=== PATIENT | female | born 1955 | race Caucasian/White ===

== ENCOUNTER → 2018-07-19 07:21 | Outpatient (CLI) | payer OTHER, SELFPAY ==
[2018-07-19 08:06] LABS: Add Manual Diff / Slide Review NO; Basophils Percent Auto 1.1 % (0-2); Eosinophils Percent Auto 3.9 % (2-4); Hematocrit 39.2 % (36-46); Hemoglobin 13.3 g/dL (12.0-16.0); Lymphocytes Percent Auto 35.3 % (25-40); Mean Corpuscular HGB Conc 33.8 % (30-36); Mean Corpuscular Hemoglobin 29.6 PG (26-34); Mean Corpuscular Volume 87.7 fL (80-100); Monocytes Percent Auto 6.6 % (3-14); Neutrophils Absolute Auto 2600 /uL (1500-7000); Neutrophils Percent Auto 53.1 % (50-75); Platelet Count 245 X10^3/uL (150-400); Red Blood Cell Count 4.48 X10^6/uL (4.0-5.2); Red Cell Distribution Width 13.4 % (11.6-14.8); White Blood Cell Count 4.9 X10^3/uL (4.5-11.0)
[2018-07-19 08:09] LABS: Appearance Urine UA CLEAR; Bilirubin Urine UA NEGATIVE (NEGATIVE); Color Urine UA YELLOW; Glucose Urine UA NEGATIVE (Negative); Ketones Urine UA NEGATIVE (NEGATIVE); Leukocyte Esterase Urine UA 1+ (NEGATIVE); Nitrite Urine UA NEGATIVE (Negative); Occult Blood Urine UA NEGATIVE (Negative); Protein Urine UA NEGATIVE (Negative); Specific Gravity Urine UA >=1.030 (1.000-1.035); Urobilinogen Urine UA 0.2 E.U./dL (0.2)
[2018-07-19 08:12] LABS: RBC Urine None Seen (0-5/HPF)
[2018-07-19 08:15] LABS: Alanine Aminotransferase 29 IU/L (9-52); Albumin 4.5 g/dL (3.5-5.0); Albumin Globulin Ratio 1.6 (1.0-2.8); Alkaline Phosphatase 66 U/L (38-126); Aspartate Aminotransferase 20 IU/L (14-36); BUN Creatinine Ratio 20.8 (6-22); Bilirubin Total 0.5 mg/dL (0.2-1.3); Blood Urea Nitrogen 27 mg/dL (7-17); Carbon Dioxide 25 mmol/L (22-32); Chloride 107 mmol/L (98-107); Cholesterol 235 mg/dL (140-199); Estimated Glomerular Filt Rate 41.4 mL/min (>60); Globulin 2.8 g/dL (1.7-4.1); Glucose 90 mg/dL (80-110); HDL Cholesterol 41 mg/dL (40-60); HEMOLYSIS < 15 (0-50); LDL Cholesterol Calculated 165 mg/dL (<100); Potassium 4.3 mmol/L (3.4-5.1); Sodium 142 mmol/L (137-145); Total Protein 7.3 g/dL (6.3-8.2); Triglycerides 146 mg/dL (35-150)
[2018-07-19 08:21] LABS: Squamous Epithelial Cell Urine 1-5 /HPF; WBC Urine 5-10/HPF (0-5/HPF)
[2018-07-19 08:22] LABS: Bacteria Urine Few (2-10); Culture Indicated Urine Specimen Cultured
[2018-07-19 08:35] LABS: Free T3, Triiodothyronine Free 2.57 pg/mL (2.77-5.27); Free T4, Direct Thyroxine 0.98 ng/dL (0.78-2.19)
[2018-07-19 08:48] LABS: Thyroid Stimulating Hormone 3.01 uIU/mL (0.47-4.68)
== END ==
PROVIDERS: Family Provider Family Medicine; PCP Family Medicine; Visit Provider Family Medicine
DX: E03.9 Hypothyroidism, unspecified (principal); I10 Essential (primary) hypertension; N18.9 Chronic kidney disease, unspecified; R73.03 Prediabetes
CPT/HCPCS: 36415; 80053; 80061; 81003; 81015; 84439; 84443; 84481; 85025; 87086

== ENCOUNTER → 2018-08-09 11:31 | Outpatient (CLI) | payer OTHER, SELFPAY ==
--- NOTE | 2018-08-09 11:37 | DI.MG.S_ITS ---
BILATERAL DIGITAL SCREENING MAMMOGRAM 3D/2D WITH CAD: 08/09/2018 CLINICAL: Routine screening. Comparison is made to exams dated: 09/13/2016 mammogram, 03/17/2014 mammogram, and 03/03/2014 mammogram - [facility]. There are scattered fibroglandular elements in both breasts. Current study was also evaluated with a Computer Aided Detection (CAD) system. No significant masses, calcifications, or other findings are seen in either breast. There has been no significant interval change. IMPRESSION: NEGATIVE There is no mammographic evidence of malignancy. A 1 year screening mammogram is recommended. This exam was interpreted at Station ID: [id number]. NOTE: For mammograms, a report in lay terms will be sent to the patient. Approximately 15% of breast malignancies will not be visualized mammographically. In the management of a palpable breast mass, a negative mammogram must not discourage biopsy of a clinically suspicious lesion. Electronically Signed By: Arun cantor/anirudh:08/09/2018 16:57:06 letter sent: Normal Exam ACR BI-RADS Category 1: Negative [id number]
== END ==
PROVIDERS: Family Provider Family Medicine; PCP Family Medicine; Visit Provider Family Medicine
DX: Z12.31 Encounter for screening mammogram for malignant neoplasm of breast (principal)
CPT/HCPCS: 77063; 77067

== ENCOUNTER → 2018-11-18 07:47 | Outpatient (CLI) | payer OTHER, SELFPAY ==
[2018-11-18 09:46] LABS: Hemoglobin A1C% w Est Avg Glu 5.4 % (4.0-6.0)
[2018-11-18 10:12] LABS: Alanine Aminotransferase 35 IU/L (9-52); Albumin 4.6 g/dL (3.5-5.0); Albumin Globulin Ratio 2.1 (1.0-2.8); Alkaline Phosphatase 80 U/L (38-126); Aspartate Aminotransferase 26 IU/L (14-36); BUN Creatinine Ratio 19.1 (6-22); Bilirubin Total 0.6 mg/dL (0.2-1.3); Blood Urea Nitrogen 21 mg/dL (7-17); Calcium 10.2 mg/dL (8.4-10.2); Carbon Dioxide 27 mmol/L (22-32); Chloride 102 mmol/L (98-107); Cholesterol 150 mg/dL (140-199); Estimated Glomerular Filt Rate 50.2 mL/min (>60); Globulin 2.2 g/dL (1.7-4.1); Glucose 77 mg/dL (80-110); HDL Cholesterol 42 mg/dL (40-60); HEMOLYSIS < 15 (0-50); LDL Cholesterol Calculated 89 mg/dL (<100); Potassium 4.6 mmol/L (3.4-5.1); Sodium 140 mmol/L (137-145); Total Protein 6.8 g/dL (6.3-8.2); Triglycerides 97 mg/dL (35-150)
== END ==
PROVIDERS: PCP Family Medicine; Visit Provider Family Medicine
DX: E78.2 Mixed hyperlipidemia (principal); I12.9 Hypertensive chronic kidney disease with stage 1 through stage 4 chronic kidney disease, or unspecified chronic kidney disease; N18.9 Chronic kidney disease, unspecified
CPT/HCPCS: 36415; 80053; 80061; 83036

== ENCOUNTER → 2018-12-16 13:34 | Outpatient (CLI) | payer OTHER, SELFPAY ==
--- NOTE | 2018-12-16 13:36 | DI.RAD.S_ITS ---
PROCEDURE: XR CERVICAL SPINE 2V OR 3V INDICATIONS: neck and lumbar pain TECHNIQUE: 3 view(s) of the cervical spine were acquired. COMPARISON: None. FINDINGS: Bones: No fractures or dislocations to the T1 level. The lateral masses of C1 appear intact on the odontoid view. No suspicious bony lesions. Note is made of a mild degree of degenerative disc disease at C4-5 and C67. There is a moderate degree of such degeneration at C5-6. No subluxation is associated. Soft tissues: No prevertebral soft tissue swelling. IMPRESSION: Mild to moderate degenerative disc disease over the mid cervical spine best seen at C5-6 where a definite presence of of spinal stenosis is not seen. Dictated by: Kyle Packer M.D. on 12/16/2018 at 14:11 Approved by: Kyle Packer M.D. on 12/16/2018 at 14:13
--- NOTE | 2018-12-16 13:36 | DI.RAD.S_ITS ---
PROCEDURE: XR LUMBAR SPINE 2-3V INDICATIONS: neck and lumbar pain TECHNIQUE: 3 views of the lumbar spine were acquired. COMPARISON: None. FINDINGS: Bones: 5 [id number] vertebrae are present. There is normal bony alignment. No vertebral body compression fractures. No suspicious bony lesions. Soft tissues: Overlying bowel gas pattern is normal. No suspicious soft tissue calcifications. IMPRESSION: The lumbosacral spine shows minimal L5-S1 degenerative disc height reduction and facet osteoarthritis without spinal or foraminal stenosis likely present. Dictated by: Kyle Packer M.D. on 12/16/2018 at 14:13 Approved by: Kyle Packer M.D. on 12/16/2018 at 14:13
== END ==
PROVIDERS: PCP Family Medicine; Visit Provider Family Medicine
DX: M50.322 Other cervical disc degeneration at C5-C6 level (principal); M54.5 Low back pain
CPT/HCPCS: 72040; 72100

== ENCOUNTER → 2019-04-29 14:19 | Outpatient (CLI) | payer OTHER, SELFPAY ==
[2019-04-29 14:33] LABS: Bacteria Urine None Seen
[2019-04-29 15:15] LABS: Hemoglobin A1C% w Est Avg Glu 5.5 % (4.0-6.0)
[2019-04-29 15:18] LABS: Appearance Urine UA CLEAR; Bilirubin Urine UA NEGATIVE (NEGATIVE); Color Urine UA YELLOW; Glucose Urine UA NEGATIVE (Negative); Ketones Urine UA NEGATIVE (NEGATIVE); Leukocyte Esterase Urine UA NEGATIVE (NEGATIVE); Nitrite Urine UA NEGATIVE (Negative); Occult Blood Urine UA NEGATIVE (Negative); Protein Urine UA NEGATIVE (Negative); Urobilinogen Urine UA 0.2 E.U./dL (0.2)
[2019-04-29 15:27] LABS: Culture Indicated Urine Cult Not Indicated; RBC Urine 0-1/HPF (0-5/HPF); WBC Urine 0-1/HPF (0-5/HPF); pH Urine UA 5.5 (4.5-8.0)
[2019-04-29 15:51] LABS: Creatinine Urine Random 82.5 mg/dL
[2019-04-29 15:53] LABS: Alanine Aminotransferase 32 IU/L (9-52); Albumin 4.5 g/dL (3.5-5.0); Albumin Globulin Ratio 1.8 (1.0-2.8); Alkaline Phosphatase 68 U/L (38-126); Aspartate Aminotransferase 27 IU/L (14-36); BUN Creatinine Ratio 19.2 (6-22); Bilirubin Total 0.6 mg/dL (0.2-1.3); Blood Urea Nitrogen 23 mg/dL (7-17); Calcium 9.8 mg/dL (8.4-10.2); Carbon Dioxide 28 mmol/L (22-32); Chloride 104 mmol/L (98-107); Cholesterol 177 mg/dL (140-199); Estimated Glomerular Filt Rate 45.2 mL/min (>60); Globulin 2.5 g/dL (1.7-4.1); Glucose 134 mg/dL (80-110); HDL Cholesterol 58 mg/dL (40-60); HEMOLYSIS < 15 (0-50); LDL Cholesterol Calculated 101 mg/dL (<100); Potassium 4.1 mmol/L (3.4-5.1); Sodium 139 mmol/L (137-145); Triglycerides 91 mg/dL (35-150)
[2019-04-29 16:00] LABS: Microalbumi Creatinin Ratio Ur 7.2 ug/mg CR (<30); Microalbumin Urine Random < 0.6 mg/dL (0-1.6)
[2019-04-29 16:06] LABS: Free T3, Triiodothyronine Free 2.84 pg/mL (2.77-5.27); Free T4, Direct Thyroxine 0.97 ng/dL (0.78-2.19)
[2019-04-29 16:20] LABS: Thyroid Stimulating Hormone 1.89 uIU/mL (0.47-4.68)
== END ==
PROVIDERS: PCP Family Medicine; Visit Provider Specialist
DX: N18.2 Chronic kidney disease, stage 2 (mild) (principal); R80.9 Proteinuria, unspecified; E03.9 Hypothyroidism, unspecified; E11.9 Type 2 diabetes mellitus without complications; E78.5 Hyperlipidemia, unspecified; I10 Essential (primary) hypertension
CPT/HCPCS: 80053; 80061; 81001; 82043; 82570; 83036; 84439; 84443; 84481; 85999

== ENCOUNTER → 2019-06-04 10:43 | Outpatient (CLI) | payer OTHER, SELFPAY ==
[2019-06-04 10:59] LABS: Add Manual Diff / Slide Review NO; Basophils Absolute Auto 0 /uL (0-100); Basophils Percent Auto 0.8 % (0-2); Eosinophils Absolute Auto 200 /uL (0-450); Eosinophils Percent Auto 4.1 % (2-4); Hematocrit 38.4 % (36-46); Hemoglobin 13.2 g/dL (12.0-16.0); Lymphocytes Absolute Auto 1800 /uL (1100-4500); Lymphocytes Percent Auto 30.1 % (25-40); Mean Corpuscular HGB Conc 34.3 % (30-36); Mean Corpuscular Hemoglobin 30.3 PG (26-34); Mean Corpuscular Volume 88.3 fL (80-100); Monocytes Absolute Auto 500 /uL (0-900); Monocytes Percent Auto 8.2 % (3-14); Neutrophils Absolute Auto 3300 /uL (1500-7000); Neutrophils Percent Auto 56.8 % (50-75); Platelet Count 231 X10^3/uL (150-400); Red Blood Cell Count 4.35 X10^6/uL (4.0-5.2); Red Cell Distribution Width 13.4 % (11.6-14.8); White Blood Cell Count 5.8 X10^3/uL (4.5-11.0)
[2019-06-04 11:12] LABS: Alanine Aminotransferase 48 IU/L (<35); Albumin 4.3 g/dL (3.5-5.0); Albumin Globulin Ratio 1.7 (1.0-2.8); Alkaline Phosphatase 63 U/L (38-126); Aspartate Aminotransferase 41 IU/L (14-36); BUN Creatinine Ratio 19.2 (6-22); Bilirubin Total 0.5 mg/dL (0.2-1.3); Blood Urea Nitrogen 25 mg/dL (7-17); Calcium 10.1 mg/dL (8.4-10.2); Carbon Dioxide 30 mmol/L (22-32); Chloride 105 mmol/L (98-107); Estimated Glomerular Filt Rate 41.2 mL/min (>60); Globulin 2.6 g/dL (1.7-4.1); Glucose 72 mg/dL (80-110); HEMOLYSIS < 15 (0-50); Potassium 4.2 mmol/L (3.4-5.1); Sodium 142 mmol/L (137-145); Total Protein 6.9 g/dL (6.3-8.2)
== END ==
PROVIDERS: PCP Family Medicine; Visit Provider Family Medicine
DX: R10.32 Left lower quadrant pain (principal)
CPT/HCPCS: 36415; 80053; 85025

== ENCOUNTER → 2019-06-04 11:01 | Outpatient (CLI) | payer OTHER, SELFPAY ==
--- NOTE | 2019-06-04 11:15 | DI.CT.S_ITS ---
PROCEDURE: CT ABDOMEN PELVIS W CON INDICATIONS: Left lower quad abd pain TECHNIQUE: After the administration of intravenous contrast, 5 mm thick sections acquired from the diaphragm to the symphysis. 5 mm coronal and sagittal reformats were acquired. For radiation dose reduction, the following was used: automated exposure control, adjustment of mA and/or kV according to patient size. COMPARISON: None. FINDINGS: Image quality: Excellent. ABDOMEN: Lung bases: Lung bases are clear. Heart size is normal. Solid organs: Liver is normal in size and enhancement. Gallbladder is unremarkable the. Biliary system is non dilated. Pancreas enhances normally. Spleen is normal in size and enhancement. No adrenal nodules. Kidneys demonstrate normal size and enhancement, without hydronephrosis. Peritoneum and bowel: Bowel loops demonstrate normal wall thickness and caliber. No free fluid or air. Mild sigmoid diverticulosis without evidence of diverticulitis. Normal appendix. No abscess. Nodes and vessels: No retroperitoneal or mesenteric adenopathy by size criteria. Aorta and inferior vena cava are normal in size. Miscellaneous: No ventral hernias. PELVIS: Genitourinary: Bladder wall thickness is normal. Miscellaneous: No inguinal hernias or adenopathy. Bones: No suspicious bony lesions. No vertebral body compression fractures. IMPRESSION: Mild sigmoid diverticulosis without evidence of diverticulitis. Otherwise negative study. Dictated by: Augustine Varela M.D. on 06/04/2019 at 13:24 Approved by: Augustine Varela M.D. on 06/04/2019 at 13:26
== END ==
PROVIDERS: PCP Family Medicine; Visit Provider Family Medicine
DX: R10.32 Left lower quadrant pain (principal); K57.30 Diverticulosis of large intestine without perforation or abscess without bleeding
CPT/HCPCS: 36415; 74177; 80053; 85025; Q9967

== ENCOUNTER 2019-06-12 10:30 | Outpatient (RCR) | payer OTHER, SELFPAY ==
--- NOTE | 2018-12-24 18:21 | PT.OIE ---
Current Diagnoses Pain in right knee (12/24/18) Pain in left knee (12/24/18) Cervicalgia (12/24/18) Low back pain (12/24/18) Abnormal posture (12/24/18) Weakness (12/24/18) Past Medical History (Last Reviewed 08/07/18 @ 12:40 by Camila Waer DO) Anemia (Chronic) Breast cancer (Chronic ~05/2014) Colon polyps (Chronic ~2015) Diverticular disease (Chronic ~2015) Eczema (Chronic) Endometriosis (Chronic) Foot pain (Chronic ~2017) Heart murmur (Chronic) Heavy menstrual period (Chronic) Hemorrhoid (Chronic) Hypertension (Chronic) Hyperthyroidism (Chronic) Hypothyroidism (Chronic) Kidney failure (Chronic) Osteoarthritis (Chronic) Psoriasis (Chronic) Rheumatoid arthritis (Chronic) Seasonal allergies (Chronic) Sleep apnea (Chronic) Tinnitus (Chronic) Vision disorder (Chronic) Chicken pox (Resolved) Past Surgical History (Last Reviewed 08/07/18 @ 12:40 by Camila Ware DO) Anesthesia (Resolved) History of skin graft (Resolved ~2012) History of surgery on arm (Resolved ~2012) History of tonsillectomy (Resolved ~1983) Provider Visit Care Team Role Provider Type Camila Ware DO Attending Provider Physician Primary Care Provider Specialty: [facility] Practice Address: [address] [place] [address] Email: [email or web address] Physical Therapy Initial Evaluation PT-OP-A Visit Information Start: 12/23/18 11:09 Freq: Status: Active Protocol: Document 12/24/18 14:37 [facility] (Rec: 12/24/18 15:20 [facility] [id number]) Out-Patient Physical Therapy Visit Information Visit Information Visit Type Initial Evaluation Visit Start Time 14:35 Visit Stop Time 15:20 Total Visit Minutes 45 Visit Number 1 Number of PROGRAM STRATEGIST Visits 0 PT-OP-B Current Condition Start: 12/23/18 11:09 Freq: Status: Active Protocol: Document 12/24/18 14:37 [facility] (Rec: 12/24/18 15:20 [facility] [id number]) Current Condition History of Current Condition Current Complaints LBP, neck pain, B knees History of Current Condition Pt reports about 2 months ago she was moving and was moving a box and her back started hurting. REports she has learned to compensate for it but she has difficulty with ADLs like bending over to put on socks. Pt reports d/t neck pain she has difficulty with turning her neck when driving. Pt reprots getting out of bed has been difficult on her back. Pt has been working on losing weight and has lost 35 lbs so far. She goes for a 45 min walk every morning and wants to start yoga class but is scared d/t back, neck and knee pain. She cannot kneel d/ t knee pain. Pt has history of knee pain B for 10 years. Pt reports neck doesn't hurt as much but is really stiff. Pt reports she has reduced kidney function (50 GFR), which limits her ability to take pain killers. Prior Treatments and Tests Xrays showing mild degeneragtion Treatment Goals Patient/Caregiver Goals Learn how to hold her body, strengthen back and knees to be able to go to yoga class PT-OP-C Subjective Start: 12/23/18 11:09 Freq: Status: Active Protocol: Document 12/24/18 14:37 [facility] (Rec: 12/24/18 15:20 [facility] [id number]) Patient Questionnaires Neck Disability Index NDI Score 5 Neck Disability Index Impairment 1 to 19% Impaired (Score 1-9) Oswestry Low Back Index Oswestry Score 26 Oswestry Impairment 20 to 39% Impaired (Score 20- 39) OP-PT Pain Assessment Location neck Description- Other stiffness Other Pain Aggravating Factors driving LBP Pain Location Details R SI Intensity 4 Scale Used Numeric (1 - 10) Description Aching Frequency Intermittent Pain Duration goes away fairly fast once stopping activity Pain Aggravating Factors ADL's Sitting Bending Other Pain Aggravating Factors figure 4 position, getting out of bed Pain Alleviating Factors Heat Other Pain Alleviating Factors stop doing motion PT-OP-F Manual Assessment Start: 12/23/18 11:09 Freq: Status: Active Protocol: Document 12/24/18 14:37 [facility] (Rec: 12/24/18 15:20 [facility] [id number]) Manual Assessments Joint Mobility Assessment Joint Mobility Assessment R ant elevated innominate PT-OP-G Mobility & Gait Start: 12/23/18 11:09 Freq: Status: Active Protocol: Document 12/24/18 14:37 [facility] (Rec: 12/24/18 18:20 [facility] [id number]) OP Gait Assessment Comments Gait Comments Pt is primarily a leg walker with some transverse plane rotation but no appropriate pelvic patterns. PT-OP-J Posture/Palpation/Skin Start: 12/23/18 11:09 Freq: Status: Active Protocol: Document 12/24/18 14:37 [facility] (Rec: 12/24/18 15:20 [facility] [id number]) Posture Evaluation [facility] Postural Classification System [facility] Postural Classifications Anterior/Posterior Vertebral Compression Test 0 Elbow Flexion Test 1 Lumbar Protective Mechanism Left AP 1 Lumbar Protective Mechanism Right AP 0 Lumbar Protective Mechanism Left PA 0 Lumbar Protective Mechanism Right PA 1 Leg Swing Left Hard End Feel PT-OP-K Range of Motion Start: 12/23/18 11:09 Freq: Status: Active Protocol: Document 12/24/18 14:37 [facility] (Rec: 12/24/18 15:20 [facility] [id number]) Cervical Spine Range of Motion Cervical Spine Active Degrees Testing Position Sitting Flexion 34 Extension 35 Rotation Left 28 Rotation Right 22 Lateral Flexion Left 5 Lateral Flexion Right 21 Lumbar Spine Range of Motion Lumbar Spine Active Degrees Flexion 50 Extension 25 Rotation Left 36 Rotation Right 34 Lateral Flexion Left 19 Lateral Flexion Right 21 Comments hinge at L3 w/ext PT-OP-L Special Tests Start: 12/23/18 11:09 Freq: Status: Active Protocol: Document 12/24/18 14:37 [facility] (Rec: 12/24/18 15:20 [facility] [id number]) Special Tests Cervical Spine Special Tests Vertebrobasilar Test Results neg Alar Ligament Test Results neg Spurling's Test Test Results neg Lumbar Spine Special Tests Slump Test Results neg Mark Test Results tight iliopsoas & RF B Straight Leg Raise Test Results neg PT-OP-M Strength Start: 12/23/18 11:09 Freq: Status: Active Protocol: Document 12/24/18 14:37 [facility] (Rec: 12/24/18 15:20 [facility] [id number]) Shoulder Strength Shoulder Manual Muscle Testing Left Flexion 4+ Good+ Extension 4 Good Abduction (C5) 4+ Good+ External Rotation 4- Good- Internal Rotation 4 Good Right External Rotation 4- Good- Internal Rotation 4 Good Hip Strength Hip Manual Muscle Testing Left Flexion (L2) 4+ Good+ Extension (S1) 3+ Fair+ Abduction 3 Fair Adduction 5 Normal External Rotation 4 Good Internal Rotation 4 Good Right Flexion (L2) 4 Good Extension (S1) 3+ Fair+ Abduction 3 Fair Adduction 4- Good- External Rotation 4- Good- Internal Rotation 4 Good Knee Strength Knee Manual Muscle Testing Left Flexion (S2) 5 Normal Extension (L3) 5 Normal Right Flexion (S2) 5 Normal Extension (L3) 5 Normal Ankle/Foot Strength Ankle and Foot Manual Muscle Testing Right Dorsiflexion (L4) 5 Normal Plantarflexion (S1) 4 Good Left Dorsiflexion (L4) 5 Normal Plantarflexion (S1) 4+ Good+ Comments pain in buttocks w/heel raises PT-OP-Q Treatments Start: 12/23/18 11:09 Freq: Status: Active Protocol: Document 12/24/18 14:37 [facility] (Rec: 12/24/18 18:19 [facility] [id number]) Therapeutic Exercises Supine Exercises pelvic tilt Supine Exercise Name post Reps/Minutes 10 Comments cueing for breathing mark test Comments stopped d/t pain SKTC Side right Comments stopped d/t pain LTR Supine Exercise Name focus on core activiaton Side bilateral Reps/Minutes 15 Sitting Exercises neck ROM Sitting Exercise Name flex/ext, rot & SB Side bilateral Reps/Minutes 3 ea PT-OP-T Assessment and Plan Start: 12/23/18 11:09 Freq: Status: Active Protocol: Document 12/24/18 14:37 [facility] (Rec: 12/24/18 18:19 [facility] [id number]) Physical Therapy Assessment Rehab Potential Rehabilitation Potential Good Evaluation Complexity Number of Personal Factors/Comorbidities 3 or More Number of Body Systems Impaired 4 or More Clinical Presentation at Evaluation Evolving Impairments Impairments Activity Tolerance Balance Functional Activities Functional Mobility Gait Pain Posture ROM Soft Tissue Mobility Strength Goals activity Short Term Goal (STG) Pt will be able to attend a yoga class without inc pain. STG Duration 01/23/19 Penitentiary Goal (LTG) Pt will be able to get up/down from the ground without reported difficulty. LTG Duration 02/23/19 ROM Oxyacetylene Cutter Goal (LTG) Pt will have full neck ROM allowing her to drive without difficutly. LTG Duration 02/23/19 strength Short Term Goal (STG) Pt will be indep with HEP. STG Duration 01/23/19 Penitentiary Goal (LTG) Pt will have 5/5 LE, UE strength, LPM, EFT & VCT to show improved core stability, postural alignment and allow her to do her recreational and daily activities without pain . LTG Duration 02/23/19 Assessment Summary Assessment Pt presents with neck pain, LBP & B knee pain with gradual inc pain after onset of LBP and neck stifnness after moving 2 months ago. She has dec core & LE strength and impaired posture and gait mechanics and would benefit from skilled PT to address these deficits. Physical Therapy Plan Frequency and Duration Frequency of Treatment 2x/Week Duration of Treatment 2 months Plan of Care Start Date 12/24/18 Plan of Care End Date 02/23/19 Therapeutic Interventions Therapeutic Interventions Aquatic Therapy Balance Training Gait Training Home Exercise Program Joint Mobilizations Manual Therapy Neuromuscular Re-education Patient/Caregiver Education Self-Care/Home Management Sensory Integration Soft Tissue Mobilization Taping Therapeutic Activities Therapeutic Exercises Modalities Cold Pack/Ice Massage Electric Stimulation Hot Packs Infrared Therapy Iontophoresis Traction- Mechanical Next Visit Focus/Plan Next Note Type Treatment Note Next Visit Plan postural edu; STM to paraspinals, hip mobilizations & thoracic mobs, foam roll
--- NOTE | 2018-12-24 18:21 | PT.OPPOC ---
Current Diagnoses Pain in right knee (12/24/18) Pain in left knee (12/24/18) Cervicalgia (12/24/18) Low back pain (12/24/18) Abnormal posture (12/24/18) Weakness (12/24/18) Provider Visit Care Team Role Provider Type Camila Ware DO Attending Provider Physician Primary Care Provider Specialty: Family Practice Address: [address] [place] [address], [facility] Email: [email or web address] Plan Of Care PT-OP-T Assessment and Plan Start: 12/23/18 11:09 Freq: Status: Active Protocol: Document 12/24/18 14:37 [facility] (Rec: 12/24/18 18:19 [facility] [id number]) Physical Therapy Assessment Rehab Potential Rehabilitation Potential Good Evaluation Complexity Number of Personal Factors/Comorbidities 3 or More Number of Body Systems Impaired 4 or More Clinical Presentation at Evaluation Evolving Impairments Impairments Activity Tolerance Balance Functional Activities Functional Mobility Gait Pain Posture ROM Soft Tissue Mobility Strength Goals activity Short Term Goal (STG) Pt will be able to attend a yoga class without inc pain. STG Duration 01/23/19 Retirement Goal (LTG) Pt will be able to get up/down from the ground without reported difficulty. LTG Duration 02/23/19 ROM Material Handler 2Nd Shift Goal (LTG) Pt will have full neck ROM allowing her to drive without difficutly. LTG Duration 02/23/19 strength Short Term Goal (STG) Pt will be indep with HEP. STG Duration 01/23/19 Retirement Goal (LTG) Pt will have 5/5 LE, UE strength, LPM, EFT & VCT to show improved core stability, postural alignment and allow her to do her recreational and daily activities without pain . LTG Duration 02/23/19 Assessment Summary Assessment Pt presents with neck pain, LBP & B knee pain with gradual inc pain after onset of LBP and neck stifnness after moving 2 months ago. She has dec core & LE strength and impaired posture and gait mechanics and would benefit from skilled PT to address these deficits. Physical Therapy Plan Frequency and Duration Frequency of Treatment 2x/Week Duration of Treatment 2 months Plan of Care Start Date 12/24/18 Plan of Care End Date 02/23/19 Therapeutic Interventions Therapeutic Interventions Aquatic Therapy Balance Training Gait Training Home Exercise Program Joint Mobilizations Manual Therapy Neuromuscular Re-education Patient/Caregiver Education Self-Care/Home Management Sensory Integration Soft Tissue Mobilization Taping Therapeutic Activities Therapeutic Exercises Modalities Cold Pack/Ice Massage Electric Stimulation Hot Packs Infrared Therapy Iontophoresis Traction- Mechanical Next Visit Focus/Plan Next Note Type Treatment Note Next Visit Plan postural edu; STM to paraspinals, hip mobilizations & thoracic mobs, foam roll Plan of Care Dates Plan of Care Start Date 12/24/18 Plan of Care End Date 02/23/19 Please Sign and Return: I have reviewed this Plan of Care and certify that the skilled therapy services above are required to meet the patient?s needs. Physician Signature Date Printed Name and Credentials Clinical Instructor Signature Printed Name and Credentials
--- NOTE | 2018-12-26 12:02 | PT.OTN ---
Current Diagnoses Pain in right knee (12/26/18) Pain in left knee (12/26/18) Cervicalgia (12/26/18) Low back pain (12/26/18) Abnormal posture (12/26/18) Weakness (12/26/18) Physical Therapy Treatment Note PT-OP-A Visit Information Start: 12/23/18 11:09 Freq: Status: Active Protocol: Document 12/26/18 10:20 [facility] (Rec: 12/26/18 11:13 [facility] [id number]) Out-Patient Physical Therapy Visit Information Visit Information Visit Type Treatment Note Visit Start Time 10:25 Visit Stop Time 11:05 Total Visit Minutes 40 Visit Number 2 Number of MYSQL DEVELOPER Visits 0 PT-OP-B Current Condition Start: 12/23/18 11:09 Freq: Status: Active Protocol: Document 12/24/18 14:37 [facility] (Rec: 12/24/18 15:20 [facility] [id number]) Current Condition History of Current Condition Current Complaints LBP, neck pain, B knees History of Current Condition Pt reports about 2 months ago she was moving and was moving a box and her back started hurting. REports she has learned to compensate for it but she has difficulty with ADLs like bending over to put on socks. Pt reports d/t neck pain she has difficulty with turning her neck when driving. Pt reprots getting out of bed has been difficult on her back. Pt has been working on losing weight and has lost 35 lbs so far. She goes for a 45 min walk every morning and wants to start yoga class but is scared d/t back, neck and knee pain. She cannot kneel d/ t knee pain. Pt has history of knee pain B for 10 years. Pt reports neck doesn't hurt as much but is really stiff. Pt reports she has reduced kidney function (50 GFR), which limits her ability to take pain killers. Prior Treatments and Tests Xrays showing mild degeneragtion Treatment Goals Patient/Caregiver Goals Learn how to hold her body, strengthen back and knees to be able to go to yoga class PT-OP-C Subjective Start: 12/23/18 11:09 Freq: Status: Active Protocol: Document 12/26/18 10:20 [facility] (Rec: 12/26/18 11:13 [facility] [id number]) OP-PT Subjective Patient Comments Patient Comments Pt reports compliance w/ HEP PT-OP-F Manual Assessment Start: 12/23/18 11:09 Freq: Status: Active Protocol: Document 12/24/18 14:37 [facility] (Rec: 12/24/18 15:20 [facility] [id number]) Manual Assessments Joint Mobility Assessment Joint Mobility Assessment R ant elevated innominate PT-OP-G Mobility & Gait Start: 12/23/18 11:09 Freq: Status: Active Protocol: Document 12/24/18 14:37 [facility] (Rec: 12/24/18 18:20 [facility] [id number]) OP Gait Assessment Comments Gait Comments Pt is primarily a leg walker with some transverse plane rotation but no appropriate pelvic patterns. PT-OP-J Posture/Palpation/Skin Start: 12/23/18 11:09 Freq: Status: Active Protocol: Document 12/24/18 14:37 [facility] (Rec: 12/24/18 15:20 [facility] [id number]) Posture Evaluation [facility] Postural Classification System [facility] Postural Classifications Anterior/Posterior Vertebral Compression Test 0 Elbow Flexion Test 1 Lumbar Protective Mechanism Left AP 1 Lumbar Protective Mechanism Right AP 0 Lumbar Protective Mechanism Left PA 0 Lumbar Protective Mechanism Right PA 1 Leg Swing Left Hard End Feel PT-OP-K Range of Motion Start: 12/23/18 11:09 Freq: Status: Active Protocol: Document 12/24/18 14:37 [facility] (Rec: 12/24/18 15:20 [facility] [id number]) Cervical Spine Range of Motion Cervical Spine Active Degrees Testing Position Sitting Flexion 34 Extension 35 Rotation Left 28 Rotation Right 22 Lateral Flexion Left 5 Lateral Flexion Right 21 Lumbar Spine Range of Motion Lumbar Spine Active Degrees Flexion 50 Extension 25 Rotation Left 36 Rotation Right 34 Lateral Flexion Left 19 Lateral Flexion Right 21 Comments hinge at L3 w/ext PT-OP-L Special Tests Start: 12/23/18 11:09 Freq: Status: Active Protocol: Document 12/24/18 14:37 [facility] (Rec: 12/24/18 15:20 [facility] [id number]) Special Tests Cervical Spine Special Tests Vertebrobasilar Test Results neg Alar Ligament Test Results neg Spurling's Test Test Results neg Lumbar Spine Special Tests Slump Test Results neg Mark Test Results tight iliopsoas & RF B Straight Leg Raise Test Results neg PT-OP-M Strength Start: 12/23/18 11:09 Freq: Status: Active Protocol: Document 12/24/18 14:37 [facility] (Rec: 12/24/18 15:20 [facility] [id number]) Shoulder Strength Shoulder Manual Muscle Testing Left Flexion 4+ Good+ Extension 4 Good Abduction (C5) 4+ Good+ External Rotation 4- Good- Internal Rotation 4 Good Right External Rotation 4- Good- Internal Rotation 4 Good Hip Strength Hip Manual Muscle Testing Left Flexion (L2) 4+ Good+ Extension (S1) 3+ Fair+ Abduction 3 Fair Adduction 5 Normal External Rotation 4 Good Internal Rotation 4 Good Right Flexion (L2) 4 Good Extension (S1) 3+ Fair+ Abduction 3 Fair Adduction 4- Good- External Rotation 4- Good- Internal Rotation 4 Good Knee Strength Knee Manual Muscle Testing Left Flexion (S2) 5 Normal Extension (L3) 5 Normal Right Flexion (S2) 5 Normal Extension (L3) 5 Normal Ankle/Foot Strength Ankle and Foot Manual Muscle Testing Right Dorsiflexion (L4) 5 Normal Plantarflexion (S1) 4 Good Left Dorsiflexion (L4) 5 Normal Plantarflexion (S1) 4+ Good+ Comments pain in buttocks w/heel raises PT-OP-Q Treatments Start: 12/23/18 11:09 Freq: Status: Active Protocol: Document 12/26/18 10:20 [facility] (Rec: 12/26/18 11:13 [facility] [id number]) Therapeutic Exercises Supine Exercises bridge Supine Exercise Name w/arms overhead Reps/Minutes 15 chin tuck Supine Exercise Name chin tuck Reps/Minutes 10 pelvic tilt Supine Exercise Name post Reps/Minutes 10 Comments cueing to hold LTR Supine Exercise Name focus on core activiaton Side bilateral Reps/Minutes 8 Sidelying Exercises roll & reach Sidelying Exercise Name roll & reach Side bilateral Reps/Minutes 10 Sitting Exercises neck ROM Sitting Exercise Name chin tuck Reps/Minutes 5 Standing Exercises wall posture Standing Exercise Name w/90/90 ER Side bilateral Reps/Minutes 15 Therapeutic Activity Therapeutic Activity floor transfer Name up/down w/chair posture Name standing posture & edu of importance Comments in mirror Manual Therapy Treatment Soft Tissue Mobilization ES/QL Body Location R Mobilization Type Rolling PT-OP-R Modalities Start: 12/23/18 11:09 Freq: Status: Active Protocol: Document 12/26/18 10:20 [facility] (Rec: 12/26/18 12:02 [facility] [id number]) Hot Pack/Cold Pack Treatment Hot Pack Location lumbar & cervical Patient Position Hooklying Treatment Duration (minutes) 15 PT-OP-T Assessment and Plan Start: 12/23/18 11:09 Freq: Status: Active Protocol: Document 12/26/18 10:20 [facility] (Rec: 12/26/18 11:13 [facility] [id number]) Physical Therapy Assessment Goals activity Short Term Goal (STG) Pt will be able to attend a yoga class without inc pain. STG Duration 01/23/19 Residential Goal (LTG) Pt will be able to get up/down from the ground without reported difficulty. LTG Duration 02/23/19 ROM Banding Machine Operator Goal (LTG) Pt will have full neck ROM allowing her to drive without difficutly. LTG Duration 02/23/19 strength Short Term Goal (STG) Pt will be indep with HEP. STG Duration 01/23/19 Banding Machine Operator Goal (LTG) Pt will have 5/5 LE, UE strength, LPM, EFT & VCT to show improved core stability, postural alignment and allow her to do her recreational and daily activities without pain . LTG Duration 02/23/19 Assessment Summary Assessment pt tolerated all new exercises with cueing for breathing & core engagement and no inc in pain. She has R>L sided tightenss that improves with STM Physical Therapy Plan Frequency and Duration Frequency of Treatment 2x/Week Duration of Treatment 2 months Plan of Care Start Date 12/24/18 Plan of Care End Date 02/23/19 Next Visit Focus/Plan Next Note Type Treatment Note Next Visit Plan hip mobs & advance core
--- NOTE | 2019-01-01 16:03 | PT.OTN ---
Current Diagnoses Pain in right knee (01/01/19) Pain in left knee (01/01/19) Cervicalgia (01/01/19) Low back pain (01/01/19) Abnormal posture (01/01/19) Weakness (01/01/19) Physical Therapy Treatment Note PT-OP-A Visit Information Start: 12/23/18 11:09 Freq: Status: Active Protocol: Document 01/01/19 12:59 [facility] (Rec: 01/01/19 16:03 [facility] [id number]) Out-Patient Physical Therapy Visit Information Visit Information Visit Type Treatment Note Visit Start Time 13:45 Visit Stop Time 14:25 Total Visit Minutes 40 Visit Number 3 Number of IMPROVEMENT ENGINEER Visits 0 PT-OP-B Current Condition Start: 12/23/18 11:09 Freq: Status: Active Protocol: Document 12/24/18 14:37 [facility] (Rec: 12/24/18 15:20 [facility] [id number]) Current Condition History of Current Condition Current Complaints LBP, neck pain, B knees History of Current Condition Pt reports about 2 months ago she was moving and was moving a box and her back started hurting. REports she has learned to compensate for it but she has difficulty with ADLs like bending over to put on socks. Pt reports d/t neck pain she has difficulty with turning her neck when driving. Pt reprots getting out of bed has been difficult on her back. Pt has been working on losing weight and has lost 35 lbs so far. She goes for a 45 min walk every morning and wants to start yoga class but is scared d/t back, neck and knee pain. She cannot kneel d/ t knee pain. Pt has history of knee pain B for 10 years. Pt reports neck doesn't hurt as much but is really stiff. Pt reports she has reduced kidney function (50 GFR), which limits her ability to take pain killers. Prior Treatments and Tests Xrays showing mild degeneragtion Treatment Goals Patient/Caregiver Goals Learn how to hold her body, strengthen back and knees to be able to go to yoga class PT-OP-C Subjective Start: 12/23/18 11:09 Freq: Status: Active Protocol: Document 01/01/19 12:59 [facility] (Rec: 01/01/19 16:03 [facility] [id number]) OP-PT Subjective Patient Comments Patient Comments Pt reports compliance w/ HEP. question about posture PT-OP-F Manual Assessment Start: 12/23/18 11:09 Freq: Status: Active Protocol: Document 12/24/18 14:37 [facility] (Rec: 12/24/18 15:20 [facility] [id number]) Manual Assessments Joint Mobility Assessment Joint Mobility Assessment R ant elevated innominate PT-OP-G Mobility & Gait Start: 12/23/18 11:09 Freq: Status: Active Protocol: Document 12/24/18 14:37 [facility] (Rec: 12/24/18 18:20 [facility] [id number]) OP Gait Assessment Comments Gait Comments Pt is primarily a leg walker with some transverse plane rotation but no appropriate pelvic patterns. PT-OP-J Posture/Palpation/Skin Start: 12/23/18 11:09 Freq: Status: Active Protocol: Document 12/24/18 14:37 [facility] (Rec: 12/24/18 15:20 [facility] [id number]) Posture Evaluation [facility] Postural Classification System [facility] Postural Classifications Anterior/Posterior Vertebral Compression Test 0 Elbow Flexion Test 1 Lumbar Protective Mechanism Left AP 1 Lumbar Protective Mechanism Right AP 0 Lumbar Protective Mechanism Left PA 0 Lumbar Protective Mechanism Right PA 1 Leg Swing Left Hard End Feel PT-OP-K Range of Motion Start: 12/23/18 11:09 Freq: Status: Active Protocol: Document 12/24/18 14:37 [facility] (Rec: 12/24/18 15:20 [facility] [id number]) Cervical Spine Range of Motion Cervical Spine Active Degrees Testing Position Sitting Flexion 34 Extension 35 Rotation Left 28 Rotation Right 22 Lateral Flexion Left 5 Lateral Flexion Right 21 Lumbar Spine Range of Motion Lumbar Spine Active Degrees Flexion 50 Extension 25 Rotation Left 36 Rotation Right 34 Lateral Flexion Left 19 Lateral Flexion Right 21 Comments hinge at L3 w/ext PT-OP-L Special Tests Start: 12/23/18 11:09 Freq: Status: Active Protocol: Document 12/24/18 14:37 [facility] (Rec: 12/24/18 15:20 [facility] [id number]) Special Tests Cervical Spine Special Tests Vertebrobasilar Test Results neg Alar Ligament Test Results neg Spurling's Test Test Results neg Lumbar Spine Special Tests Slump Test Results neg Makr Test Results tight iliopsoas & RF B Straight Leg Raise Test Results neg PT-OP-M Strength Start: 12/23/18 11:09 Freq: Status: Active Protocol: Document 12/24/18 14:37 [facility] (Rec: 12/24/18 15:20 [facility] [id number]) Shoulder Strength Shoulder Manual Muscle Testing Left Flexion 4+ Good+ Extension 4 Good Abduction (C5) 4+ Good+ External Rotation 4- Good- Internal Rotation 4 Good Right External Rotation 4- Good- Internal Rotation 4 Good Hip Strength Hip Manual Muscle Testing Left Flexion (L2) 4+ Good+ Extension (S1) 3+ Fair+ Abduction 3 Fair Adduction 5 Normal External Rotation 4 Good Internal Rotation 4 Good Right Flexion (L2) 4 Good Extension (S1) 3+ Fair+ Abduction 3 Fair Adduction 4- Good- External Rotation 4- Good- Internal Rotation 4 Good Knee Strength Knee Manual Muscle Testing Left Flexion (S2) 5 Normal Extension (L3) 5 Normal Right Flexion (S2) 5 Normal Extension (L3) 5 Normal Ankle/Foot Strength Ankle and Foot Manual Muscle Testing Right Dorsiflexion (L4) 5 Normal Plantarflexion (S1) 4 Good Left Dorsiflexion (L4) 5 Normal Plantarflexion (S1) 4+ Good+ Comments pain in buttocks w/heel raises PT-OP-Q Treatments Start: 12/23/18 11:09 Freq: Status: Active Protocol: Document 01/01/19 12:59 [facility] (Rec: 01/01/19 16:03 [facility] [id number]) Therapeutic Exercises Supine Exercises bridge Supine Exercise Name w/marching Side bilateral Reps/Minutes 10 chin tuck Supine Exercise Name chin tuck Reps/Minutes 10 pelvic tilt Supine Exercise Name w/bent knee scissors Side bilateral Reps/Minutes 10 LTR Supine Exercise Name focus on core activiaton Side bilateral Reps/Minutes 5 Comments w/1 knee bent up Sitting Exercises stretches Sitting Exercise Name UT, LS, Scalenes, HS, thoracic rotation, lumbar flx, piriformis & figure 4 Side bilateral Reps/Minutes 30 sec neck ROM Sitting Exercise Name chin tuck Reps/Minutes 5 Standing Exercises hip flexor Standing Exercise Name stretch Side bilateral Reps/Minutes 30 sec wall posture Standing Exercise Name w/90/90 ER Side bilateral Reps/Minutes 15 Therapeutic Activity Therapeutic Activity posture Name standing posture & edu of importance Comments in mirror Manual Therapy Treatment Soft Tissue Mobilization ES/QL Body Location B Mobilization Type Rolling Joint Mobilizations hip Joint B Direction ER FM PT-OP-R Modalities Start: 12/23/18 11:09 Freq: Status: Active Protocol: Document 12/26/18 10:20 [facility] (Rec: 12/26/18 12:02 [facility] [id number]) Hot Pack/Cold Pack Treatment Hot Pack Location lumbar & cervical Patient Position Hooklying Treatment Duration (minutes) 15 PT-OP-T Assessment and Plan Start: 12/23/18 11:09 Freq: Status: Active Protocol: Document 01/01/19 12:59 [facility] (Rec: 01/01/19 16:03 [facility] [id number]) Physical Therapy Assessment Goals activity Short Term Goal (STG) Pt will be able to attend a yoga class without inc pain. STG Duration 01/23/19 Work Ticket Distributor Goal (LTG) Pt will be able to get up/down from the ground without reported difficulty. LTG Duration 02/23/19 ROM Work Ticket Distributor Goal (LTG) Pt will have full neck ROM allowing her to drive without difficutly. LTG Duration 02/23/19 strength Short Term Goal (STG) Pt will be indep with HEP. STG Duration 01/23/19 Mcc Goal (LTG) Pt will have 5/5 LE, UE strength, LPM, EFT & VCT to show improved core stability, postural alignment and allow her to do her recreational and daily activities without pain . LTG Duration 02/23/19 Assessment Summary Assessment Pt given stretching exercises d/t leaving for a trip next week where seh will be riding in car extended. Pt able to improve hip ROM with mobs. She was able to progress in core exercises today without inc pain Physical Therapy Plan Frequency and Duration Frequency of Treatment 2x/Week Duration of Treatment 2 months Plan of Care Start Date 12/24/18 Plan of Care End Date 02/23/19 Next Visit Focus/Plan Next Note Type Treatment Note Next Visit Plan STM to neck & mobs as needed; adavnace core
--- NOTE | 2019-01-03 16:24 | PT.OTN ---
Current Diagnoses Pain in right knee (01/03/19) Pain in left knee (01/03/19) Cervicalgia (01/03/19) Low back pain (01/03/19) Abnormal posture (01/03/19) Weakness (01/03/19) Physical Therapy Treatment Note PT-OP-A Visit Information Start: 12/23/18 11:09 Freq: Status: Active Protocol: Document 01/03/19 09:45 [facility]B (Rec: 01/03/19 16:24 AMB [id number]) Out-Patient Physical Therapy Visit Information Visit Information Visit Type Treatment Note Visit Start Time 09:45 Visit Stop Time 10:30 Total Visit Minutes 45 Visit Number 4 Number of PASTRY WRAPPER Visits 0 PT-OP-B Current Condition Start: 12/23/18 11:09 Freq: Status: Active Protocol: Document 12/24/18 14:37 [facility] (Rec: 12/24/18 15:20 [facility] [id number]) Current Condition History of Current Condition Current Complaints LBP, neck pain, B knees History of Current Condition Pt reports about 2 months ago she was moving and was moving a box and her back started hurting. REports she has learned to compensate for it but she has difficulty with ADLs like bending over to put on socks. Pt reports d/t neck pain she has difficulty with turning her neck when driving. Pt reprots getting out of bed has been difficult on her back. Pt has been working on losing weight and has lost 35 lbs so far. She goes for a 45 min walk every morning and wants to start yoga class but is scared d/t back, neck and knee pain. She cannot kneel d/ t knee pain. Pt has history of knee pain B for 10 years. Pt reports neck doesn't hurt as much but is really stiff. Pt reports she has reduced kidney function (50 GFR), which limits her ability to take pain killers. Prior Treatments and Tests Xrays showing mild degeneragtion Treatment Goals Patient/Caregiver Goals Learn how to hold her body, strengthen back and knees to be able to go to yoga class PT-OP-C Subjective Start: 12/23/18 11:09 Freq: Status: Active Protocol: Document 01/03/19 09:45 AMB (Rec: 01/03/19 16:24 AMB [id number]) OP-PT Subjective Patient Comments Patient Comments Pt reports had some back pain last night with doing single leg bridges, but doing exercises. PT-OP-F Manual Assessment Start: 12/23/18 11:09 Freq: Status: Active Protocol: Document 12/24/18 14:37 [facility] (Rec: 12/24/18 15:20 [facility] [id number]) Manual Assessments Joint Mobility Assessment Joint Mobility Assessment R ant elevated innominate PT-OP-G Mobility & Gait Start: 12/23/18 11:09 Freq: Status: Active Protocol: Document 12/24/18 14:37 [facility] (Rec: 12/24/18 18:20 [facility] [id number]) OP Gait Assessment Comments Gait Comments Pt is primarily a leg walker with some transverse plane rotation but no appropriate pelvic patterns. PT-OP-J Posture/Palpation/Skin Start: 12/23/18 11:09 Freq: Status: Active Protocol: Document 12/24/18 14:37 [facility] (Rec: 12/24/18 15:20 [facility] [id number]) Posture Evaluation [facility] Postural Classification System [facility] Postural Classifications Anterior/Posterior Vertebral Compression Test 0 Elbow Flexion Test 1 Lumbar Protective Mechanism Left AP 1 Lumbar Protective Mechanism Right AP 0 Lumbar Protective Mechanism Left PA 0 Lumbar Protective Mechanism Right PA 1 Leg Swing Left Hard End Feel PT-OP-K Range of Motion Start: 12/23/18 11:09 Freq: Status: Active Protocol: Document 12/24/18 14:37 [facility] (Rec: 12/24/18 15:20 [facility] [id number]) Cervical Spine Range of Motion Cervical Spine Active Degrees Testing Position Sitting Flexion 34 Extension 35 Rotation Left 28 Rotation Right 22 Lateral Flexion Left 5 Lateral Flexion Right 21 Lumbar Spine Range of Motion Lumbar Spine Active Degrees Flexion 50 Extension 25 Rotation Left 36 Rotation Right 34 Lateral Flexion Left 19 Lateral Flexion Right 21 Comments hinge at L3 w/ext PT-OP-L Special Tests Start: 12/23/18 11:09 Freq: Status: Active Protocol: Document 12/24/18 14:37 [facility] (Rec: 12/24/18 15:20 [facility] [id number]) Special Tests Cervical Spine Special Tests Vertebrobasilar Test Results neg Alar Ligament Test Results neg Spurling's Test Test Results neg Lumbar Spine Special Tests Slump Test Results neg Mark Test Results tight iliopsoas & RF B Straight Leg Raise Test Results neg PT-OP-M Strength Start: 12/23/18 11:09 Freq: Status: Active Protocol: Document 12/24/18 14:37 [facility] (Rec: 12/24/18 15:20 [facility] [id number]) Shoulder Strength Shoulder Manual Muscle Testing Left Flexion 4+ Good+ Extension 4 Good Abduction (C5) 4+ Good+ External Rotation 4- Good- Internal Rotation 4 Good Right External Rotation 4- Good- Internal Rotation 4 Good Hip Strength Hip Manual Muscle Testing Left Flexion (L2) 4+ Good+ Extension (S1) 3+ Fair+ Abduction 3 Fair Adduction 5 Normal External Rotation 4 Good Internal Rotation 4 Good Right Flexion (L2) 4 Good Extension (S1) 3+ Fair+ Abduction 3 Fair Adduction 4- Good- External Rotation 4- Good- Internal Rotation 4 Good Knee Strength Knee Manual Muscle Testing Left Flexion (S2) 5 Normal Extension (L3) 5 Normal Right Flexion (S2) 5 Normal Extension (L3) 5 Normal Ankle/Foot Strength Ankle and Foot Manual Muscle Testing Right Dorsiflexion (L4) 5 Normal Plantarflexion (S1) 4 Good Left Dorsiflexion (L4) 5 Normal Plantarflexion (S1) 4+ Good+ Comments pain in buttocks w/heel raises PT-OP-Q Treatments Start: 12/23/18 11:09 Freq: Status: Active Protocol: Document 01/03/19 09:45 AMB (Rec: 01/03/19 16:24 AMB [id number]) Therapeutic Exercises Supine Exercises bridge Supine Exercise Name single leg Side bilateral Reps/Minutes 10 Comments vc slower chin tuck Supine Exercise Name chin tuck Reps/Minutes 10 Other Exercises 3 Other Exercise Name quadruped UE flx Reps/Minutes 2x10 Comments with TrA stabilization 2 Other Exercise Name thread the needle Reps/Minutes 5 ea Comments vc slow 1 Other Exercise Name luli pose Comments with and without SB Manual Therapy Treatment Soft Tissue Mobilization 1 Body Location UT, cervical paraspinals, suboccipitals Mobilization Type Myofascial Release Intensity/Depth Moderate Body Position Hooklying Other Other Manual Treatments contract relax into cervical rotation PT-OP-R Modalities Start: 12/23/18 11:09 Freq: Status: Active Protocol: Document 12/26/18 10:20 [facility] (Rec: 12/26/18 12:02 [facility] [id number]) Hot Pack/Cold Pack Treatment Hot Pack Location lumbar & cervical Patient Position Hooklying Treatment Duration (minutes) 15 PT-OP-T Assessment and Plan Start: 12/23/18 11:09 Freq: Status: Active Protocol: Document 01/03/19 09:45 AMB (Rec: 01/03/19 16:24 AMB [id number]) Physical Therapy Assessment Assessment Summary Assessment Pt displayed better ROM s/p manual, tolerated quadruped exercises well on cushioned mat table. Physical Therapy Plan Next Visit Focus/Plan Next Note Type Treatment Note Next Visit Plan STM to neck & mobs as needed; advance core
--- NOTE | 2019-01-07 10:49 | PT.OTN ---
Current Diagnoses Pain in right knee (01/07/19) Pain in left knee (01/07/19) Cervicalgia (01/07/19) Low back pain (01/07/19) Abnormal posture (01/07/19) Weakness (01/07/19) Physical Therapy Treatment Note PT-OP-A Visit Information Start: 12/23/18 11:09 Freq: Status: Active Protocol: Document 01/07/19 09:55 [facility] (Rec: 01/07/19 10:48 [facility] [id number]) Out-Patient Physical Therapy Visit Information Visit Information Visit Type Treatment Note Visit Start Time 09:50 Visit Stop Time 10:30 Total Visit Minutes 40 Visit Number 5 Number of UNDERWRITING SERVICE REPRESENTATIVE Visits 0 PT-OP-B Current Condition Start: 12/23/18 11:09 Freq: Status: Active Protocol: Document 12/24/18 14:37 [facility] (Rec: 12/24/18 15:20 [facility] [id number]) Current Condition History of Current Condition Current Complaints LBP, neck pain, B knees History of Current Condition Pt reports about 2 months ago she was moving and was moving a box and her back started hurting. REports she has learned to compensate for it but she has difficulty with ADLs like bending over to put on socks. Pt reports d/t neck pain she has difficulty with turning her neck when driving. Pt reprots getting out of bed has been difficult on her back. Pt has been working on losing weight and has lost 35 lbs so far. She goes for a 45 min walk every morning and wants to start yoga class but is scared d/t back, neck and knee pain. She cannot kneel d/ t knee pain. Pt has history of knee pain B for 10 years. Pt reports neck doesn't hurt as much but is really stiff. Pt reports she has reduced kidney function (50 GFR), which limits her ability to take pain killers. Prior Treatments and Tests Xrays showing mild degeneragtion Treatment Goals Patient/Caregiver Goals Learn how to hold her body, strengthen back and knees to be able to go to yoga class PT-OP-C Subjective Start: 12/23/18 11:09 Freq: Status: Active Protocol: Document 01/03/19 09:45 [facility] (Rec: 01/03/19 16:24 AMB [id number]) OP-PT Subjective Patient Comments Patient Comments Pt reports had some back pain last night with doing single leg bridges, but doing exercises. PT-OP-F Manual Assessment Start: 12/23/18 11:09 Freq: Status: Active Protocol: Document 12/24/18 14:37 [facility] (Rec: 12/24/18 15:20 [facility] [id number]) Manual Assessments Joint Mobility Assessment Joint Mobility Assessment R ant elevated innominate PT-OP-G Mobility & Gait Start: 12/23/18 11:09 Freq: Status: Active Protocol: Document 12/24/18 14:37 [facility] (Rec: 12/24/18 18:20 [facility] [id number]) OP Gait Assessment Comments Gait Comments Pt is primarily a leg walker with some transverse plane rotation but no appropriate pelvic patterns. PT-OP-J Posture/Palpation/Skin Start: 12/23/18 11:09 Freq: Status: Active Protocol: Document 12/24/18 14:37 [facility] (Rec: 12/24/18 15:20 [facility] [id number]) Posture Evaluation [facility] Postural Classification System [facility] Postural Classifications Anterior/Posterior Vertebral Compression Test 0 Elbow Flexion Test 1 Lumbar Protective Mechanism Left AP 1 Lumbar Protective Mechanism Right AP 0 Lumbar Protective Mechanism Left PA 0 Lumbar Protective Mechanism Right PA 1 Leg Swing Left Hard End Feel PT-OP-K Range of Motion Start: 12/23/18 11:09 Freq: Status: Active Protocol: Document 12/24/18 14:37 [facility] (Rec: 12/24/18 15:20 [facility] [id number]) Cervical Spine Range of Motion Cervical Spine Active Degrees Testing Position Sitting Flexion 34 Extension 35 Rotation Left 28 Rotation Right 22 Lateral Flexion Left 5 Lateral Flexion Right 21 Lumbar Spine Range of Motion Lumbar Spine Active Degrees Flexion 50 Extension 25 Rotation Left 36 Rotation Right 34 Lateral Flexion Left 19 Lateral Flexion Right 21 Comments hinge at L3 w/ext PT-OP-L Special Tests Start: 12/23/18 11:09 Freq: Status: Active Protocol: Document 12/24/18 14:37 [facility] (Rec: 12/24/18 15:20 [facility] [id number]) Special Tests Cervical Spine Special Tests Vertebrobasilar Test Results neg Alar Ligament Test Results neg Spurling's Test Test Results neg Lumbar Spine Special Tests Slump Test Results neg Mark Test Results tight iliopsoas & RF B Straight Leg Raise Test Results neg PT-OP-M Strength Start: 12/23/18 11:09 Freq: Status: Active Protocol: Document 12/24/18 14:37 [facility] (Rec: 12/24/18 15:20 [facility] [id number]) Shoulder Strength Shoulder Manual Muscle Testing Left Flexion 4+ Good+ Extension 4 Good Abduction (C5) 4+ Good+ External Rotation 4- Good- Internal Rotation 4 Good Right External Rotation 4- Good- Internal Rotation 4 Good Hip Strength Hip Manual Muscle Testing Left Flexion (L2) 4+ Good+ Extension (S1) 3+ Fair+ Abduction 3 Fair Adduction 5 Normal External Rotation 4 Good Internal Rotation 4 Good Right Flexion (L2) 4 Good Extension (S1) 3+ Fair+ Abduction 3 Fair Adduction 4- Good- External Rotation 4- Good- Internal Rotation 4 Good Knee Strength Knee Manual Muscle Testing Left Flexion (S2) 5 Normal Extension (L3) 5 Normal Right Flexion (S2) 5 Normal Extension (L3) 5 Normal Ankle/Foot Strength Ankle and Foot Manual Muscle Testing Right Dorsiflexion (L4) 5 Normal Plantarflexion (S1) 4 Good Left Dorsiflexion (L4) 5 Normal Plantarflexion (S1) 4+ Good+ Comments pain in buttocks w/heel raises PT-OP-Q Treatments Start: 12/23/18 11:09 Freq: Status: Active Protocol: Document 01/07/19 09:55 [facility] (Rec: 01/07/19 10:48 [facility] [id number]) Therapeutic Exercises Supine Exercises chin tuck Supine Exercise Name axial elongation Reps/Minutes 5 sec 5 pelvic tilt Supine Exercise Name w/bent knee scissors Side bilateral Reps/Minutes 10 LTR Supine Exercise Name focus on core activiaton Side bilateral Reps/Minutes 10 Comments knees in air Other Exercises 3 Other Exercise Name quadruped UE flx & LE ext Reps/Minutes 2x10 Comments with TrA stabilization Manual Therapy Treatment Soft Tissue Mobilization 1 Body Location UT, cervical paraspinals, suboccipitals Mobilization Type Myofascial Release Intensity/Depth Moderate Body Position Hooklying Joint Mobilizations thoracic Joint T1-3 Direction L transverse FM PT-OP-R Modalities Start: 12/23/18 11:09 Freq: Status: Active Protocol: Document 12/26/18 10:20 [facility] (Rec: 12/26/18 12:02 [facility] [id number]) Hot Pack/Cold Pack Treatment Hot Pack Location lumbar & cervical Patient Position Hooklying Treatment Duration (minutes) 15 PT-OP-T Assessment and Plan Start: 12/23/18 11:09 Freq: Status: Active Protocol: Document 01/07/19 09:55 [facility] (Rec: 01/07/19 10:48 [facility] [id number]) Physical Therapy Assessment Goals activity Short Term Goal (STG) Pt will be able to attend a yoga class without inc pain. STG Duration 01/23/19 Alf Goal (LTG) Pt will be able to get up/down from the ground without reported difficulty. LTG Duration 02/23/19 ROM Alf Goal (LTG) Pt will have full neck ROM allowing her to drive without difficutly. LTG Duration 02/23/19 strength Short Term Goal (STG) Pt will be indep with HEP. STG Duration 01/23/19 Alf Goal (LTG) Pt will have 5/5 LE, UE strength, LPM, EFT & VCT to show improved core stability, postural alignment and allow her to do her recreational and daily activities without pain . LTG Duration 02/23/19 Assessment Summary Assessment Pt able to tolerate progression of exercises without inc pain. IMproved ROM with mobs & STM Physical Therapy Plan Frequency and Duration Frequency of Treatment 2x/Week Duration of Treatment 2 months Plan of Care Start Date 12/24/18 Plan of Care End Date 02/23/19 Next Visit Focus/Plan Next Note Type Treatment Note Next Visit Plan STM to neck & mobs as needed; advance core
--- NOTE | 2019-01-28 09:42 | PT.OTN ---
Current Diagnoses Pain in right knee (01/28/19) Pain in left knee (01/28/19) Cervicalgia (01/28/19) Low back pain (01/28/19) Abnormal posture (01/28/19) Weakness (01/28/19) Physical Therapy Treatment Note PT-OP-A Visit Information Start: 12/23/18 11:09 Freq: Status: Active Protocol: Document 01/28/19 08:16 [facility] (Rec: 01/28/19 09:41 [facility] [id number]) Out-Patient Physical Therapy Visit Information Visit Information Visit Type Treatment Note Visit Start Time 08:15 Visit Stop Time 09:03 Total Visit Minutes 48 Visit Number 6 Number of TRIM MACHINE ADJUSTER Visits 0 PT-OP-B Current Condition Start: 12/23/18 11:09 Freq: Status: Active Protocol: Document 12/24/18 14:37 [facility] (Rec: 12/24/18 15:20 [facility] [id number]) Current Condition History of Current Condition Current Complaints LBP, neck pain, B knees History of Current Condition Pt reports about 2 months ago she was moving and was moving a box and her back started hurting. REports she has learned to compensate for it but she has difficulty with ADLs like bending over to put on socks. Pt reports d/t neck pain she has difficulty with turning her neck when driving. Pt reprots getting out of bed has been difficult on her back. Pt has been working on losing weight and has lost 35 lbs so far. She goes for a 45 min walk every morning and wants to start yoga class but is scared d/t back, neck and knee pain. She cannot kneel d/ t knee pain. Pt has history of knee pain B for 10 years. Pt reports neck doesn't hurt as much but is really stiff. Pt reports she has reduced kidney function (50 GFR), which limits her ability to take pain killers. Prior Treatments and Tests Xrays showing mild degeneragtion Treatment Goals Patient/Caregiver Goals Learn how to hold her body, strengthen back and knees to be able to go to yoga class PT-OP-C Subjective Start: 12/23/18 11:09 Freq: Status: Active Protocol: Document 01/28/19 08:16 [facility] (Rec: 01/28/19 09:41 [facility] [id number]) OP-PT Subjective Patient Comments Patient Comments Pt reports she lost her sheets about 1.5 weeks ago. Notes neck range is doing a little better and she did work on that. Pt reports her back gives her a hard time went bending over and sometimes twisting. PT-OP-F Manual Assessment Start: 12/23/18 11:09 Freq: Status: Active Protocol: Document 12/24/18 14:37 [facility] (Rec: 12/24/18 15:20 [facility] [id number]) Manual Assessments Joint Mobility Assessment Joint Mobility Assessment R ant elevated innominate PT-OP-G Mobility & Gait Start: 12/23/18 11:09 Freq: Status: Active Protocol: Document 12/24/18 14:37 [facility] (Rec: 12/24/18 18:20 [facility] [id number]) OP Gait Assessment Comments Gait Comments Pt is primarily a leg walker with some transverse plane rotation but no appropriate pelvic patterns. PT-OP-J Posture/Palpation/Skin Start: 12/23/18 11:09 Freq: Status: Active Protocol: Document 12/24/18 14:37 [facility] (Rec: 12/24/18 15:20 [facility] [id number]) Posture Evaluation [place] Postural Classification System [place] Postural Classifications Anterior/Posterior Vertebral Compression Test 0 Elbow Flexion Test 1 Lumbar Protective Mechanism Left AP 1 Lumbar Protective Mechanism Right AP 0 Lumbar Protective Mechanism Left PA 0 Lumbar Protective Mechanism Right PA 1 Leg Swing Left Hard End Feel PT-OP-K Range of Motion Start: 12/23/18 11:09 Freq: Status: Active Protocol: Document 12/24/18 14:37 [facility] (Rec: 12/24/18 15:20 [facility] [id number]) Cervical Spine Range of Motion Cervical Spine Active Degrees Testing Position Sitting Flexion 34 Extension 35 Rotation Left 28 Rotation Right 22 Lateral Flexion Left 5 Lateral Flexion Right 21 Lumbar Spine Range of Motion Lumbar Spine Active Degrees Flexion 50 Extension 25 Rotation Left 36 Rotation Right 34 Lateral Flexion Left 19 Lateral Flexion Right 21 Comments hinge at L3 w/ext PT-OP-L Special Tests Start: 12/23/18 11:09 Freq: Status: Active Protocol: Document 12/24/18 14:37 [facility] (Rec: 12/24/18 15:20 [facility] [id number]) Special Tests Cervical Spine Special Tests Vertebrobasilar Test Results neg Alar Ligament Test Results neg Spurling's Test Test Results neg Lumbar Spine Special Tests Slump Test Results neg Mark Test Results tight iliopsoas & RF B Straight Leg Raise Test Results neg PT-OP-M Strength Start: 12/23/18 11:09 Freq: Status: Active Protocol: Document 12/24/18 14:37 [facility] (Rec: 12/24/18 15:20 [facility] [id number]) Shoulder Strength Shoulder Manual Muscle Testing Left Flexion 4+ Good+ Extension 4 Good Abduction (C5) 4+ Good+ External Rotation 4- Good- Internal Rotation 4 Good Right External Rotation 4- Good- Internal Rotation 4 Good Hip Strength Hip Manual Muscle Testing Left Flexion (L2) 4+ Good+ Extension (S1) 3+ Fair+ Abduction 3 Fair Adduction 5 Normal External Rotation 4 Good Internal Rotation 4 Good Right Flexion (L2) 4 Good Extension (S1) 3+ Fair+ Abduction 3 Fair Adduction 4- Good- External Rotation 4- Good- Internal Rotation 4 Good Knee Strength Knee Manual Muscle Testing Left Flexion (S2) 5 Normal Extension (L3) 5 Normal Right Flexion (S2) 5 Normal Extension (L3) 5 Normal Ankle/Foot Strength Ankle and Foot Manual Muscle Testing Right Dorsiflexion (L4) 5 Normal Plantarflexion (S1) 4 Good Left Dorsiflexion (L4) 5 Normal Plantarflexion (S1) 4+ Good+ Comments pain in buttocks w/heel raises PT-OP-Q Treatments Start: 12/23/18 11:09 Freq: Status: Active Protocol: Document 01/28/19 08:16 [facility] (Rec: 01/28/19 09:41 [facility] [id number]) Therapeutic Exercises Standing Exercises wall posture Standing Exercise Name w/90/90 ER Side bilateral Reps/Minutes 5x15 sec holds Therapeutic Activity Therapeutic Activity posture Name sitting posture Comments manual positioning & starting working on hip hinging Manual Therapy Treatment Soft Tissue Mobilization 1 Body Location UT, cervical paraspinals, suboccipitals Mobilization Type Myofascial Release Intensity/Depth Moderate Body Position Hooklying Comments w/flex & dicem Joint Mobilizations thoracic Joint T1-3 Direction PA FM PT-OP-R Modalities Start: 12/23/18 11:09 Freq: Status: Active Protocol: Document 12/26/18 10:20 [facility] (Rec: 12/26/18 12:02 [facility] [id number]) Hot Pack/Cold Pack Treatment Hot Pack Location lumbar & cervical Patient Position Hooklying Treatment Duration (minutes) 15 PT-OP-T Assessment and Plan Start: 12/23/18 11:09 Freq: Status: Active Protocol: Document 01/28/19 08:16 [facility] (Rec: 01/28/19 09:41 [facility] [id number]) Physical Therapy Assessment Goals activity Short Term Goal (STG) Pt will be able to attend a yoga class without inc pain. STG Duration 01/23/19 Correction Goal (LTG) Pt will be able to get up/down from the ground without reported difficulty. LTG Duration 02/23/19 ROM Ballpoint Pen Cartridge Tester Goal (LTG) Pt will have full neck ROM allowing her to drive without difficutly. LTG Duration 02/23/19 strength Short Term Goal (STG) Pt will be indep with HEP. STG Duration 01/23/19 Correction Goal (LTG) Pt will have 5/5 LE, UE strength, LPM, EFT & VCT to show improved core stability, postural alignment and allow her to do her recreational and daily activities without pain . LTG Duration 02/23/19 Assessment Summary Assessment Pt had improved 90./90 ER after 15 sec holds. She was able to achieve improved posture with min cueing at end of session and able to do hip hinging to initiate flex. Physical Therapy Plan Frequency and Duration Frequency of Treatment 2x/Week Duration of Treatment 2 months Plan of Care Start Date 12/24/18 Plan of Care End Date 02/23/19 Next Visit Focus/Plan Next Note Type Treatment Note Next Visit Plan active sitting
--- NOTE | 2019-01-30 11:02 | PT.OTN ---
Current Diagnoses Pain in right knee (01/30/19) Pain in left knee (01/30/19) Cervicalgia (01/30/19) Low back pain (01/30/19) Abnormal posture (01/30/19) Weakness (01/30/19) Physical Therapy Treatment Note PT-OP-A Visit Information Start: 12/23/18 11:09 Freq: Status: Active Protocol: Document 01/30/19 09:32 [facility] (Rec: 01/30/19 11:01 [facility] [id number]) Out-Patient Physical Therapy Visit Information Visit Information Visit Type Treatment Note Visit Start Time 09:45 Visit Stop Time 10:30 Total Visit Minutes 45 Visit Number 7 Number of BILL PEDDLER Visits 0 PT-OP-B Current Condition Start: 12/23/18 11:09 Freq: Status: Active Protocol: Document 12/24/18 14:37 [facility] (Rec: 12/24/18 15:20 [facility] [id number]) Current Condition History of Current Condition Current Complaints LBP, neck pain, B knees History of Current Condition Pt reports about 2 months ago she was moving and was moving a box and her back started hurting. REports she has learned to compensate for it but she has difficulty with ADLs like bending over to put on socks. Pt reports d/t neck pain she has difficulty with turning her neck when driving. Pt reprots getting out of bed has been difficult on her back. Pt has been working on losing weight and has lost 35 lbs so far. She goes for a 45 min walk every morning and wants to start yoga class but is scared d/t back, neck and knee pain. She cannot kneel d/ t knee pain. Pt has history of knee pain B for 10 years. Pt reports neck doesn't hurt as much but is really stiff. Pt reports she has reduced kidney function (50 GFR), which limits her ability to take pain killers. Prior Treatments and Tests Xrays showing mild degeneragtion Treatment Goals Patient/Caregiver Goals Learn how to hold her body, strengthen back and knees to be able to go to yoga class PT-OP-C Subjective Start: 12/23/18 11:09 Freq: Status: Active Protocol: Document 01/30/19 09:32 [facility] (Rec: 01/30/19 11:01 [facility] [id number]) OP-PT Subjective Patient Comments Patient Comments Pt reports working on her posture. PT-OP-F Manual Assessment Start: 12/23/18 11:09 Freq: Status: Active Protocol: Document 12/24/18 14:37 [facility] (Rec: 12/24/18 15:20 [facility] [id number]) Manual Assessments Joint Mobility Assessment Joint Mobility Assessment R ant elevated innominate PT-OP-G Mobility & Gait Start: 12/23/18 11:09 Freq: Status: Active Protocol: Document 12/24/18 14:37 [facility] (Rec: 12/24/18 18:20 [facility] [id number]) OP Gait Assessment Comments Gait Comments Pt is primarily a leg walker with some transverse plane rotation but no appropriate pelvic patterns. PT-OP-J Posture/Palpation/Skin Start: 12/23/18 11:09 Freq: Status: Active Protocol: Document 12/24/18 14:37 [facility] (Rec: 12/24/18 15:20 [facility] [id number]) Posture Evaluation [facility] Postural Classification System [facility] Postural Classifications Anterior/Posterior Vertebral Compression Test 0 Elbow Flexion Test 1 Lumbar Protective Mechanism Left AP 1 Lumbar Protective Mechanism Right AP 0 Lumbar Protective Mechanism Left PA 0 Lumbar Protective Mechanism Right PA 1 Leg Swing Left Hard End Feel PT-OP-K Range of Motion Start: 12/23/18 11:09 Freq: Status: Active Protocol: Document 12/24/18 14:37 [facility] (Rec: 12/24/18 15:20 [facility] [id number]) Cervical Spine Range of Motion Cervical Spine Active Degrees Testing Position Sitting Flexion 34 Extension 35 Rotation Left 28 Rotation Right 22 Lateral Flexion Left 5 Lateral Flexion Right 21 Lumbar Spine Range of Motion Lumbar Spine Active Degrees Flexion 50 Extension 25 Rotation Left 36 Rotation Right 34 Lateral Flexion Left 19 Lateral Flexion Right 21 Comments hinge at L3 w/ext PT-OP-L Special Tests Start: 12/23/18 11:09 Freq: Status: Active Protocol: Document 12/24/18 14:37 [facility] (Rec: 12/24/18 15:20 [facility] [id number]) Special Tests Cervical Spine Special Tests Vertebrobasilar Test Results neg Alar Ligament Test Results neg Spurling's Test Test Results neg Lumbar Spine Special Tests Slump Test Results neg Mark Test Results tight iliopsoas & RF B Straight Leg Raise Test Results neg PT-OP-M Strength Start: 12/23/18 11:09 Freq: Status: Active Protocol: Document 12/24/18 14:37 [facility] (Rec: 12/24/18 15:20 [facility] [id number]) Shoulder Strength Shoulder Manual Muscle Testing Left Flexion 4+ Good+ Extension 4 Good Abduction (C5) 4+ Good+ External Rotation 4- Good- Internal Rotation 4 Good Right External Rotation 4- Good- Internal Rotation 4 Good Hip Strength Hip Manual Muscle Testing Left Flexion (L2) 4+ Good+ Extension (S1) 3+ Fair+ Abduction 3 Fair Adduction 5 Normal External Rotation 4 Good Internal Rotation 4 Good Right Flexion (L2) 4 Good Extension (S1) 3+ Fair+ Abduction 3 Fair Adduction 4- Good- External Rotation 4- Good- Internal Rotation 4 Good Knee Strength Knee Manual Muscle Testing Left Flexion (S2) 5 Normal Extension (L3) 5 Normal Right Flexion (S2) 5 Normal Extension (L3) 5 Normal Ankle/Foot Strength Ankle and Foot Manual Muscle Testing Right Dorsiflexion (L4) 5 Normal Plantarflexion (S1) 4 Good Left Dorsiflexion (L4) 5 Normal Plantarflexion (S1) 4+ Good+ Comments pain in buttocks w/heel raises PT-OP-Q Treatments Start: 12/23/18 11:09 Freq: Status: Active Protocol: Document 01/30/19 09:32 [facility] (Rec: 01/30/19 11:01 [facility] [id number]) Therapeutic Exercises Standing Exercises hip hinge Standing Exercise Name w/ruler on back Side bilateral Reps/Minutes 10 squat Standing Exercise Name mini squat and sit to stand Side bilateral Reps/Minutes 15 ea Comments max cueing Therapeutic Activity Therapeutic Activity wt acceptance Name for sit to stand Comments faciliated through traction & resistance into RLE posture Name sitting posture Comments manual positioning & starting working on hip hinging; progressed into static standing posture with hip hinging Manual Therapy Treatment Soft Tissue Mobilization 1 Body Location UT, scalenes, SCM Mobilization Type Rolling Strumming Sustained Pressure Body Position Hooklying PT-OP-R Modalities Start: 12/23/18 11:09 Freq: Status: Active Protocol: Document 12/26/18 10:20 [facility] (Rec: 12/26/18 12:02 [facility] [id number]) Hot Pack/Cold Pack Treatment Hot Pack Location lumbar & cervical Patient Position Hooklying Treatment Duration (minutes) 15 PT-OP-T Assessment and Plan Start: 12/23/18 11:09 Freq: Status: Active Protocol: Document 01/30/19 09:32 [facility] (Rec: 01/30/19 11:01 [facility] [id number]) Physical Therapy Assessment Goals activity Short Term Goal (STG) Pt will be able to attend a yoga class without inc pain. STG Duration 01/23/19 Glass Rolling Machine Operator Goal (LTG) Pt will be able to get up/down from the ground without reported difficulty. LTG Duration 02/23/19 ROM Glass Rolling Machine Operator Goal (LTG) Pt will have full neck ROM allowing her to drive without difficutly. LTG Duration 02/23/19 strength Short Term Goal (STG) Pt will be indep with HEP. STG Duration 01/23/19 Prison Goal (LTG) Pt will have 5/5 LE, UE strength, LPM, EFT & VCT to show improved core stability, postural alignment and allow her to do her recreational and daily activities without pain . LTG Duration 02/23/19 Assessment Summary Assessment Pt is improving with posture with cueing but does have difficulty maintaining vertical positioned ribcage. She was able to do appropriate wt acceptance into LE for sit to stand after training with neutral back position. Physical Therapy Plan Frequency and Duration Frequency of Treatment 2x/Week Duration of Treatment 2 months Plan of Care Start Date 12/24/18 Plan of Care End Date 02/23/19 Next Visit Focus/Plan Next Note Type Treatment Note Next Visit Plan Work on squating and resisted walking in standing with wt shift
--- NOTE | 2019-02-06 13:30 | PT.OTN ---
Current Diagnoses Pain in right knee (02/06/19) Pain in left knee (02/06/19) Cervicalgia (02/06/19) Low back pain (02/06/19) Abnormal posture (02/06/19) Weakness (02/06/19) Physical Therapy Treatment Note PT-OP-A Visit Information Start: 12/23/18 11:09 Freq: Status: Active Protocol: Document 02/06/19 11:45 [facility] (Rec: 02/06/19 12:03 [facility] [id number]) Out-Patient Physical Therapy Visit Information Visit Information Visit Type Treatment Note Visit Start Time 09:45 Visit Stop Time 10:30 Total Visit Minutes 45 Visit Number 8 Number of OBJECTIVE C DEVELOPER Visits 0 PT-OP-B Current Condition Start: 12/23/18 11:09 Freq: Status: Active Protocol: Document 12/24/18 14:37 [facility] (Rec: 12/24/18 15:20 [facility] [id number]) Current Condition History of Current Condition Current Complaints LBP, neck pain, B knees History of Current Condition Pt reports about 2 months ago she was moving and was moving a box and her back started hurting. REports she has learned to compensate for it but she has difficulty with ADLs like bending over to put on socks. Pt reports d/t neck pain she has difficulty with turning her neck when driving. Pt reprots getting out of bed has been difficult on her back. Pt has been working on losing weight and has lost 35 lbs so far. She goes for a 45 min walk every morning and wants to start yoga class but is scared d/t back, neck and knee pain. She cannot kneel d/ t knee pain. Pt has history of knee pain B for 10 years. Pt reports neck doesn't hurt as much but is really stiff. Pt reports she has reduced kidney function (50 GFR), which limits her ability to take pain killers. Prior Treatments and Tests Xrays showing mild degeneragtion Treatment Goals Patient/Caregiver Goals Learn how to hold her body, strengthen back and knees to be able to go to yoga class PT-OP-C Subjective Start: 12/23/18 11:09 Freq: Status: Active Protocol: Document 02/06/19 11:45 [facility] (Rec: 02/06/19 12:03 [facility] [id number]) OP-PT Subjective Patient Comments Patient Comments Pt reports she is still very confused about the posture stuff. She wonders when her neck stiffness will loosen up and if stretching and posture exercises will help. Pt excited to go through yoga postures today. PT-OP-F Manual Assessment Start: 12/23/18 11:09 Freq: Status: Active Protocol: Document 12/24/18 14:37 [facility] (Rec: 12/24/18 15:20 [facility] [id number]) Manual Assessments Joint Mobility Assessment Joint Mobility Assessment R ant elevated innominate PT-OP-G Mobility & Gait Start: 12/23/18 11:09 Freq: Status: Active Protocol: Document 12/24/18 14:37 [facility] (Rec: 12/24/18 18:20 [facility] [id number]) OP Gait Assessment Comments Gait Comments Pt is primarily a leg walker with some transverse plane rotation but no appropriate pelvic patterns. PT-OP-J Posture/Palpation/Skin Start: 12/23/18 11:09 Freq: Status: Active Protocol: Document 12/24/18 14:37 [facility] (Rec: 12/24/18 15:20 [facility] [id number]) Posture Evaluation [facility] Postural Classification System [facility] Postural Classifications Anterior/Posterior Vertebral Compression Test 0 Elbow Flexion Test 1 Lumbar Protective Mechanism Left AP 1 Lumbar Protective Mechanism Right AP 0 Lumbar Protective Mechanism Left PA 0 Lumbar Protective Mechanism Right PA 1 Leg Swing Left Hard End Feel PT-OP-K Range of Motion Start: 12/23/18 11:09 Freq: Status: Active Protocol: Document 12/24/18 14:37 [facility] (Rec: 12/24/18 15:20 [facility] [id number]) Cervical Spine Range of Motion Cervical Spine Active Degrees Testing Position Sitting Flexion 34 Extension 35 Rotation Left 28 Rotation Right 22 Lateral Flexion Left 5 Lateral Flexion Right 21 Lumbar Spine Range of Motion Lumbar Spine Active Degrees Flexion 50 Extension 25 Rotation Left 36 Rotation Right 34 Lateral Flexion Left 19 Lateral Flexion Right 21 Comments hinge at L3 w/ext PT-OP-L Special Tests Start: 12/23/18 11:09 Freq: Status: Active Protocol: Document 12/24/18 14:37 [facility] (Rec: 12/24/18 15:20 [facility] [id number]) Special Tests Cervical Spine Special Tests Vertebrobasilar Test Results neg Alar Ligament Test Results neg Spurling's Test Test Results neg Lumbar Spine Special Tests Slump Test Results neg Mark Test Results tight iliopsoas & RF B Straight Leg Raise Test Results neg PT-OP-M Strength Start: 12/23/18 11:09 Freq: Status: Active Protocol: Document 12/24/18 14:37 [facility] (Rec: 12/24/18 15:20 [facility] [id number]) Shoulder Strength Shoulder Manual Muscle Testing Left Flexion 4+ Good+ Extension 4 Good Abduction (C5) 4+ Good+ External Rotation 4- Good- Internal Rotation 4 Good Right External Rotation 4- Good- Internal Rotation 4 Good Hip Strength Hip Manual Muscle Testing Left Flexion (L2) 4+ Good+ Extension (S1) 3+ Fair+ Abduction 3 Fair Adduction 5 Normal External Rotation 4 Good Internal Rotation 4 Good Right Flexion (L2) 4 Good Extension (S1) 3+ Fair+ Abduction 3 Fair Adduction 4- Good- External Rotation 4- Good- Internal Rotation 4 Good Knee Strength Knee Manual Muscle Testing Left Flexion (S2) 5 Normal Extension (L3) 5 Normal Right Flexion (S2) 5 Normal Extension (L3) 5 Normal Ankle/Foot Strength Ankle and Foot Manual Muscle Testing Right Dorsiflexion (L4) 5 Normal Plantarflexion (S1) 4 Good Left Dorsiflexion (L4) 5 Normal Plantarflexion (S1) 4+ Good+ Comments pain in buttocks w/heel raises PT-OP-Q Treatments Start: 12/23/18 11:09 Freq: Status: Active Protocol: Document 02/06/19 11:45 [facility] (Rec: 02/06/19 12:03 [facility] [email or web address]) Therapeutic Exercises Prone Exercises wagging tail Prone Exercise Name L/S sidebending in quadruped Side bilateral Reps/Minutes 10x5 sec holds Comments ceuing for pelvic motion Cat/Camel Prone Exercise Name cat/camel Reps/Minutes 5x10 sec hold Comments cueing for pelvic motion and T /S ext Sitting Exercises lateral sidebending Sitting Exercise Name seated lateral sidebending, upper arm into abd Side bilateral Equipment Used block/mat under pelvis Reps/Minutes 2 reps, 30 sec holds Comments pt cued for upright postur stretches Sitting Exercise Name Spinal twist Side bilateral Equipment Used block/mat under pelvis Reps/Minutes 2 reps, 30 sec holds Comments pt cued for upright posture and neck rotation at end range Standing Exercises lunges Standing Exercise Name lunges Side bilateral Equipment Used counter top for support Reps/Minutes 10 reps each side Comments used for education/ strengthening for floor transfers squat Standing Exercise Name mini squat w chair Side bilateral Reps/Minutes 15 ea Comments mod cueing for hip hinge Manual Therapy Treatment Soft Tissue Mobilization 1 Body Location UT Body Position seated Comments margarita used. with chin tucks, lev scap stretch Joint Mobilizations thoracic Joint C7-T3 Direction rotation Grade IV Body Position seated Reps/Duration 15 reps each joint, bilateral Comments 90 deg shoulder abd and contractions into adduction PT-OP-R Modalities Start: 12/23/18 11:09 Freq: Status: Active Protocol: Document 12/26/18 10:20 [facility] (Rec: 12/26/18 12:02 [facility] [id number]) Hot Pack/Cold Pack Treatment Hot Pack Location lumbar & cervical Patient Position Hooklying Treatment Duration (minutes) 15 PT-OP-T Assessment and Plan Start: 12/23/18 11:09 Freq: Status: Active Protocol: Document 02/06/19 11:45 [facility] (Rec: 02/06/19 12:03 [facility] [id number]) Physical Therapy Assessment Goals activity Short Term Goal (STG) Pt will be able to attend a yoga class without inc pain. STG Duration 01/23/19 Fpc Goal (LTG) Pt will be able to get up/down from the ground without reported difficulty. LTG Duration 02/23/19 ROM In Flight Refueling Operator Goal (LTG) Pt will have full neck ROM allowing her to drive without difficutly. LTG Duration 02/23/19 strength Short Term Goal (STG) Pt will be indep with HEP. STG Duration 01/23/19 In Flight Refueling Operator Goal (LTG) Pt will have 5/5 LE, UE strength, LPM, EFT & VCT to show improved core stability, postural alignment and allow her to do her recreational and daily activities without pain . LTG Duration 02/23/19 Assessment Summary Assessment Pt was instructed through basic yoga postures with cueing and suggestions for props and modifications she can make during classes. Pt educated on safety descending to floor and was given strengthing exercises to improve descent. Pt responded well to manual therapy and was able to achieve more cervical rotation after joint mobs. Physical Therapy Plan Frequency and Duration Frequency of Treatment 2x/Week Duration of Treatment 2 months Plan of Care Start Date 12/24/18 Plan of Care End Date 02/23/19 Next Visit Focus/Plan Next Note Type Treatment Note Next Visit Plan review yoga poses, progress squatting and lunges as appropriate
--- NOTE | 2019-02-10 18:37 | PT.OTN ---
Current Diagnoses Pain in right knee (02/10/19) Pain in left knee (02/10/19) Cervicalgia (02/10/19) Low back pain (02/10/19) Abnormal posture (02/10/19) Weakness (02/10/19) Physical Therapy Treatment Note PT-OP-A Visit Information Start: 12/23/18 11:09 Freq: Status: Active Protocol: Document 02/10/19 15:07 AR (Rec: 02/10/19 15:14 AR [id number]) Out-Patient Physical Therapy Visit Information Visit Information Visit Type Treatment Note Visit Start Time 10:33 Visit Stop Time 11:15 Total Visit Minutes 42 Visit Number 9 Number of PUTTY GLAZER Visits 0 PT-OP-B Current Condition Start: 12/23/18 11:09 Freq: Status: Active Protocol: Document 12/24/18 14:37 LR (Rec: 12/24/18 15:20 [facility] [id number]) Current Condition History of Current Condition Current Complaints LBP, neck pain, B knees History of Current Condition Pt reports about 2 months ago she was moving and was moving a box and her back started hurting. REports she has learned to compensate for it but she has difficulty with ADLs like bending over to put on socks. Pt reports d/t neck pain she has difficulty with turning her neck when driving. Pt reprots getting out of bed has been difficult on her back. Pt has been working on losing weight and has lost 35 lbs so far. She goes for a 45 min walk every morning and wants to start yoga class but is scared d/t back, neck and knee pain. She cannot kneel d/ t knee pain. Pt has history of knee pain B for 10 years. Pt reports neck doesn't hurt as much but is really stiff. Pt reports she has reduced kidney function (50 GFR), which limits her ability to take pain killers. Prior Treatments and Tests Xrays showing mild degeneragtion Treatment Goals Patient/Caregiver Goals Learn how to hold her body, strengthen back and knees to be able to go to yoga class PT-OP-C Subjective Start: 12/23/18 11:09 Freq: Status: Active Protocol: Document 02/10/19 15:07 AR (Rec: 02/10/19 15:14 AR [id number]) OP-PT Subjective Patient Comments Patient Comments Pt wanted to review HEP, as she was confused about multiple exercises and had knee pain with lunges. Pt reported a pinching sensation in R anterior hip in sitting cross legged. Pt reported she felt great after manual therapy for her neck last week . PT-OP-F Manual Assessment Start: 12/23/18 11:09 Freq: Status: Active Protocol: Document 12/24/18 14:37 [facility] (Rec: 12/24/18 15:20 [facility] [id number]) Manual Assessments Joint Mobility Assessment Joint Mobility Assessment R ant elevated innominate PT-OP-G Mobility & Gait Start: 12/23/18 11:09 Freq: Status: Active Protocol: Document 12/24/18 14:37 [facility] (Rec: 12/24/18 18:20 [facility] [id number]) OP Gait Assessment Comments Gait Comments Pt is primarily a leg walker with some transverse plane rotation but no appropriate pelvic patterns. PT-OP-J Posture/Palpation/Skin Start: 12/23/18 11:09 Freq: Status: Active Protocol: Document 12/24/18 14:37 [facility] (Rec: 12/24/18 15:20 [facility] [id number]) Posture Evaluation Aquiles Postural Classification System Aquiles Postural Classifications Anterior/Posterior Vertebral Compression Test 0 Elbow Flexion Test 1 Lumbar Protective Mechanism Left AP 1 Lumbar Protective Mechanism Right AP 0 Lumbar Protective Mechanism Left PA 0 Lumbar Protective Mechanism Right PA 1 Leg Swing Left Hard End Feel PT-OP-K Range of Motion Start: 12/23/18 11:09 Freq: Status: Active Protocol: Document 12/24/18 14:37 [facility] (Rec: 12/24/18 15:20 [facility] [id number]) Cervical Spine Range of Motion Cervical Spine Active Degrees Testing Position Sitting Flexion 34 Extension 35 Rotation Left 28 Rotation Right 22 Lateral Flexion Left 5 Lateral Flexion Right 21 Lumbar Spine Range of Motion Lumbar Spine Active Degrees Flexion 50 Extension 25 Rotation Left 36 Rotation Right 34 Lateral Flexion Left 19 Lateral Flexion Right 21 Comments hinge at L3 w/ext PT-OP-L Special Tests Start: 12/23/18 11:09 Freq: Status: Active Protocol: Document 12/24/18 14:37 [facility] (Rec: 12/24/18 15:20 [facility] [id number]) Special Tests Cervical Spine Special Tests Vertebrobasilar Test Results neg Alar Ligament Test Results neg Spurling's Test Test Results neg Lumbar Spine Special Tests Slump Test Results neg Mark Test Results tight iliopsoas & RF B Straight Leg Raise Test Results neg PT-OP-M Strength Start: 12/23/18 11:09 Freq: Status: Active Protocol: Document 12/24/18 14:37 LR (Rec: 12/24/18 15:20 [facility] [id number]) Shoulder Strength Shoulder Manual Muscle Testing Left Flexion 4+ Good+ Extension 4 Good Abduction (C5) 4+ Good+ External Rotation 4- Good- Internal Rotation 4 Good Right External Rotation 4- Good- Internal Rotation 4 Good Hip Strength Hip Manual Muscle Testing Left Flexion (L2) 4+ Good+ Extension (S1) 3+ Fair+ Abduction 3 Fair Adduction 5 Normal External Rotation 4 Good Internal Rotation 4 Good Right Flexion (L2) 4 Good Extension (S1) 3+ Fair+ Abduction 3 Fair Adduction 4- Good- External Rotation 4- Good- Internal Rotation 4 Good Knee Strength Knee Manual Muscle Testing Left Flexion (S2) 5 Normal Extension (L3) 5 Normal Right Flexion (S2) 5 Normal Extension (L3) 5 Normal Ankle/Foot Strength Ankle and Foot Manual Muscle Testing Right Dorsiflexion (L4) 5 Normal Plantarflexion (S1) 4 Good Left Dorsiflexion (L4) 5 Normal Plantarflexion (S1) 4+ Good+ Comments pain in buttocks w/heel raises PT-OP-Q Treatments Start: 12/23/18 11:09 Freq: Status: Active Protocol: Document 02/10/19 15:07 AR (Rec: 02/10/19 15:14 AR [id number]) Therapeutic Exercises Supine Exercises figure 4 Supine Exercise Name figure 4 stretch Side right Reps/Minutes 3x30 sec holds Comments began in JOSÉ ANTONIO position, as pinching felt with figure 4 Prone Exercises wagging tail Prone Exercise Name L/S sidebending in quadruped Side bilateral Reps/Minutes 10x5 sec holds Comments pt was cued to not stretch into pain Sitting Exercises lateral sidebending Sitting Exercise Name seated lateral sidebending, upper arm into abd Side bilateral Reps/Minutes 2 reps, 30 sec holds Comments pinching in R anterior hip stretches Sitting Exercise Name Spinal twist Side bilateral Reps/Minutes 2 reps, 30 sec holds Comments pinching in R anterior hip Standing Exercises lunges Standing Exercise Name lunges Side bilateral Equipment Used counter top for support Reps/Minutes 10 reps each side Comments used for education/ strengthening for floor transfers squat Standing Exercise Name mini squat w chair Side bilateral Reps/Minutes 20 reps Comments clarification on hip hinge and knee flexion form Manual Therapy Treatment Joint Mobilizations SI Joint sacroiliac Direction AP of inominate Grade IV Body Position Supine Comments with hip flex. sacral block used hip Joint hip Direction inferior, ant Grade IV Body Position Supine Comments PROM into ER limited, improved with mobilization. pinching sensation slightly decreased Self-Care/Home Management Treatment Education Patient Education Posture Other Education reading supine in bed. pillow under elbows to dec C/S and shoulder muscular activation PT-OP-R Modalities Start: 12/23/18 11:09 Freq: Status: Active Protocol: Document 12/26/18 10:20 [facility] (Rec: 12/26/18 12:02 [facility] [id number]) Hot Pack/Cold Pack Treatment Hot Pack Location lumbar & cervical Patient Position Hooklying Treatment Duration (minutes) 15 PT-OP-T Assessment and Plan Start: 12/23/18 11:09 Freq: Status: Active Protocol: Document 02/10/19 15:07 AR (Rec: 02/10/19 15:14 AR [email or web address]) Physical Therapy Assessment Goals activity Short Term Goal (STG) Pt will be able to attend a yoga class without inc pain. STG Duration 01/23/19 Customer Servicer Goal (LTG) Pt will be able to get up/down from the ground without reported difficulty. LTG Duration 02/23/19 ROM Customer Servicer Goal (LTG) Pt will have full neck ROM allowing her to drive without difficutly. LTG Duration 02/23/19 strength Short Term Goal (STG) Pt will be indep with HEP. STG Duration 01/23/19 Assisted Goal (LTG) Pt will have 5/5 LE, UE strength, LPM, EFT & VCT to show improved core stability, postural alignment and allow her to do her recreational and daily activities without pain . LTG Duration 02/23/19 Assessment Summary Assessment Pt's s/s with sitting crossed legged are consistent with impingement and improved slightly with manual therapy. Pain with lunges resolved when pt dec ROM of exercise. Pt's concerns of walking with bad posture will be addressed next visit with cueing for proper weight acceptance into LE. Pt was educated on reading posture in bed, as she was concerned about possible injurious positions or activities. Physical Therapy Plan Frequency and Duration Frequency of Treatment 2x/Week Duration of Treatment 2 months Plan of Care Start Date 12/24/18 Plan of Care End Date 02/23/19 Next Visit Focus/Plan Next Note Type Treatment Note Next Visit Plan gait training, weight acceptance, resisted walking
--- NOTE | 2019-03-12 16:07 | PT.OPPOC ---
Current Diagnoses Pain in right knee (03/12/19) Pain in left knee (03/12/19) Cervicalgia (03/12/19) Low back pain (03/12/19) Abnormal posture (03/12/19) Weakness (03/12/19) Visit Care Team Role Provider Type Camila Ware DO Attending Provider Physician Primary Care Provider Specialty: [facility] Address: [address] [place] [address], [address], [facility] Email: [email or web address] Plan Of Care PT-OP-T Assessment and Plan Start: 12/23/18 11:09 Freq: Status: Active Protocol: Document 03/12/19 14:30 AR (Rec: 03/12/19 18:38 AR [id number]) Physical Therapy Assessment Goals activity Short Term Goal (STG) Pt will be able to attend a yoga class without inc pain. 03/12/19: pt has been unable to attend d/t recent of father and being out of town STG Duration 03/12/19 Custodial Goal (LTG) Pt will be able to get up/down from the ground without reported difficulty. 03/12/19: progressing. able to get up easily with use of external support. slight dec stability w/o external support LTG Duration 04/23/19 ROM Custodial Goal (LTG) Pt will have full neck ROM allowing her to drive without difficutly. 03/12/19: ROM has nearly doubled in all planes, but pt is still limited in rotation bilaterally LTG Duration 04/23/19 strength Short Term Goal (STG) Pt will be indep with HEP. STG Duration goal met Growth Media Mixer Mushroom Goal (LTG) Pt will have 5/5 LE, UE strength, LPM, EFT & VCT to show improved core stability, postural alignment and allow her to do her recreational and daily activities without pain . 03/12/19: strength and postural improvements with all tests, but pt still has dec postural activations in some positions LTG Duration 04/23/19 Assessment Summary Assessment Pt's strength and postural activation have improved in nearly all testing. Pt still has dec strength in hip, which may be contributing to pelvic instability during gait. Pt has also shown an inc in cervical ROM, but pt is still lacking ~20 deg of rotation to be able to drive functionally . She has also had improvements in functional activities and is able to get up and down from the ground with minimal difficulty. Pt was encouraged to get a referral for her knee pain so PT can address them specifically, as they are still limiting some of her function. PT to continue to focus on increasing strength of LE and addressing restrictions in cervical spine to improve ROM to help pt be able to participate in all functional and recreational activities. Physical Therapy Plan Frequency and Duration Frequency of Treatment 1-2x/wk Duration of Treatment 6 weeks Plan of Care Start Date 03/12/19 Plan of Care End Date 04/23/19 Therapeutic Interventions Therapeutic Interventions Aquatic Therapy,Balance Training,Gait Training,Home Exercise Program,Joint Mobilizations,Manual Therapy, Neuromuscular Re-education, Patient/Caregiver Education, Self-Care/Home Management,Soft Tissue Mobilization,Taping, Therapeutic Activities, Therapeutic Exercises Modalities Cold Pack/Ice Massage,Electric Stimulation,Hot Packs Next Visit Focus/Plan Next Note Type Treatment Note Next Visit Plan hip strengthening (sidelying SLR, lateral stepping in squat , clams). manual therapy for cervical limitations Plan of Care Dates Plan of Care Start Date 03/12/19 Plan of Care End Date 04/23/19 Please Sign and Return: I have reviewed this Plan of Care and certify that the skilled therapy services above are required to meet the patient?s needs. Physician Signature Date Printed Name and Credentials Clinical Instructor Signature Printed Name and Credentials
--- NOTE | 2019-03-12 19:18 | PT.OTN ---
Current Diagnoses Pain in right knee (03/12/19) Pain in left knee (03/12/19) Cervicalgia (03/12/19) Low back pain (03/12/19) Abnormal posture (03/12/19) Weakness (03/12/19) Physical Therapy Treatment Note PT-OP-A Visit Information Start: 12/23/18 11:09 Freq: Status: Active Protocol: Document 03/12/19 14:30 AR (Rec: 03/12/19 18:38 AR [id number]) Out-Patient Physical Therapy Visit Information Visit Information Visit Type Treatment Note Visit Start Time 14:30 Visit Stop Time 15:15 Total Visit Minutes 45 Visit Number 10 Number of PLANNING ANALYST Visits 0 PT-OP-B Current Condition Start: 12/23/18 11:09 Freq: Status: Active Protocol: Document 12/24/18 14:37 LR (Rec: 12/24/18 15:20 [facility] [id number]) Current Condition History of Current Condition Current Complaints LBP, neck pain, B knees History of Current Condition Pt reports about 2 months ago she was moving and was moving a box and her back started hurting. REports she has learned to compensate for it but she has difficulty with ADLs like bending over to put on socks. Pt reports d/t neck pain she has difficulty with turning her neck when driving. Pt reprots getting out of bed has been difficult on her back. Pt has been working on losing weight and has lost 35 lbs so far. She goes for a 45 min walk every morning and wants to start yoga class but is scared d/t back, neck and knee pain. She cannot kneel d/ t knee pain. Pt has history of knee pain B for 10 years. Pt reports neck doesn't hurt as much but is really stiff. Pt reports she has reduced kidney function (50 GFR), which limits her ability to take pain killers. Prior Treatments and Tests Xrays showing mild degeneragtion Treatment Goals Patient/Caregiver Goals Learn how to hold her body, strengthen back and knees to be able to go to yoga class PT-OP-C Subjective Start: 12/23/18 11:09 Freq: Status: Active Protocol: Document 03/12/19 14:30 AR (Rec: 03/12/19 18:38 AR [id number]) OP-PT Subjective Patient Comments Patient Comments Pt has not been able to make it to therapy for a few weeks d/t her father passing. She reports that she has had almost no back or neck pain recently but still has stiffness/tightness in her neck. Her knees have still been bothering her. PT-OP-F Manual Assessment Start: 12/23/18 11:09 Freq: Status: Active Protocol: Document 12/24/18 14:37 LR (Rec: 12/24/18 15:20 [facility] [id number]) Manual Assessments Joint Mobility Assessment Joint Mobility Assessment R ant elevated innominate PT-OP-G Mobility & Gait Start: 12/23/18 11:09 Freq: Status: Active Protocol: Document 12/24/18 14:37 [facility] (Rec: 12/24/18 18:20 [facility] [id number]) OP Gait Assessment Comments Gait Comments Pt is primarily a leg walker with some transverse plane rotation but no appropriate pelvic patterns. PT-OP-J Posture/Palpation/Skin Start: 12/23/18 11:09 Freq: Status: Active Protocol: Document 03/12/19 14:30 [facility] (Rec: 03/12/19 14:47 [facility] [id number]) Posture Evaluation Aquiles Postural Classification System Elbow Flexion Test 3 Lumbar Protective Mechanism Left AP 2 Lumbar Protective Mechanism Right AP 2 Lumbar Protective Mechanism Left PA 1 Lumbar Protective Mechanism Right PA 1 PT-OP-K Range of Motion Start: 12/23/18 11:09 Freq: Status: Active Protocol: Document 03/12/19 14:30 [facility] (Rec: 03/12/19 14:53 [facility] [id number]) Cervical Spine Range of Motion Cervical Spine Active Degrees Testing Position Sitting Flexion 45 Extension 45 Rotation Left 48 Rotation Right 42 Lateral Flexion Left 20 Lateral Flexion Right 22 PT-OP-L Special Tests Start: 12/23/18 11:09 Freq: Status: Active Protocol: Document 12/24/18 14:37 LR (Rec: 12/24/18 15:20 [facility] [id number]) Special Tests Cervical Spine Special Tests Vertebrobasilar Test Results neg Alar Ligament Test Results neg Spurling's Test Test Results neg Lumbar Spine Special Tests Slump Test Results neg Mark Test Results tight iliopsoas & RF B Straight Leg Raise Test Results neg PT-OP-M Strength Start: 12/23/18 11:09 Freq: Status: Active Protocol: Document 03/12/19 14:30 [facility] (Rec: 03/12/19 14:47 [facility] [id number]) Hip Strength Hip Manual Muscle Testing Left Flexion (L2) 4 Good Extension (S1) 4- Good- Abduction 4- Good- Adduction 5 Normal External Rotation 4+ Good+ Internal Rotation 4+ Good+ Right Flexion (L2) 4+ Good+ Extension (S1) 4 Good Abduction 4 Good Adduction 5 Normal External Rotation 4+ Good+ Internal Rotation 4+ Good+ Knee Strength Knee Manual Muscle Testing Left Extension (L3) 5 Normal Right Extension (L3) 5 Normal Ankle/Foot Strength Ankle and Foot Manual Muscle Testing Right Plantarflexion (S1) 5 Normal Left Plantarflexion (S1) 5 Normal PT-OP-Q Treatments Start: 12/23/18 11:09 Freq: Status: Active Protocol: Document 03/12/19 14:30 AR (Rec: 03/12/19 18:38 AR [id number]) Therapeutic Activity Therapeutic Activity wt acceptance Name standing weight acceptance Reps/Minutes 10 min Comments at mirror, with and without resistance (red sport cord). dec lateral trunk lean, pelvic rotation Gait Training Gait Activity gait Description in mirror, cueing for pelvic stability.w & w/o resistance ( red sport cord) Device Used none Level of Assistance I Surface level Distance/Duration 10 min Treatment Focus dec lateral trunk lean, pelvic rotation Comments pt stated she became aware of her lateral trunk lean and will work on incoporating gait w/o deviations into trail walking near home. pt was more challenged by resisted gait Manual Therapy Treatment Soft Tissue Mobilization SOR Body Location suboccipitals Mobilization Type Sustained Pressure Intensity/Depth Moderate Body Position Supine Comments with chin tucks and small cervical rotation motion Manual Techniques UT stretch Type stretch with STM at proximal UT Body Location UT Body Position Supine Reps/Duration 2 min hold ea side Comments pt reported her neck felt less stiff after PT-OP-R Modalities Start: 12/23/18 11:09 Freq: Status: Active Protocol: Document 12/26/18 10:20 [facility] (Rec: 12/26/18 12:02 [facility] [id number]) Hot Pack/Cold Pack Treatment Hot Pack Location lumbar & cervical Patient Position Hooklying Treatment Duration (minutes) 15 PT-OP-T Assessment and Plan Start: 12/23/18 11:09 Freq: Status: Active Protocol: Document 03/12/19 14:30 AR (Rec: 03/12/19 18:38 AR [id number]) Physical Therapy Assessment Goals activity Short Term Goal (STG) Pt will be able to attend a yoga class without inc pain. 03/12/19: pt has been unable to attend d/t recent of father and being out of town STG Duration 03/12/19 Intermediate Goal (LTG) Pt will be able to get up/down from the ground without reported difficulty. 03/12/19: progressing. able to get up easily with use of external support. slight dec stability w/o external support LTG Duration 04/23/19 ROM Water Pollution Control Technician Goal (LTG) Pt will have full neck ROM allowing her to drive without difficutly. 03/12/19: ROM has nearly doubled in all planes, but pt is still limited in rotation bilaterally LTG Duration 04/23/19 strength Short Term Goal (STG) Pt will be indep with HEP. STG Duration goal met Water Pollution Control Technician Goal (LTG) Pt will have 5/5 LE, UE strength, LPM, EFT & VCT to show improved core stability, postural alignment and allow her to do her recreational and daily activities without pain . 03/12/19: strength and postural improvements with all tests, but pt still has dec postural activations in some positions LTG Duration 04/23/19 Assessment Summary Assessment Pt's strength and postural activation have improved in nearly all testing. Pt still has dec strength in hip, which may be contributing to pelvic instability during gait. Pt has also shown an inc in cervical ROM, but pt is still lacking ~20 deg of rotation to be able to drive functionally . She has also had improvements in functional activities and is able to get up and down from the ground with minimal difficulty. Pt was encouraged to get a referral for her knee pain so PT can address them specifically, as they are still limiting some of her function. PT to continue to focus on increasing strength of LE and addressing restrictions in cervical spine to improve ROM to help pt be able to participate in all functional and recreational activities. Physical Therapy Plan Frequency and Duration Frequency of Treatment 1-2x/wk Duration of Treatment 6 weeks Plan of Care Start Date 03/12/19 Plan of Care End Date 04/23/19 Therapeutic Interventions Therapeutic Interventions Aquatic Therapy,Balance Training,Gait Training,Home Exercise Program,Joint Mobilizations,Manual Therapy, Neuromuscular Re-education, Patient/Caregiver Education, Self-Care/Home Management,Soft Tissue Mobilization,Taping, Therapeutic Activities, Therapeutic Exercises Modalities Cold Pack/Ice Massage,Electric Stimulation,Hot Packs Next Visit Focus/Plan Next Note Type Treatment Note Next Visit Plan hip strengthening (sidelying SLR, lateral stepping in squat , clams). manual therapy for cervical limitations
--- NOTE | 2019-03-17 18:08 | PT.OTN ---
Current Diagnoses Pain in right knee (03/17/19) Pain in left knee (03/17/19) Cervicalgia (03/17/19) Low back pain (03/17/19) Abnormal posture (03/17/19) Weakness (03/17/19) Physical Therapy Treatment Note PT-OP-A Visit Information Start: 12/23/18 11:09 Freq: Status: Active Protocol: Document 03/17/19 13:45 AR (Rec: 03/17/19 16:05 AR [email or web address]) Out-Patient Physical Therapy Visit Information Visit Information Visit Type Treatment Note Visit Start Time 13:50 Visit Stop Time 14:30 Total Visit Minutes 40 Visit Number 11 Number of MIXING MACHINE TENDER CORK ROD Visits 0 PT-OP-B Current Condition Start: 12/23/18 11:09 Freq: Status: Active Protocol: Document 12/24/18 14:37 [facility] (Rec: 12/24/18 15:20 [facility] [id number]) Current Condition History of Current Condition Current Complaints LBP, neck pain, B knees History of Current Condition Pt reports about 2 months ago she was moving and was moving a box and her back started hurting. REports she has learned to compensate for it but she has difficulty with ADLs like bending over to put on socks. Pt reports d/t neck pain she has difficulty with turning her neck when driving. Pt reprots getting out of bed has been difficult on her back. Pt has been working on losing weight and has lost 35 lbs so far. She goes for a 45 min walk every morning and wants to start yoga class but is scared d/t back, neck and knee pain. She cannot kneel d/ t knee pain. Pt has history of knee pain B for 10 years. Pt reports neck doesn't hurt as much but is really stiff. Pt reports she has reduced kidney function (50 GFR), which limits her ability to take pain killers. Prior Treatments and Tests Xrays showing mild degeneragtion Treatment Goals Patient/Caregiver Goals Learn how to hold her body, strengthen back and knees to be able to go to yoga class PT-OP-C Subjective Start: 12/23/18 11:09 Freq: Status: Active Protocol: Document 03/17/19 13:45 AR (Rec: 03/17/19 16:05 AR [email or web address]) OP-PT Subjective Patient Comments Patient Comments Pt reports she has been feeling well, but her neck is still stiff at end ranges of motion. She has been performing her exercises, but seemed concerned about regaining all her neck motion. PT-OP-F Manual Assessment Start: 12/23/18 11:09 Freq: Status: Active Protocol: Document 12/24/18 14:37 [facility] (Rec: 12/24/18 15:20 [facility] [id number]) Manual Assessments Joint Mobility Assessment Joint Mobility Assessment R ant elevated innominate PT-OP-G Mobility & Gait Start: 12/23/18 11:09 Freq: Status: Active Protocol: Document 12/24/18 14:37 [facility] (Rec: 12/24/18 18:20 [facility] [email or web address]) OP Gait Assessment Comments Gait Comments Pt is primarily a leg walker with some transverse plane rotation but no appropriate pelvic patterns. PT-OP-J Posture/Palpation/Skin Start: 12/23/18 11:09 Freq: Status: Active Protocol: Document 03/12/19 14:30 [facility] (Rec: 03/12/19 14:47 [facility] [id number]) Posture Evaluation [facility] Postural Classification System Elbow Flexion Test 3 Lumbar Protective Mechanism Left AP 2 Lumbar Protective Mechanism Right AP 2 Lumbar Protective Mechanism Left PA 1 Lumbar Protective Mechanism Right PA 1 PT-OP-K Range of Motion Start: 12/23/18 11:09 Freq: Status: Active Protocol: Document 03/12/19 14:30 [facility] (Rec: 03/12/19 14:53 [facility] [id number]) Cervical Spine Range of Motion Cervical Spine Active Degrees Testing Position Sitting Flexion 45 Extension 45 Rotation Left 48 Rotation Right 42 Lateral Flexion Left 20 Lateral Flexion Right 22 PT-OP-L Special Tests Start: 12/23/18 11:09 Freq: Status: Active Protocol: Document 12/24/18 14:37 [facility] (Rec: 12/24/18 15:20 [facility] [id number]) Special Tests Cervical Spine Special Tests Vertebrobasilar Test Results neg Alar Ligament Test Results neg Spurling's Test Test Results neg Lumbar Spine Special Tests Slump Test Results neg Mark Test Results tight iliopsoas & RF B Straight Leg Raise Test Results neg PT-OP-M Strength Start: 12/23/18 11:09 Freq: Status: Active Protocol: Document 03/12/19 14:30 [facility] (Rec: 03/12/19 14:47 [facility] [id number]) Hip Strength Hip Manual Muscle Testing Left Flexion (L2) 4 Good Extension (S1) 4- Good- Abduction 4- Good- Adduction 5 Normal External Rotation 4+ Good+ Internal Rotation 4+ Good+ Right Flexion (L2) 4+ Good+ Extension (S1) 4 Good Abduction 4 Good Adduction 5 Normal External Rotation 4+ Good+ Internal Rotation 4+ Good+ Knee Strength Knee Manual Muscle Testing Left Extension (L3) 5 Normal Right Extension (L3) 5 Normal Ankle/Foot Strength Ankle and Foot Manual Muscle Testing Right Plantarflexion (S1) 5 Normal Left Plantarflexion (S1) 5 Normal PT-OP-Q Treatments Start: 12/23/18 11:09 Freq: Status: Active Protocol: Document 03/17/19 13:45 AR (Rec: 03/17/19 16:05 AR [email or web address]) Therapeutic Exercises Supine Exercises figure 4 Supine Exercise Name figure 4 stretch Side right Reps/Minutes 3x30 sec holds Comments in seated. added to HEP bridge Supine Exercise Name bridge with one LE extended Side bilateral Reps/Minutes 10 reps Comments reviewed from HEP. pt was performing bridge with figure 4 stretch combined Sidelying Exercises clamshells Sidelying Exercise Name clamshells Side bilateral Reps/Minutes 10 ea Comments added to HEP hip abd Sidelying Exercise Name sidelying SLR Side bilateral Reps/Minutes 10 ea Comments added to HEP Standing Exercises squat with lateral stepping Standing Exercise Name mini squat with lateral stepping Side bilateral Resistance yellow Equipment Used theraband loop Reps/Minutes 4x10 feet Comments pt cued for hip hinge Manual Therapy Treatment Soft Tissue Mobilization SOR Body Location suboccipitals Mobilization Type Sustained Pressure Intensity/Depth Moderate Body Position Supine Joint Mobilizations CT junction Joint CT junction Direction rotation Grade III Body Position Sitting cervical Joint C1-C3 Direction rotation Grade III Body Position Supine PT-OP-R Modalities Start: 12/23/18 11:09 Freq: Status: Active Protocol: Document 12/26/18 10:20 [facility] (Rec: 12/26/18 12:02 [facility] [id number]) Hot Pack/Cold Pack Treatment Hot Pack Location lumbar & cervical Patient Position Hooklying Treatment Duration (minutes) 15 PT-OP-T Assessment and Plan Start: 12/23/18 11:09 Freq: Status: Active Protocol: Document 03/17/19 13:45 AR (Rec: 03/17/19 16:05 AR [email or web address]) Physical Therapy Assessment Goals activity Short Term Goal (STG) Pt will be able to attend a yoga class without inc pain. 03/12/19: pt has been unable to attend d/t recent of father and being out of town STG Duration 03/12/19 [facility] Goal (LTG) Pt will be able to get up/down from the ground without reported difficulty. 03/12/19: progressing. able to get up easily with use of external support. slight dec stability w/o external support LTG Duration 04/23/19 ROM Code Clerk Goal (LTG) Pt will have full neck ROM allowing her to drive without difficutly. 03/12/19: ROM has nearly doubled in all planes, but pt is still limited in rotation bilaterally LTG Duration 04/23/19 strength Short Term Goal (STG) Pt will be indep with HEP. STG Duration goal met [facility] Goal (LTG) Pt will have 5/5 LE, UE strength, LPM, EFT & VCT to show improved core stability, postural alignment and allow her to do her recreational and daily activities without pain . 03/12/19: strength and postural improvements with all tests, but pt still has dec postural activations in some positions LTG Duration 04/23/19 Assessment Summary Assessment Pt was educated on importance of hip stability during amb and strengthening exercises performed today to target those muscles. Pt was able to demonstrate proper form during all hip strengthening exercises, but was confused about bridge and figure 4 stretch at home. Exercises were reviewed and form was clarified. Pt was assured that neck range of motion should improve with compliance to her HEP as well as manual therapy during sessions. Physical Therapy Plan Frequency and Duration Frequency of Treatment 1-2x/wk Duration of Treatment 6 weeks Plan of Care Start Date 03/12/19 Plan of Care End Date 04/23/19 Next Visit Focus/Plan Next Note Type Treatment Note Next Visit Plan progress standing hip strength (ext, abd w resistance, lunges). T/S mobility exercises to improve neck ROM
--- NOTE | 2019-03-20 17:41 | PT.OTRE ---
Current Diagnoses Pain in right knee (03/20/19) Pain in left knee (03/20/19) Cervicalgia (03/20/19) Low back pain (03/20/19) Abnormal posture (03/20/19) Weakness (03/20/19) Past Medical History (Last Reviewed 08/07/18 @ 12:40 by Camila Ware DO) Anemia (Chronic) Breast cancer (Chronic ~05/2014) Chicken pox (Resolved) Colon polyps (Chronic ~2015) Diverticular disease (Chronic ~2015) Eczema (Chronic) Endometriosis (Chronic) Foot pain (Chronic ~2017) Heart murmur (Chronic) Heavy menstrual period (Chronic) Hemorrhoid (Chronic) Hypertension (Chronic) Hyperthyroidism (Chronic) Hypothyroidism (Chronic) Kidney failure (Chronic) Osteoarthritis (Chronic) Psoriasis (Chronic) Rheumatoid arthritis (Chronic) Seasonal allergies (Chronic) Sleep apnea (Chronic) Tinnitus (Chronic) Vision disorder (Chronic) Surgical History (Last Reviewed 08/07/18 @ 12:40 by Camila Ware DO) Anesthesia (Resolved) History of skin graft (Resolved ~2012) History of surgery on arm (Resolved ~2012) History of tonsillectomy (Resolved ~1983) Visit Care Team Role Provider Type Camila Ware DO Attending Provider Physician Primary Care Provider Specialty: [facility] Address: [address] [place] [address], [address], [facility] Email: [email or web address] Physical Therapy Re-Evaluation PT-OP-A Visit Information Start: 12/23/18 11:09 Freq: Status: Active Protocol: Document 03/20/19 15:15 AR (Rec: 03/20/19 16:32 AR [email or web address]) Out-Patient Physical Therapy Visit Information Visit Information Visit Type Treatment Note Visit Start Time 15:15 Visit Stop Time 16:00 Total Visit Minutes 45 Visit Number 12 Number of SEGMENTAL WALL INSTALLER Visits 0 PT-OP-B Current Condition Start: 12/23/18 11:09 Freq: Status: Active Protocol: Document 12/24/18 14:37 [facility] (Rec: 12/24/18 15:20 [facility] [id number]) Current Condition History of Current Condition Current Complaints LBP, neck pain, B knees History of Current Condition Pt reports about 2 months ago she was moving and was moving a box and her back started hurting. REports she has learned to compensate for it but she has difficulty with ADLs like bending over to put on socks. Pt reports d/t neck pain she has difficulty with turning her neck when driving. Pt reprots getting out of bed has been difficult on her back. Pt has been working on losing weight and has lost 35 lbs so far. She goes for a 45 min walk every morning and wants to start yoga class but is scared d/t back, neck and knee pain. She cannot kneel d/ t knee pain. Pt has history of knee pain B for 10 years. Pt reports neck doesn't hurt as much but is really stiff. Pt reports she has reduced kidney function (50 GFR), which limits her ability to take pain killers. Prior Treatments and Tests Xrays showing mild degeneragtion Treatment Goals Patient/Caregiver Goals Learn how to hold her body, strengthen back and knees to be able to go to yoga class PT-OP-C Subjective Start: 12/23/18 11:09 Freq: Status: Active Protocol: Document 03/20/19 15:15 AR (Rec: 03/20/19 16:37 AR [email or web address]) OP-PT Subjective Patient Comments Patient Comments Pt reports that knee pain began about 10-15 years ago after she was using an ellipticle too much. Knee pain on the R is worse than the L, but she believed the L is catching up. She has the most pain in the morning with the first few steps out of bed and with stairs. She has knee pain daily and it is about a 3-4/10. Pain is always on the inferior/lateral portion of her knee. She has not had any imaging of her knees that she can remember. She used to take advil or aleve for pain but she cannot take either any more d/t dec kidney function. Pain currently bothers her most from being able to get up and down from the ground (she has to go very slowly to avoid landing on knee cap) and ascending and descending stair. PT-OP-F Manual Assessment Start: 12/23/18 11:09 Freq: Status: Active Protocol: Document 12/24/18 14:37 [facility] (Rec: 12/24/18 15:20 [facility] [id number]) Manual Assessments Joint Mobility Assessment Joint Mobility Assessment R ant elevated innominate PT-OP-G Mobility & Gait Start: 12/23/18 11:09 Freq: Status: Active Protocol: Document 12/24/18 14:37 [facility] (Rec: 12/24/18 18:20 [facility] [id number]) OP Gait Assessment Comments Gait Comments Pt is primarily a leg walker with some transverse plane rotation but no appropriate pelvic patterns. PT-OP-J Posture/Palpation/Skin Start: 12/23/18 11:09 Freq: Status: Active Protocol: Document 03/12/19 14:30 [facility] (Rec: 03/12/19 14:47 [facility] [id number]) Posture Evaluation [facility] Postural Classification System Elbow Flexion Test 3 Lumbar Protective Mechanism Left AP 2 Lumbar Protective Mechanism Right AP 2 Lumbar Protective Mechanism Left PA 1 Lumbar Protective Mechanism Right PA 1 PT-OP-K Range of Motion Start: 12/23/18 11:09 Freq: Status: Active Protocol: Document 03/20/19 15:15 [facility] (Rec: 03/20/19 15:29 [facility] [id number]) Knee Goniometric Range of Motion Knee Measured in Degrees Right Patient Position Supine Flexion Active (degrees) 135 Extension Active (degrees) 0 Left Patient Position Supine Flexion Active (degrees) 135 Extension Active (degrees) 0 PT-OP-L Special Tests Start: 12/23/18 11:09 Freq: Status: Active Protocol: Document 03/20/19 15:15 [facility] (Rec: 03/20/19 15:39 [facility] [id number]) Special Tests Knee Special Tests Eges Test Results possiblly positive for medial meniscus tear d/t pain in ER position w/squat Thessaly Test 5 Degrees Test Results neg B Varus- 25 Degrees Test Results neg B Valgus- 25 Degrees Test Results neg B Posterior Draw Test Results neg B Anterior Draw Test Results neg B PT-OP-M Strength Start: 12/23/18 11:09 Freq: Status: Active Protocol: Document 03/12/19 14:30 [facility] (Rec: 03/12/19 14:47 [facility] [id number]) Hip Strength Hip Manual Muscle Testing Left Flexion (L2) 4 Good Extension (S1) 4- Good- Abduction 4- Good- Adduction 5 Normal External Rotation 4+ Good+ Internal Rotation 4+ Good+ Right Flexion (L2) 4+ Good+ Extension (S1) 4 Good Abduction 4 Good Adduction 5 Normal External Rotation 4+ Good+ Internal Rotation 4+ Good+ Knee Strength Knee Manual Muscle Testing Left Extension (L3) 5 Normal Right Extension (L3) 5 Normal Ankle/Foot Strength Ankle and Foot Manual Muscle Testing Right Plantarflexion (S1) 5 Normal Left Plantarflexion (S1) 5 Normal PT-OP-Q Treatments Start: 12/23/18 11:09 Freq: Status: Active Protocol: Document 03/20/19 15:15 AR (Rec: 03/20/19 16:32 AR [email or web address]) Therapeutic Exercises Supine Exercises bridge Supine Exercise Name bridge with marches Side bilateral Reps/Minutes 10 reps Standing Exercises mini squat Standing Exercise Name to hover/tap chair Reps/Minutes 20 reps Comments added to HEP lunges Standing Exercise Name lunges Side bilateral Equipment Used hand on table for balance Reps/Minutes 15 ea Comments added to [facility] Manual Therapy Treatment Soft Tissue Mobilization ITB Body Location posterior border ITB Mobilization Type Rolling,Strumming Intensity/Depth Deep Body Position Supine Joint Mobilizations patella Joint PF Direction medial patellar glide Grade III Body Position Supine Comments knee in ext, 30 deg flexion PT-OP-R Modalities Start: 12/23/18 11:09 Freq: Status: Active Protocol: Document 12/26/18 10:20 [facility] (Rec: 12/26/18 12:02 [facility] [id number]) Hot Pack/Cold Pack Treatment Hot Pack Location lumbar & cervical Patient Position Hooklying Treatment Duration (minutes) 15 PT-OP-T Assessment and Plan Start: 12/23/18 11:09 Freq: Status: Active Protocol: Document 03/20/19 15:15 AR (Rec: 03/20/19 16:32 AR [email or web address]) Physical Therapy Assessment Goals stairs Impairment knee pain with stairs Short Term Goal (STG) Pt will be able to ascend and descend stairs with no inc in knee pain. STG Duration 04/19/2019 Line Helper Goal (LTG) Pt will ascend and descend stairs with minimal gait deviations and no inc in pain in order to be able to fully access community. LTG Duration 05/20/2019 activity Short Term Goal (STG) Pt will be able to attend a yoga class without inc pain. 03/12/19: pt has been unable to attend d/t recent of father and being out of town STG Duration 03/12/19 Retirement Goal (LTG) Pt will be able to get up/down from the ground without reported difficulty. 03/12/19: progressing. able to get up easily with use of external support. slight dec stability w/o external support LTG Duration 04/23/19 ROM Retirement Goal (LTG) Pt will have full neck ROM allowing her to drive without difficutly. 03/12/19: ROM has nearly doubled in all planes, but pt is still limited in rotation bilaterally LTG Duration 04/23/19 strength Short Term Goal (STG) Pt will be indep with HEP. STG Duration goal met Line Helper Goal (LTG) Pt will have 5/5 LE, UE strength, LPM, EFT & VCT to show improved core stability, postural alignment and allow her to do her recreational and daily activities without pain . 03/12/19: strength and postural improvements with all tests, but pt still has dec postural activations in some positions LTG Duration 04/23/19 Assessment Summary Assessment Pt's knee pain was assessed today. Pt presents with s/s consistent with osteoarthritis . Special tests for ligamentous structures were negative and only one meniscal test was positive for medial meniscus tear. Pt's hip and knee strength were tested last visit for re-assessment and pt has dec hip strength, but has improved since starting PT . Pt has full knee strength and ROM so it is likely that hip strength and poor mechanics are the primary drivers of pain. Pt is limited in functional activities like stairs and getting up and down from the ground d/t knee pain. Pt's R patella has a slight rotation compared to the L and may contribute to more pain in R knee than L. Therapy to focus on LE strength in functional positions, manual therapy for myofascial restrictions and joint mobility and motor re- education to dec pain and improve function. Physical Therapy Plan Frequency and Duration Frequency of Treatment 1-2x/wk Duration of Treatment 6 weeks Plan of Care Start Date 03/20/19 Plan of Care End Date 05/20/19 Therapeutic Interventions Therapeutic Interventions Aquatic Therapy,Balance Training,Gait Training,Home Exercise Program,Joint Mobilizations,Manual Therapy, Neuromuscular Re-education, Patient/Caregiver Education, Self-Care/Home Management,Soft Tissue Mobilization,Taping, Therapeutic Activities, Therapeutic Exercises Modalities Cold Pack/Ice Massage,Electric Stimulation,Hot Packs Next Visit Focus/Plan Next Note Type Treatment Note Next Visit Plan assess hip IR/ER. glute med ex (resisted side stepping, side plank, hip dips)
--- NOTE | 2019-04-01 10:25 | PT.OTN ---
Current Diagnoses Pain in right knee (04/01/19) Pain in left knee (04/01/19) Cervicalgia (04/01/19) Low back pain (04/01/19) Abnormal posture (04/01/19) Weakness (04/01/19) Physical Therapy Treatment Note PT-OP-A Visit Information Start: 12/23/18 11:09 Freq: Status: Active Protocol: Document 04/01/19 09:12 [facility] (Rec: 04/01/19 10:25 [facility] [id number]) Out-Patient Physical Therapy Visit Information Visit Information Visit Type Treatment Note Visit Start Time 09:05 Visit Stop Time 09:45 Total Visit Minutes 40 Visit Number 13 Number of PAYLOADER OPERATOR Visits 0 PT-OP-B Current Condition Start: 12/23/18 11:09 Freq: Status: Active Protocol: Document 12/24/18 14:37 [facility] (Rec: 12/24/18 15:20 [facility] [id number]) Current Condition History of Current Condition Current Complaints LBP, neck pain, B knees History of Current Condition Pt reports about 2 months ago she was moving and was moving a box and her back started hurting. REports she has learned to compensate for it but she has difficulty with ADLs like bending over to put on socks. Pt reports d/t neck pain she has difficulty with turning her neck when driving. Pt reprots getting out of bed has been difficult on her back. Pt has been working on losing weight and has lost 35 lbs so far. She goes for a 45 min walk every morning and wants to start yoga class but is scared d/t back, neck and knee pain. She cannot kneel d/ t knee pain. Pt has history of knee pain B for 10 years. Pt reports neck doesn't hurt as much but is really stiff. Pt reports she has reduced kidney function (50 GFR), which limits her ability to take pain killers. Prior Treatments and Tests Xrays showing mild degeneragtion Treatment Goals Patient/Caregiver Goals Learn how to hold her body, strengthen back and knees to be able to go to yoga class PT-OP-C Subjective Start: 12/23/18 11:09 Freq: Status: Active Protocol: Document 04/01/19 09:12 [facility] (Rec: 04/01/19 10:25 [facility] [id number]) OP-PT Subjective Patient Comments Patient Comments Pt reprots B knee soreness for a few days after last session . COmpliance with HEP PT-OP-F Manual Assessment Start: 12/23/18 11:09 Freq: Status: Active Protocol: Document 12/24/18 14:37 [facility] (Rec: 12/24/18 15:20 [facility] [id number]) Manual Assessments Joint Mobility Assessment Joint Mobility Assessment R ant elevated innominate PT-OP-G Mobility & Gait Start: 12/23/18 11:09 Freq: Status: Active Protocol: Document 12/24/18 14:37 [facility] (Rec: 12/24/18 18:20 [facility] [id number]) OP Gait Assessment Comments Gait Comments Pt is primarily a leg walker with some transverse plane rotation but no appropriate pelvic patterns. PT-OP-J Posture/Palpation/Skin Start: 12/23/18 11:09 Freq: Status: Active Protocol: Document 03/12/19 14:30 [facility] (Rec: 03/12/19 14:47 [facility] [id number]) Posture Evaluation Aquiles Postural Classification System Elbow Flexion Test 3 Lumbar Protective Mechanism Left AP 2 Lumbar Protective Mechanism Right AP 2 Lumbar Protective Mechanism Left PA 1 Lumbar Protective Mechanism Right PA 1 PT-OP-K Range of Motion Start: 12/23/18 11:09 Freq: Status: Active Protocol: Document 03/20/19 15:15 [facility] (Rec: 03/20/19 15:29 [facility] [id number]) Knee Goniometric Range of Motion Knee Right Patient Position Supine Flexion Active (degrees) 135 Extension Active (degrees) 0 Left Patient Position Supine Flexion Active (degrees) 135 Extension Active (degrees) 0 PT-OP-L Special Tests Start: 12/23/18 11:09 Freq: Status: Active Protocol: Document 03/20/19 15:15 [facility] (Rec: 03/20/19 15:39 [facility] [id number]) Special Tests Knee Special Tests Eges Test Results possiblly positive for medial meniscus tear d/t pain in ER position w/squat Thessaly Test 5 Degrees Test Results neg B Varus- 25 Degrees Test Results neg B Valgus- 25 Degrees Test Results neg B Posterior Draw Test Results neg B Anterior Draw Test Results neg B PT-OP-M Strength Start: 12/23/18 11:09 Freq: Status: Active Protocol: Document 03/12/19 14:30 [facility] (Rec: 03/12/19 14:47 [facility] [id number]) Hip Strength Hip Manual Muscle Testing Left Flexion (L2) 4 Good Extension (S1) 4- Good- Abduction 4- Good- Adduction 5 Normal External Rotation 4+ Good+ Internal Rotation 4+ Good+ Right Flexion (L2) 4+ Good+ Extension (S1) 4 Good Abduction 4 Good Adduction 5 Normal External Rotation 4+ Good+ Internal Rotation 4+ Good+ Knee Strength Knee Manual Muscle Testing Left Extension (L3) 5 Normal Right Extension (L3) 5 Normal Ankle/Foot Strength Ankle and Foot Manual Muscle Testing Right Plantarflexion (S1) 5 Normal Left Plantarflexion (S1) 5 Normal PT-OP-Q Treatments Start: 12/23/18 11:09 Freq: Status: Active Protocol: Document 04/01/19 09:12 [facility] (Rec: 04/01/19 10:25 [facility] [id number]) Therapeutic Exercises Supine Exercises bridge Supine Exercise Name bridge with marches Side bilateral Reps/Minutes 10 reps Sidelying Exercises clamshells Sidelying Exercise Name clamshells Side bilateral Reps/Minutes 10 ea Comments added to HEP hip abd Sidelying Exercise Name sidelying SLR Side bilateral Reps/Minutes 10 ea Comments added to HEP Standing Exercises mini squat Standing Exercise Name sit to stand Reps/Minutes 10 squat with lateral stepping Standing Exercise Name lat step then lat step with squat Side bilateral Reps/Minutes 20ft each B lunges Standing Exercise Name mini lunges Side bilateral Equipment Used hand on table for balance Reps/Minutes 15 ea Comments added to HEP Manual Therapy Treatment Soft Tissue Mobilization ITB Body Location ITB Mobilization Type Rolling,Strumming Intensity/Depth Moderate Body Position Supine Comments B Joint Mobilizations patella Joint PF Direction medial, inf & sup Grade III Body Position Supine Comments knee in ext PT-OP-R Modalities Start: 12/23/18 11:09 Freq: Status: Active Protocol: Document 12/26/18 10:20 [facility] (Rec: 12/26/18 12:02 [facility] [id number]) Hot Pack/Cold Pack Treatment Hot Pack Location lumbar & cervical Patient Position Hooklying Treatment Duration (minutes) 15 PT-OP-T Assessment and Plan Start: 12/23/18 11:09 Freq: Status: Active Protocol: Document 04/01/19 09:12 [facility] (Rec: 04/01/19 10:25 [facility] [id number]) Physical Therapy Assessment Goals stairs Impairment knee pain with stairs Short Term Goal (STG) Pt will be able to ascend and descend stairs with no inc in knee pain. STG Duration 04/19/2019 Retirement Goal (LTG) Pt will ascend and descend stairs with minimal gait deviations and no inc in pain in order to be able to fully access community. LTG Duration 05/20/2019 activity Short Term Goal (STG) Pt will be able to attend a yoga class without inc pain. 03/12/19: pt has been unable to attend d/t recent of father and being out of town STG Duration 03/12/19 Retirement Goal (LTG) Pt will be able to get up/down from the ground without reported difficulty. 03/12/19: progressing. able to get up easily with use of external support. slight dec stability w/o external support LTG Duration 04/23/19 ROM Retirement Goal (LTG) Pt will have full neck ROM allowing her to drive without difficutly. 03/12/19: ROM has nearly doubled in all planes, but pt is still limited in rotation bilaterally LTG Duration 04/23/19 strength Short Term Goal (STG) Pt will be indep with HEP. STG Duration goal met Flash Designer Goal (LTG) Pt will have 5/5 LE, UE strength, LPM, EFT & VCT to show improved core stability, postural alignment and allow her to do her recreational and daily activities without pain . 03/12/19: strength and postural improvements with all tests, but pt still has dec postural activations in some positions LTG Duration 04/23/19 Assessment Summary Assessment Cueing required for lunging exercise for positioning & comfortable range. Good form with min cueing with sit<> stand and bridge with september. Set up and form cueing required for s/l exercies. Physical Therapy Plan Frequency and Duration Frequency of Treatment 1-2x/wk Duration of Treatment 6 weeks Plan of Care Start Date 03/20/19 Plan of Care End Date 05/20/19 Next Visit Focus/Plan Next Note Type Treatment Note Next Visit Plan cont to work hip ext & abd strength; knee joint mobility & soft tissue
--- NOTE | 2019-04-09 19:04 | PT.OTN ---
Current Diagnoses Pain in right knee (04/09/19) Pain in left knee (04/09/19) Cervicalgia (04/09/19) Low back pain (04/09/19) Abnormal posture (04/09/19) Weakness (04/09/19) Physical Therapy Treatment Note PT-OP-A Visit Information Start: 12/23/18 11:09 Freq: Status: Active Protocol: Document 04/09/19 19:00 [facility] (Rec: 04/09/19 19:03 [facility] [id number]) Out-Patient Physical Therapy Visit Information Visit Information Visit Type Treatment Note Visit Start Time 11:22 Visit Stop Time 12:00 Total Visit Minutes 38 Visit Number 14 Number of DENTISTRY TEACHER Visits 0 PT-OP-B Current Condition Start: 12/23/18 11:09 Freq: Status: Active Protocol: Document 12/24/18 14:37 [facility] (Rec: 12/24/18 15:20 [facility] [id number]) Current Condition History of Current Condition Current Complaints LBP, neck pain, B knees History of Current Condition Pt reports about 2 months ago she was moving and was moving a box and her back started hurting. REports she has learned to compensate for it but she has difficulty with ADLs like bending over to put on socks. Pt reports d/t neck pain she has difficulty with turning her neck when driving. Pt reprots getting out of bed has been difficult on her back. Pt has been working on losing weight and has lost 35 lbs so far. She goes for a 45 min walk every morning and wants to start yoga class but is scared d/t back, neck and knee pain. She cannot kneel d/ t knee pain. Pt has history of knee pain B for 10 years. Pt reports neck doesn't hurt as much but is really stiff. Pt reports she has reduced kidney function (50 GFR), which limits her ability to take pain killers. Prior Treatments and Tests Xrays showing mild degeneragtion Treatment Goals Patient/Caregiver Goals Learn how to hold her body, strengthen back and knees to be able to go to yoga class PT-OP-C Subjective Start: 12/23/18 11:09 Freq: Status: Active Protocol: Document 04/09/19 19:00 [facility] (Rec: 04/09/19 19:03 [facility] [id number]) OP-PT Subjective Patient Comments Patient Comments Pt reprots she wants to go over what to do for HEP PT-OP-F Manual Assessment Start: 12/23/18 11:09 Freq: Status: Active Protocol: Document 12/24/18 14:37 [facility] (Rec: 12/24/18 15:20 [facility] [id number]) Manual Assessments Joint Mobility Assessment Joint Mobility Assessment R ant elevated innominate PT-OP-G Mobility & Gait Start: 12/23/18 11:09 Freq: Status: Active Protocol: Document 12/24/18 14:37 [facility] (Rec: 12/24/18 18:20 [facility] [id number]) OP Gait Assessment Comments Gait Comments Pt is primarily a leg walker with some transverse plane rotation but no appropriate pelvic patterns. PT-OP-J Posture/Palpation/Skin Start: 12/23/18 11:09 Freq: Status: Active Protocol: Document 03/12/19 14:30 [facility] (Rec: 03/12/19 14:47 [facility] [id number]) Posture Evaluation Aquiles Postural Classification System Elbow Flexion Test 3 Lumbar Protective Mechanism Left AP 2 Lumbar Protective Mechanism Right AP 2 Lumbar Protective Mechanism Left PA 1 Lumbar Protective Mechanism Right PA 1 PT-OP-K Range of Motion Start: 12/23/18 11:09 Freq: Status: Active Protocol: Document 03/20/19 15:15 [facility] (Rec: 03/20/19 15:29 [facility] [id number]) Knee Goniometric Range of Motion Knee Right Patient Position Supine Flexion Active (degrees) 135 Extension Active (degrees) 0 Left Patient Position Supine Flexion Active (degrees) 135 Extension Active (degrees) 0 PT-OP-L Special Tests Start: 12/23/18 11:09 Freq: Status: Active Protocol: Document 03/20/19 15:15 [facility] (Rec: 03/20/19 15:39 [facility] [id number]) Special Tests Knee Special Tests Eges Test Results possiblly positive for medial meniscus tear d/t pain in ER position w/squat Thessaly Test 5 Degrees Test Results neg B Varus- 25 Degrees Test Results neg B Valgus- 25 Degrees Test Results neg B Posterior Draw Test Results neg B Anterior Draw Test Results neg B PT-OP-M Strength Start: 12/23/18 11:09 Freq: Status: Active Protocol: Document 03/12/19 14:30 [facility] (Rec: 03/12/19 14:47 [facility] [id number]) Hip Strength Hip Manual Muscle Testing Left Flexion (L2) 4 Good Extension (S1) 4- Good- Abduction 4- Good- Adduction 5 Normal External Rotation 4+ Good+ Internal Rotation 4+ Good+ Right Flexion (L2) 4+ Good+ Extension (S1) 4 Good Abduction 4 Good Adduction 5 Normal External Rotation 4+ Good+ Internal Rotation 4+ Good+ Knee Strength Knee Manual Muscle Testing Left Extension (L3) 5 Normal Right Extension (L3) 5 Normal Ankle/Foot Strength Ankle and Foot Manual Muscle Testing Right Plantarflexion (S1) 5 Normal Left Plantarflexion (S1) 5 Normal PT-OP-Q Treatments Start: 12/23/18 11:09 Freq: Status: Active Protocol: Document 04/09/19 19:00 [facility] (Rec: 04/09/19 19:03 [facility] [id number]) Therapeutic Exercises Sitting Exercises stretches Sitting Exercise Name rotation & UT stretch Side bilateral Reps/Minutes 30 sec ea Standing Exercises lunges Standing Exercise Name mini lunges Side bilateral Equipment Used hand on table for balance Reps/Minutes 15 ea Comments focus on hip posiiton squat Standing Exercise Name over chair Side bilateral Reps/Minutes 15 Comments focus on positioning of knees wall posture Standing Exercise Name w/90/90 ER Side bilateral Reps/Minutes 10 Manual Therapy Treatment Soft Tissue Mobilization ITB Body Location ITB Mobilization Type Rolling,Strumming Intensity/Depth Moderate Body Position Supine Comments L 1 Body Location scalnes SCM L Mobilization Type Rolling,Strumming Joint Mobilizations thoracic Joint T1-2 Direction UPA L FM Self-Care/Home Management Treatment Education Patient Education Home Exercise Program Other Education Review of exercises and which to stop and which to foucs on PT-OP-R Modalities Start: 12/23/18 11:09 Freq: Status: Active Protocol: Document 12/26/18 10:20 [facility] (Rec: 12/26/18 12:02 [facility] [id number]) Hot Pack/Cold Pack Treatment Hot Pack Location lumbar & cervical Patient Position Hooklying Treatment Duration (minutes) 15 PT-OP-T Assessment and Plan Start: 12/23/18 11:09 Freq: Status: Active Protocol: Document 04/09/19 19:00 [facility] (Rec: 04/09/19 19:03 [facility] [id number]) Physical Therapy Assessment Goals stairs Impairment knee pain with stairs Short Term Goal (STG) Pt will be able to ascend and descend stairs with no inc in knee pain. STG Duration 04/19/2019 Senior Living Goal (LTG) Pt will ascend and descend stairs with minimal gait deviations and no inc in pain in order to be able to fully access community. LTG Duration 05/20/2019 activity Short Term Goal (STG) Pt will be able to attend a yoga class without inc pain. 03/12/19: pt has been unable to attend d/t recent of father and being out of town STG Duration 03/12/19 Pelletizer Operator Goal (LTG) Pt will be able to get up/down from the ground without reported difficulty. 03/12/19: progressing. able to get up easily with use of external support. slight dec stability w/o external support LTG Duration 04/23/19 ROM Senior Living Goal (LTG) Pt will have full neck ROM allowing her to drive without difficutly. 03/12/19: ROM has nearly doubled in all planes, but pt is still limited in rotation bilaterally LTG Duration 04/23/19 strength Short Term Goal (STG) Pt will be indep with HEP. STG Duration goal met Pelletizer Operator Goal (LTG) Pt will have 5/5 LE, UE strength, LPM, EFT & VCT to show improved core stability, postural alignment and allow her to do her recreational and daily activities without pain . 03/12/19: strength and postural improvements with all tests, but pt still has dec postural activations in some positions LTG Duration 04/23/19 Assessment Summary Assessment Pt reuqired cueing for squats, lunges & wall posture exercises for form today. She had imporved cervical L rotation after manual treatment. Physical Therapy Plan Frequency and Duration Frequency of Treatment 1-2x/wk Duration of Treatment 6 weeks Plan of Care Start Date 03/20/19 Plan of Care End Date 05/20/19 Next Visit Focus/Plan Next Note Type Treatment Note Next Visit Plan cont to work hip ext & abd strength; knee joint mobility & soft tissue
--- NOTE | 2019-04-14 10:37 | PT.OTN ---
Current Diagnoses Pain in right knee (04/14/19) Pain in left knee (04/14/19) Cervicalgia (04/14/19) Low back pain (04/14/19) Abnormal posture (04/14/19) Weakness (04/14/19) Physical Therapy Treatment Note PT-OP-A Visit Information Start: 12/23/18 11:09 Freq: Status: Active Protocol: Document 04/14/19 09:52 [facility] (Rec: 04/14/19 10:37 [facility] [id number]) Out-Patient Physical Therapy Visit Information Visit Information Visit Type Treatment Note Visit Start Time 09:47 Visit Stop Time 10:26 Total Visit Minutes 39 Visit Number 15 Number of CLINICAL EDUCATION COORDINATOR Visits 0 PT-OP-B Current Condition Start: 12/23/18 11:09 Freq: Status: Active Protocol: Document 12/24/18 14:37 [facility] (Rec: 12/24/18 15:20 [facility] [id number]) Current Condition History of Current Condition Current Complaints LBP, neck pain, B knees History of Current Condition Pt reports about 2 months ago she was moving and was moving a box and her back started hurting. REports she has learned to compensate for it but she has difficulty with ADLs like bending over to put on socks. Pt reports d/t neck pain she has difficulty with turning her neck when driving. Pt reprots getting out of bed has been difficult on her back. Pt has been working on losing weight and has lost 35 lbs so far. She goes for a 45 min walk every morning and wants to start yoga class but is scared d/t back, neck and knee pain. She cannot kneel d/ t knee pain. Pt has history of knee pain B for 10 years. Pt reports neck doesn't hurt as much but is really stiff. Pt reports she has reduced kidney function (50 GFR), which limits her ability to take pain killers. Prior Treatments and Tests Xrays showing mild degeneragtion Treatment Goals Patient/Caregiver Goals Learn how to hold her body, strengthen back and knees to be able to go to yoga class PT-OP-C Subjective Start: 12/23/18 11:09 Freq: Status: Active Protocol: Document 04/14/19 09:52 [facility] (Rec: 04/14/19 10:37 [facility] [id number]) OP-PT Subjective Patient Comments Patient Comments Reports a couple of HEP questons PT-OP-F Manual Assessment Start: 12/23/18 11:09 Freq: Status: Active Protocol: Document 12/24/18 14:37 [facility] (Rec: 12/24/18 15:20 [facility] [id number]) Manual Assessments Joint Mobility Assessment Joint Mobility Assessment R ant elevated innominate PT-OP-G Mobility & Gait Start: 12/23/18 11:09 Freq: Status: Active Protocol: Document 12/24/18 14:37 [facility] (Rec: 12/24/18 18:20 [facility] [id number]) OP Gait Assessment Comments Gait Comments Pt is primarily a leg walker with some transverse plane rotation but no appropriate pelvic patterns. PT-OP-J Posture/Palpation/Skin Start: 12/23/18 11:09 Freq: Status: Active Protocol: Document 03/12/19 14:30 [facility] (Rec: 03/12/19 14:47 [facility] [id number]) Posture Evaluation Aquiles Postural Classification System Elbow Flexion Test 3 Lumbar Protective Mechanism Left AP 2 Lumbar Protective Mechanism Right AP 2 Lumbar Protective Mechanism Left PA 1 Lumbar Protective Mechanism Right PA 1 PT-OP-K Range of Motion Start: 12/23/18 11:09 Freq: Status: Active Protocol: Document 03/20/19 15:15 [facility] (Rec: 03/20/19 15:29 [facility] [id number]) Knee Goniometric Range of Motion Knee Right Patient Position Supine Flexion Active (degrees) 135 Extension Active (degrees) 0 Left Patient Position Supine Flexion Active (degrees) 135 Extension Active (degrees) 0 PT-OP-L Special Tests Start: 12/23/18 11:09 Freq: Status: Active Protocol: Document 03/20/19 15:15 [facility] (Rec: 03/20/19 15:39 [facility] [id number]) Special Tests Knee Special Tests Eges Test Results possiblly positive for medial meniscus tear d/t pain in ER position w/squat Thessaly Test 5 Degrees Test Results neg B Varus- 25 Degrees Test Results neg B Valgus- 25 Degrees Test Results neg B Posterior Draw Test Results neg B Anterior Draw Test Results neg B PT-OP-M Strength Start: 12/23/18 11:09 Freq: Status: Active Protocol: Document 03/12/19 14:30 [facility] (Rec: 03/12/19 14:47 [facility] [id number]) Hip Strength Hip Manual Muscle Testing Left Flexion (L2) 4 Good Extension (S1) 4- Good- Abduction 4- Good- Adduction 5 Normal External Rotation 4+ Good+ Internal Rotation 4+ Good+ Right Flexion (L2) 4+ Good+ Extension (S1) 4 Good Abduction 4 Good Adduction 5 Normal External Rotation 4+ Good+ Internal Rotation 4+ Good+ Knee Strength Knee Manual Muscle Testing Left Extension (L3) 5 Normal Right Extension (L3) 5 Normal Ankle/Foot Strength Ankle and Foot Manual Muscle Testing Right Plantarflexion (S1) 5 Normal Left Plantarflexion (S1) 5 Normal PT-OP-Q Treatments Start: 12/23/18 11:09 Freq: Status: Active Protocol: Document 04/14/19 09:52 [facility] (Rec: 04/14/19 10:37 [facility] [id number]) Gym Equipment Shuttle Balance red clips Details fwd & side: WBOS, NBOS Sport Cord walk Exercise Details fwd, back & side B Cord/Resistance red Reps/Duration 10 ea Therapeutic Exercises Standing Exercises lunges Standing Exercise Name mini lunges Side bilateral Equipment Used hand on table for balance Reps/Minutes 15 ea Comments focus on hip posiiton wall posture Standing Exercise Name w/90/90 ER Side bilateral Reps/Minutes 10 Manual Therapy Treatment Soft Tissue Mobilization ITB Body Location ITB Mobilization Type Rolling,Strumming Intensity/Depth Moderate Body Position Supine Comments B Joint Mobilizations patella Joint PF Direction medial, inf & sup Grade III Body Position Supine Comments knee in ext PT-OP-R Modalities Start: 12/23/18 11:09 Freq: Status: Active Protocol: Document 12/26/18 10:20 [facility] (Rec: 12/26/18 12:02 [facility] [id number]) Hot Pack/Cold Pack Treatment Hot Pack Location lumbar & cervical Patient Position Hooklying Treatment Duration (minutes) 15 PT-OP-T Assessment and Plan Start: 12/23/18 11:09 Freq: Status: Active Protocol: Document 04/14/19 09:52 [facility] (Rec: 04/14/19 10:37 [facility] [id number]) Physical Therapy Assessment Goals stairs Impairment knee pain with stairs Short Term Goal (STG) Pt will be able to ascend and descend stairs with no inc in knee pain. STG Duration 04/19/2019 Correction Goal (LTG) Pt will ascend and descend stairs with minimal gait deviations and no inc in pain in order to be able to fully access community. LTG Duration 05/20/2019 activity Short Term Goal (STG) Pt will be able to attend a yoga class without inc pain. 03/12/19: pt has been unable to attend d/t recent of father and being out of town STG Duration 03/12/19 Correction Goal (LTG) Pt will be able to get up/down from the ground without reported difficulty. 03/12/19: progressing. able to get up easily with use of external support. slight dec stability w/o external support LTG Duration 04/23/19 ROM Correction Goal (LTG) Pt will have full neck ROM allowing her to drive without difficutly. 03/12/19: ROM has nearly doubled in all planes, but pt is still limited in rotation bilaterally LTG Duration 04/23/19 strength Short Term Goal (STG) Pt will be indep with HEP. STG Duration goal met Correction Goal (LTG) Pt will have 5/5 LE, UE strength, LPM, EFT & VCT to show improved core stability, postural alignment and allow her to do her recreational and daily activities without pain . 03/12/19: strength and postural improvements with all tests, but pt still has dec postural activations in some positions LTG Duration 04/23/19 Assessment Summary Assessment Pt required cueing for scap positioning during wall roll up exercise. She did better with lunges today and added notes to her HEP papers for focus on core & neutral pelvis . She did well with balance board but was challenaged to stabilize. Physical Therapy Plan Frequency and Duration Frequency of Treatment 1-2x/wk Duration of Treatment 6 weeks Plan of Care Start Date 03/20/19 Plan of Care End Date 05/20/19 Next Visit Focus/Plan Next Note Type Treatment Note Next Visit Plan cont to work hip ext & abd strength; knee joint mobility & soft tissue
--- NOTE | 2019-04-16 19:05 | PT.OTN ---
Current Diagnoses Pain in right knee (04/16/19) Pain in left knee (04/16/19) Cervicalgia (04/16/19) Low back pain (04/16/19) Abnormal posture (04/16/19) Weakness (04/16/19) Physical Therapy Treatment Note PT-OP-A Visit Information Start: 12/23/18 11:09 Freq: Status: Active Protocol: Document 04/16/19 18:58 [facility] (Rec: 04/16/19 19:05 [facility] [id number]) Out-Patient Physical Therapy Visit Information Visit Information Visit Type Treatment Note Visit Start Time 10:31 Visit Stop Time 11:13 Total Visit Minutes 42 Visit Number 16 Number of INSPECTOR AND CLIPPER Visits 0 PT-OP-B Current Condition Start: 12/23/18 11:09 Freq: Status: Active Protocol: Document 12/24/18 14:37 [facility] (Rec: 12/24/18 15:20 [facility] [id number]) Current Condition History of Current Condition Current Complaints LBP, neck pain, B knees History of Current Condition Pt reports about 2 months ago she was moving and was moving a box and her back started hurting. REports she has learned to compensate for it but she has difficulty with ADLs like bending over to put on socks. Pt reports d/t neck pain she has difficulty with turning her neck when driving. Pt reprots getting out of bed has been difficult on her back. Pt has been working on losing weight and has lost 35 lbs so far. She goes for a 45 min walk every morning and wants to start yoga class but is scared d/t back, neck and knee pain. She cannot kneel d/ t knee pain. Pt has history of knee pain B for 10 years. Pt reports neck doesn't hurt as much but is really stiff. Pt reports she has reduced kidney function (50 GFR), which limits her ability to take pain killers. Prior Treatments and Tests Xrays showing mild degeneragtion Treatment Goals Patient/Caregiver Goals Learn how to hold her body, strengthen back and knees to be able to go to yoga class PT-OP-C Subjective Start: 12/23/18 11:09 Freq: Status: Active Protocol: Document 04/16/19 18:58 [facility] (Rec: 04/16/19 19:05 [facility] [id number]) OP-PT Subjective Patient Comments Patient Comments Pt reports knees still giving her a hard time. PT-OP-F Manual Assessment Start: 12/23/18 11:09 Freq: Status: Active Protocol: Document 12/24/18 14:37 [facility] (Rec: 12/24/18 15:20 [facility] [id number]) Manual Assessments Joint Mobility Assessment Joint Mobility Assessment R ant elevated innominate PT-OP-G Mobility & Gait Start: 12/23/18 11:09 Freq: Status: Active Protocol: Document 12/24/18 14:37 [facility] (Rec: 12/24/18 18:20 [facility] [id number]) OP Gait Assessment Comments Gait Comments Pt is primarily a leg walker with some transverse plane rotation but no appropriate pelvic patterns. PT-OP-J Posture/Palpation/Skin Start: 12/23/18 11:09 Freq: Status: Active Protocol: Document 03/12/19 14:30 [facility] (Rec: 03/12/19 14:47 [facility] [id number]) Posture Evaluation Aquiles Postural Classification System Elbow Flexion Test 3 Lumbar Protective Mechanism Left AP 2 Lumbar Protective Mechanism Right AP 2 Lumbar Protective Mechanism Left PA 1 Lumbar Protective Mechanism Right PA 1 PT-OP-K Range of Motion Start: 12/23/18 11:09 Freq: Status: Active Protocol: Document 03/20/19 15:15 [facility] (Rec: 03/20/19 15:29 [facility] [id number]) Knee Goniometric Range of Motion Knee Right Patient Position Supine Flexion Active (degrees) 135 Extension Active (degrees) 0 Left Patient Position Supine Flexion Active (degrees) 135 Extension Active (degrees) 0 PT-OP-L Special Tests Start: 12/23/18 11:09 Freq: Status: Active Protocol: Document 03/20/19 15:15 [facility] (Rec: 03/20/19 15:39 [facility] [id number]) Special Tests Knee Special Tests Eges Test Results possiblly positive for medial meniscus tear d/t pain in ER position w/squat Thessaly Test 5 Degrees Test Results neg B Varus- 25 Degrees Test Results neg B Valgus- 25 Degrees Test Results neg B Posterior Draw Test Results neg B Anterior Draw Test Results neg B PT-OP-M Strength Start: 12/23/18 11:09 Freq: Status: Active Protocol: Document 03/12/19 14:30 [facility] (Rec: 03/12/19 14:47 [facility] [id number]) Hip Strength Hip Manual Muscle Testing Left Flexion (L2) 4 Good Extension (S1) 4- Good- Abduction 4- Good- Adduction 5 Normal External Rotation 4+ Good+ Internal Rotation 4+ Good+ Right Flexion (L2) 4+ Good+ Extension (S1) 4 Good Abduction 4 Good Adduction 5 Normal External Rotation 4+ Good+ Internal Rotation 4+ Good+ Knee Strength Knee Manual Muscle Testing Left Extension (L3) 5 Normal Right Extension (L3) 5 Normal Ankle/Foot Strength Ankle and Foot Manual Muscle Testing Right Plantarflexion (S1) 5 Normal Left Plantarflexion (S1) 5 Normal PT-OP-Q Treatments Start: 12/23/18 11:09 Freq: Status: Active Protocol: Document 04/16/19 18:58 [facility] (Rec: 04/16/19 19:05 [facility] [id number]) Gym Equipment Shuttle Balance red clips Details fwd & side: WBOS, NBOS & staggered stance Sport Cord walk Exercise Details fwd, back & side B Cord/Resistance blue Reps/Duration 10 ea Comments w/squat at end of resistance Therapeutic Exercises Standing Exercises step ups Standing Exercise Name onto bosu Side bilateral Reps/Minutes 10 Manual Therapy Treatment Soft Tissue Mobilization ITB Body Location ITB Mobilization Type Rolling,Strumming Intensity/Depth Moderate Body Position Supine Comments B Joint Mobilizations TF Joint R Direction AP on femur & tibia FM PT-OP-R Modalities Start: 12/23/18 11:09 Freq: Status: Active Protocol: Document 12/26/18 10:20 [facility] (Rec: 12/26/18 12:02 [facility] [id number]) Hot Pack/Cold Pack Treatment Hot Pack Location lumbar & cervical Patient Position Hooklying Treatment Duration (minutes) 15 PT-OP-T Assessment and Plan Start: 12/23/18 11:09 Freq: Status: Active Protocol: Document 04/16/19 18:58 [facility] (Rec: 04/16/19 19:05 [facility] [id number]) Physical Therapy Assessment Goals stairs Impairment knee pain with stairs Short Term Goal (STG) Pt will be able to ascend and descend stairs with no inc in knee pain. STG Duration 04/19/2019 [employer] Goal (LTG) Pt will ascend and descend stairs with minimal gait deviations and no inc in pain in order to be able to fully access community. LTG Duration 05/20/2019 activity Short Term Goal (STG) Pt will be able to attend a yoga class without inc pain. 03/12/19: pt has been unable to attend d/t recent of father and being out of town STG Duration 03/12/19 [employer] Goal (LTG) Pt will be able to get up/down from the ground without reported difficulty. 03/12/19: progressing. able to get up easily with use of external support. slight dec stability w/o external support LTG Duration 04/23/19 ROM [employer] Goal (LTG) Pt will have full neck ROM allowing her to drive without difficutly. 03/12/19: ROM has nearly doubled in all planes, but pt is still limited in rotation bilaterally LTG Duration 04/23/19 strength Short Term Goal (STG) Pt will be indep with HEP. STG Duration goal met [employer] Goal (LTG) Pt will have 5/5 LE, UE strength, LPM, EFT & VCT to show improved core stability, postural alignment and allow her to do her recreational and daily activities without pain . 03/12/19: strength and postural improvements with all tests, but pt still has dec postural activations in some positions LTG Duration 04/23/19 Assessment Summary Assessment d/t pt asking re: nutrition for inflammtion, explained there are mult thought processes on this and if she is interested to discuss with a luis AHUJA or dietian. Pt asked aobut skiiing and was instructed to refer to re: safety but it would likely inc knee pain that day and if okayed then to stay on very easy hills. Pt cont ot have ITB tightness on L>R side. Improved ability to balance demonstrated today. Physical Therapy Plan Frequency and Duration Frequency of Treatment 1-2x/wk Duration of Treatment 6 weeks Plan of Care Start Date 03/20/19 Plan of Care End Date 05/20/19 Next Visit Focus/Plan Next Note Type Treatment Note Next Visit Plan cont to work hip ext & abd strength; knee joint mobility & soft tissue; work on step ups & step down
--- NOTE | 2019-04-21 13:32 | PT.OTN ---
Current Diagnoses Pain in right knee (04/21/19) Pain in left knee (04/21/19) Cervicalgia (04/21/19) Low back pain (04/21/19) Abnormal posture (04/21/19) Weakness (04/21/19) Physical Therapy Treatment Note PT-OP-A Visit Information Start: 12/23/18 11:09 Freq: Status: Active Protocol: Document 04/21/19 10:01 [facility] (Rec: 04/21/19 13:32 [facility] [id number]) Out-Patient Physical Therapy Visit Information Visit Information Visit Type Treatment Note Visit Start Time 09:47 Visit Stop Time 10:30 Total Visit Minutes 43 Visit Number 17 Number of SERVICE RIG OPERATOR Visits 0 PT-OP-B Current Condition Start: 12/23/18 11:09 Freq: Status: Active Protocol: Document 12/24/18 14:37 [facility] (Rec: 12/24/18 15:20 [facility] [id number]) Current Condition History of Current Condition Current Complaints LBP, neck pain, B knees History of Current Condition Pt reports about 2 months ago she was moving and was moving a box and her back started hurting. REports she has learned to compensate for it but she has difficulty with ADLs like bending over to put on socks. Pt reports d/t neck pain she has difficulty with turning her neck when driving. Pt reprots getting out of bed has been difficult on her back. Pt has been working on losing weight and has lost 35 lbs so far. She goes for a 45 min walk every morning and wants to start yoga class but is scared d/t back, neck and knee pain. She cannot kneel d/ t knee pain. Pt has history of knee pain B for 10 years. Pt reports neck doesn't hurt as much but is really stiff. Pt reports she has reduced kidney function (50 GFR), which limits her ability to take pain killers. Prior Treatments and Tests Xrays showing mild degeneragtion Treatment Goals Patient/Caregiver Goals Learn how to hold her body, strengthen back and knees to be able to go to yoga class PT-OP-C Subjective Start: 12/23/18 11:09 Freq: Status: Active Protocol: Document 04/21/19 10:01 [facility] (Rec: 04/21/19 13:32 [facility] [id number]) OP-PT Subjective Patient Comments Patient Comments Pt reports neck is doing well. PT-OP-F Manual Assessment Start: 12/23/18 11:09 Freq: Status: Active Protocol: Document 12/24/18 14:37 [facility] (Rec: 12/24/18 15:20 [facility] [id number]) Manual Assessments Joint Mobility Assessment Joint Mobility Assessment R ant elevated innominate PT-OP-G Mobility & Gait Start: 12/23/18 11:09 Freq: Status: Active Protocol: Document 12/24/18 14:37 [facility] (Rec: 12/24/18 18:20 [facility] [id number]) OP Gait Assessment Comments Gait Comments Pt is primarily a leg walker with some transverse plane rotation but no appropriate pelvic patterns. PT-OP-J Posture/Palpation/Skin Start: 12/23/18 11:09 Freq: Status: Active Protocol: Document 03/12/19 14:30 [facility] (Rec: 03/12/19 14:47 [facility] [id number]) Posture Evaluation Aquiles Postural Classification System Elbow Flexion Test 3 Lumbar Protective Mechanism Left AP 2 Lumbar Protective Mechanism Right AP 2 Lumbar Protective Mechanism Left PA 1 Lumbar Protective Mechanism Right PA 1 PT-OP-K Range of Motion Start: 12/23/18 11:09 Freq: Status: Active Protocol: Document 03/20/19 15:15 [facility] (Rec: 03/20/19 15:29 [facility] [id number]) Knee Goniometric Range of Motion Knee Right Patient Position Supine Flexion Active (degrees) 135 Extension Active (degrees) 0 Left Patient Position Supine Flexion Active (degrees) 135 Extension Active (degrees) 0 PT-OP-L Special Tests Start: 12/23/18 11:09 Freq: Status: Active Protocol: Document 03/20/19 15:15 [facility] (Rec: 03/20/19 15:39 [facility] [id number]) Special Tests Knee Special Tests Eges Test Results possiblly positive for medial meniscus tear d/t pain in ER position w/squat Thessaly Test 5 Degrees Test Results neg B Varus- 25 Degrees Test Results neg B Valgus- 25 Degrees Test Results neg B Posterior Draw Test Results neg B Anterior Draw Test Results neg B PT-OP-M Strength Start: 12/23/18 11:09 Freq: Status: Active Protocol: Document 03/12/19 14:30 [facility] (Rec: 03/12/19 14:47 [facility] [id number]) Hip Strength Hip Manual Muscle Testing Left Flexion (L2) 4 Good Extension (S1) 4- Good- Abduction 4- Good- Adduction 5 Normal External Rotation 4+ Good+ Internal Rotation 4+ Good+ Right Flexion (L2) 4+ Good+ Extension (S1) 4 Good Abduction 4 Good Adduction 5 Normal External Rotation 4+ Good+ Internal Rotation 4+ Good+ Knee Strength Knee Manual Muscle Testing Left Extension (L3) 5 Normal Right Extension (L3) 5 Normal Ankle/Foot Strength Ankle and Foot Manual Muscle Testing Right Plantarflexion (S1) 5 Normal Left Plantarflexion (S1) 5 Normal PT-OP-Q Treatments Start: 12/23/18 11:09 Freq: Status: Active Protocol: Document 04/21/19 10:01 [facility] (Rec: 04/21/19 13:32 [facility] [id number]) Gym Equipment Sport Cord walk Exercise Details fwd, back & side B Cord/Resistance blue Reps/Duration 10 ea Comments w/squat at end of resistance Gait Training Gait Activity step up Description up 4 in step fwd Comments 15 step ups B 4 in steps reciprocally x5 Manual Therapy Treatment Soft Tissue Mobilization ITB Body Location ITB Mobilization Type Rolling,Strumming Intensity/Depth Moderate Body Position Supine Comments L Neuro Re-Education Treatment Other Activities PNF Details ant elevation & post depression Comments rhythmic initiation progressed to COI, progressed to reversal of concentrics pelvic girdle progressed to pelvis girdle & LE patterns PT-OP-R Modalities Start: 12/23/18 11:09 Freq: Status: Active Protocol: Document 12/26/18 10:20 [facility] (Rec: 12/26/18 12:02 [facility] [id number]) Hot Pack/Cold Pack Treatment Hot Pack Location lumbar & cervical Patient Position Hooklying Treatment Duration (minutes) 15 PT-OP-T Assessment and Plan Start: 12/23/18 11:09 Freq: Status: Active Protocol: Document 04/21/19 10:01 [facility] (Rec: 04/21/19 13:32 [facility] [id number]) Physical Therapy Assessment Goals stairs Impairment knee pain with stairs Short Term Goal (STG) Pt will be able to ascend and descend stairs with no inc in knee pain. STG Duration 04/19/2019 Oil And Gas Drafter Goal (LTG) Pt will ascend and descend stairs with minimal gait deviations and no inc in pain in order to be able to fully access community. LTG Duration 05/20/2019 activity Short Term Goal (STG) Pt will be able to attend a yoga class without inc pain. 03/12/19: pt has been unable to attend d/t recent of father and being out of town STG Duration 03/12/19 Half-Way Goal (LTG) Pt will be able to get up/down from the ground without reported difficulty. 03/12/19: progressing. able to get up easily with use of external support. slight dec stability w/o external support LTG Duration 04/23/19 ROM Oil And Gas Drafter Goal (LTG) Pt will have full neck ROM allowing her to drive without difficutly. 03/12/19: ROM has nearly doubled in all planes, but pt is still limited in rotation bilaterally LTG Duration 04/23/19 strength Short Term Goal (STG) Pt will be indep with HEP. STG Duration goal met Oil And Gas Drafter Goal (LTG) Pt will have 5/5 LE, UE strength, LPM, EFT & VCT to show improved core stability, postural alignment and allow her to do her recreational and daily activities without pain . 03/12/19: strength and postural improvements with all tests, but pt still has dec postural activations in some positions LTG Duration 04/23/19 Assessment Summary Assessment Pt had dec pain with stairs after going through PNF post depression & ant elevation pattern in s/l and then with stair training with VC. She is improving with walking vs resistance with end squat. Physical Therapy Plan Frequency and Duration Frequency of Treatment 1-2x/wk Duration of Treatment 6 weeks Plan of Care Start Date 03/20/19 Plan of Care End Date 05/20/19 Next Visit Focus/Plan Next Note Type Treatment Note Next Visit Plan work on step down and work on hip stabiltiy strength
--- NOTE | 2019-04-24 11:10 | PT.OTN ---
Current Diagnoses Pain in right knee (04/24/19) Pain in left knee (04/24/19) Cervicalgia (04/24/19) Low back pain (04/24/19) Abnormal posture (04/24/19) Weakness (04/24/19) Physical Therapy Treatment Note PT-OP-A Visit Information Start: 12/23/18 11:09 Freq: Status: Active Protocol: Document 04/24/19 10:44 [facility] (Rec: 04/24/19 11:10 [facility] [id number]) Out-Patient Physical Therapy Visit Information Visit Information Visit Type Treatment Note Visit Start Time 09:48 Visit Stop Time 10:30 Total Visit Minutes 42 Visit Number 18 Number of PHOTOGRAPHIC EDITOR Visits 0 PT-OP-B Current Condition Start: 12/23/18 11:09 Freq: Status: Active Protocol: Document 12/24/18 14:37 [facility] (Rec: 12/24/18 15:20 [facility] [id number]) Current Condition History of Current Condition Current Complaints LBP, neck pain, B knees History of Current Condition Pt reports about 2 months ago she was moving and was moving a box and her back started hurting. REports she has learned to compensate for it but she has difficulty with ADLs like bending over to put on socks. Pt reports d/t neck pain she has difficulty with turning her neck when driving. Pt reprots getting out of bed has been difficult on her back. Pt has been working on losing weight and has lost 35 lbs so far. She goes for a 45 min walk every morning and wants to start yoga class but is scared d/t back, neck and knee pain. She cannot kneel d/ t knee pain. Pt has history of knee pain B for 10 years. Pt reports neck doesn't hurt as much but is really stiff. Pt reports she has reduced kidney function (50 GFR), which limits her ability to take pain killers. Prior Treatments and Tests Xrays showing mild degeneragtion Treatment Goals Patient/Caregiver Goals Learn how to hold her body, strengthen back and knees to be able to go to yoga class PT-OP-C Subjective Start: 12/23/18 11:09 Freq: Status: Active Protocol: Document 04/24/19 10:44 [facility] (Rec: 04/24/19 11:10 [facility] [id number]) OP-PT Subjective Patient Comments Patient Comments Pt reports her hips and knees are sore today. Neck also feeling stiff. Unsure why. She still walked so she would keep moving. PT-OP-F Manual Assessment Start: 12/23/18 11:09 Freq: Status: Active Protocol: Document 12/24/18 14:37 [facility] (Rec: 12/24/18 15:20 [facility] [id number]) Manual Assessments Joint Mobility Assessment Joint Mobility Assessment R ant elevated innominate PT-OP-G Mobility & Gait Start: 12/23/18 11:09 Freq: Status: Active Protocol: Document 12/24/18 14:37 [facility] (Rec: 12/24/18 18:20 [facility] [id number]) OP Gait Assessment Comments Gait Comments Pt is primarily a leg walker with some transverse plane rotation but no appropriate pelvic patterns. PT-OP-J Posture/Palpation/Skin Start: 12/23/18 11:09 Freq: Status: Active Protocol: Document 03/12/19 14:30 [facility] (Rec: 03/12/19 14:47 [facility] [id number]) Posture Evaluation Aquiles Postural Classification System Elbow Flexion Test 3 Lumbar Protective Mechanism Left AP 2 Lumbar Protective Mechanism Right AP 2 Lumbar Protective Mechanism Left PA 1 Lumbar Protective Mechanism Right PA 1 PT-OP-K Range of Motion Start: 12/23/18 11:09 Freq: Status: Active Protocol: Document 03/20/19 15:15 [facility] (Rec: 03/20/19 15:29 [facility] [id number]) Knee Goniometric Range of Motion Knee Right Patient Position Supine Flexion Active (degrees) 135 Extension Active (degrees) 0 Left Patient Position Supine Flexion Active (degrees) 135 Extension Active (degrees) 0 PT-OP-L Special Tests Start: 12/23/18 11:09 Freq: Status: Active Protocol: Document 03/20/19 15:15 [facility] (Rec: 03/20/19 15:39 [facility] [id number]) Special Tests Knee Special Tests Eges Test Results possiblly positive for medial meniscus tear d/t pain in ER position w/squat Thessaly Test 5 Degrees Test Results neg B Varus- 25 Degrees Test Results neg B Valgus- 25 Degrees Test Results neg B Posterior Draw Test Results neg B Anterior Draw Test Results neg B PT-OP-M Strength Start: 12/23/18 11:09 Freq: Status: Active Protocol: Document 03/12/19 14:30 [facility] (Rec: 03/12/19 14:47 [facility] [id number]) Hip Strength Hip Manual Muscle Testing Left Flexion (L2) 4 Good Extension (S1) 4- Good- Abduction 4- Good- Adduction 5 Normal External Rotation 4+ Good+ Internal Rotation 4+ Good+ Right Flexion (L2) 4+ Good+ Extension (S1) 4 Good Abduction 4 Good Adduction 5 Normal External Rotation 4+ Good+ Internal Rotation 4+ Good+ Knee Strength Knee Manual Muscle Testing Left Extension (L3) 5 Normal Right Extension (L3) 5 Normal Ankle/Foot Strength Ankle and Foot Manual Muscle Testing Right Plantarflexion (S1) 5 Normal Left Plantarflexion (S1) 5 Normal PT-OP-Q Treatments Start: 12/23/18 11:09 Freq: Status: Active Protocol: Document 04/24/19 10:44 [facility] (Rec: 04/24/19 11:10 [facility] [id number]) Therapeutic Exercises Supine Exercises figure 4 Supine Exercise Name stretch R Side right Reps/Minutes 30 sec cristine test Supine Exercise Name stretch Side bilateral Reps/Minutes 45 sec Gait Training Gait Activity step downs Description 4 in Comments in mirror with focus on fwd wt shift step up Description up 6in down 4 in steps reciprocally Distance/Duration 4x Manual Therapy Treatment Soft Tissue Mobilization 1 Body Location R hip flexor & RF Mobilization Type Strumming,Sustained Pressure Intensity/Depth Moderate Body Position Supine Joint Mobilizations TF Joint tibfem R Direction AP on tibia FM patella Joint pF Direction sup, inf, med hip Joint R Direction inf & hip on axis ER Neuro Re-Education Treatment Other Activities PNF Details post depression Comments rhythmic initiation progressed to COI with pelvis girdle & LE patterns PT-OP-R Modalities Start: 12/23/18 11:09 Freq: Status: Active Protocol: Document 12/26/18 10:20 [facility] (Rec: 12/26/18 12:02 [facility] [id number]) Hot Pack/Cold Pack Treatment Hot Pack Location lumbar & cervical Patient Position Hooklying Treatment Duration (minutes) 15 PT-OP-T Assessment and Plan Start: 12/23/18 11:09 Freq: Status: Active Protocol: Document 04/24/19 10:44 [facility] (Rec: 04/24/19 11:10 [facility] [id number]) Physical Therapy Assessment Goals stairs Impairment knee pain with stairs Short Term Goal (STG) Pt will be able to ascend and descend stairs with no inc in knee pain. STG Duration 04/19/2019 Custodial Goal (LTG) Pt will ascend and descend stairs with minimal gait deviations and no inc in pain in order to be able to fully access community. LTG Duration 05/20/2019 activity Short Term Goal (STG) Pt will be able to attend a yoga class without inc pain. 03/12/19: pt has been unable to attend d/t recent of father and being out of town STG Duration 03/12/19 Custodial Goal (LTG) Pt will be able to get up/down from the ground without reported difficulty. 03/12/19: progressing. able to get up easily with use of external support. slight dec stability w/o external support LTG Duration 04/23/19 ROM Custodial Goal (LTG) Pt will have full neck ROM allowing her to drive without difficutly. 03/12/19: ROM has nearly doubled in all planes, but pt is still limited in rotation bilaterally LTG Duration 04/23/19 strength Short Term Goal (STG) Pt will be indep with HEP. STG Duration goal met Habitat Biologist Goal (LTG) Pt will have 5/5 LE, UE strength, LPM, EFT & VCT to show improved core stability, postural alignment and allow her to do her recreational and daily activities without pain . 03/12/19: strength and postural improvements with all tests, but pt still has dec postural activations in some positions LTG Duration 04/23/19 Assessment Summary Assessment Pt had improved gait and improved step up and down after manual therapy, PNF and training. She was able to do stairs better with less knee pain after session. Physical Therapy Plan Frequency and Duration Frequency of Treatment 1-2x/wk Duration of Treatment 6 weeks Plan of Care Start Date 03/20/19 Plan of Care End Date 05/20/19 Next Visit Focus/Plan Next Note Type Treatment Note Next Visit Plan work on step down and work on hip stabiltiy strength
--- NOTE | 2019-04-28 10:58 | PT.OTN ---
Current Diagnoses Pain in right knee (04/28/19) Pain in left knee (04/28/19) Cervicalgia (04/28/19) Low back pain (04/28/19) Abnormal posture (04/28/19) Weakness (04/28/19) Physical Therapy Treatment Note PT-OP-A Visit Information Start: 12/23/18 11:09 Freq: Status: Active Protocol: Document 04/28/19 08:45 [facility] (Rec: 04/28/19 10:57 [facility] [id number]) Out-Patient Physical Therapy Visit Information Visit Information Visit Type Treatment Note Visit Start Time 09:45 Visit Stop Time 10:29 Total Visit Minutes 44 Visit Number 19 Number of MOLD CHIPPER Visits 0 PT-OP-B Current Condition Start: 12/23/18 11:09 Freq: Status: Active Protocol: Document 12/24/18 14:37 [facility] (Rec: 12/24/18 15:20 [facility] [id number]) Current Condition History of Current Condition Current Complaints LBP, neck pain, B knees History of Current Condition Pt reports about 2 months ago she was moving and was moving a box and her back started hurting. REports she has learned to compensate for it but she has difficulty with ADLs like bending over to put on socks. Pt reports d/t neck pain she has difficulty with turning her neck when driving. Pt reprots getting out of bed has been difficult on her back. Pt has been working on losing weight and has lost 35 lbs so far. She goes for a 45 min walk every morning and wants to start yoga class but is scared d/t back, neck and knee pain. She cannot kneel d/ t knee pain. Pt has history of knee pain B for 10 years. Pt reports neck doesn't hurt as much but is really stiff. Pt reports she has reduced kidney function (50 GFR), which limits her ability to take pain killers. Prior Treatments and Tests Xrays showing mild degeneragtion Treatment Goals Patient/Caregiver Goals Learn how to hold her body, strengthen back and knees to be able to go to yoga class PT-OP-C Subjective Start: 12/23/18 11:09 Freq: Status: Active Protocol: Document 04/28/19 08:45 [facility] (Rec: 04/28/19 10:57 [facility] [id number]) OP-PT Subjective Patient Comments Patient Comments Pt reports doing better today but was limited with activity on the weekend d/t R hip being a litte aggrevated PT-OP-F Manual Assessment Start: 12/23/18 11:09 Freq: Status: Active Protocol: Document 12/24/18 14:37 [facility] (Rec: 12/24/18 15:20 [facility] [id number]) Manual Assessments Joint Mobility Assessment Joint Mobility Assessment R ant elevated innominate PT-OP-G Mobility & Gait Start: 12/23/18 11:09 Freq: Status: Active Protocol: Document 12/24/18 14:37 [facility] (Rec: 12/24/18 18:20 [facility] [id number]) OP Gait Assessment Comments Gait Comments Pt is primarily a leg walker with some transverse plane rotation but no appropriate pelvic patterns. PT-OP-J Posture/Palpation/Skin Start: 12/23/18 11:09 Freq: Status: Active Protocol: Document 03/12/19 14:30 [facility] (Rec: 03/12/19 14:47 [facility] [id number]) Posture Evaluation Aquiles Postural Classification System Elbow Flexion Test 3 Lumbar Protective Mechanism Left AP 2 Lumbar Protective Mechanism Right AP 2 Lumbar Protective Mechanism Left PA 1 Lumbar Protective Mechanism Right PA 1 PT-OP-K Range of Motion Start: 12/23/18 11:09 Freq: Status: Active Protocol: Document 03/20/19 15:15 [facility] (Rec: 03/20/19 15:29 [facility] [id number]) Knee Goniometric Range of Motion Knee Right Patient Position Supine Flexion Active (degrees) 135 Extension Active (degrees) 0 Left Patient Position Supine Flexion Active (degrees) 135 Extension Active (degrees) 0 PT-OP-L Special Tests Start: 12/23/18 11:09 Freq: Status: Active Protocol: Document 03/20/19 15:15 [facility] (Rec: 03/20/19 15:39 [facility] [id number]) Special Tests Knee Special Tests Eges Test Results possiblly positive for medial meniscus tear d/t pain in ER position w/squat Thessaly Test 5 Degrees Test Results neg B Varus- 25 Degrees Test Results neg B Valgus- 25 Degrees Test Results neg B Posterior Draw Test Results neg B Anterior Draw Test Results neg B PT-OP-M Strength Start: 12/23/18 11:09 Freq: Status: Active Protocol: Document 03/12/19 14:30 [facility] (Rec: 03/12/19 14:47 [facility] [id number]) Hip Strength Hip Manual Muscle Testing Left Flexion (L2) 4 Good Extension (S1) 4- Good- Abduction 4- Good- Adduction 5 Normal External Rotation 4+ Good+ Internal Rotation 4+ Good+ Right Flexion (L2) 4+ Good+ Extension (S1) 4 Good Abduction 4 Good Adduction 5 Normal External Rotation 4+ Good+ Internal Rotation 4+ Good+ Knee Strength Knee Manual Muscle Testing Left Extension (L3) 5 Normal Right Extension (L3) 5 Normal Ankle/Foot Strength Ankle and Foot Manual Muscle Testing Right Plantarflexion (S1) 5 Normal Left Plantarflexion (S1) 5 Normal PT-OP-Q Treatments Start: 12/23/18 11:09 Freq: Status: Active Protocol: Document 04/28/19 08:45 [facility] (Rec: 04/28/19 10:57 [facility] [id number]) Therapeutic Exercises Standing Exercises HS Standing Exercise Name stretch Side bilateral Reps/Minutes 30 sec TKE Side bilateral Equipment Used L3 Reps/Minutes 30 squat with lateral stepping Standing Exercise Name lat stepping 1x then side step w/squat Side bilateral Reps/Minutes 20ft ea hip flexor Standing Exercise Name stretch Side right Reps/Minutes 45 sec Gait Training Gait Activity step up Description up 6in down 6 in steps reciprocally Distance/Duration 5x Comments focus on wt shift Manual Therapy Treatment Soft Tissue Mobilization ant knee Mobilization Type Strumming Comments R med joint line L patellar tendon ITB Body Location ITB Mobilization Type Rolling,Strumming Intensity/Depth Moderate Body Position Supine Comments B 1 Body Location L Mobilization Type Rolling,Strumming Intensity/Depth Moderate Comments supine with knee flex & ext Joint Mobilizations patella Joint PF B Direction sup, inf, med PT-OP-R Modalities Start: 12/23/18 11:09 Freq: Status: Active Protocol: Document 12/26/18 10:20 [facility] (Rec: 12/26/18 12:02 [facility] [id number]) Hot Pack/Cold Pack Treatment Hot Pack Location lumbar & cervical Patient Position Hooklying Treatment Duration (minutes) 15 PT-OP-T Assessment and Plan Start: 12/23/18 11:09 Freq: Status: Active Protocol: Document 04/28/19 08:45 [facility] (Rec: 04/28/19 10:57 [facility] [id number]) Physical Therapy Assessment Goals stairs Impairment knee pain with stairs Short Term Goal (STG) Pt will be able to ascend and descend stairs with no inc in knee pain. STG Duration 04/19/2019 [employer] Goal (LTG) Pt will ascend and descend stairs with minimal gait deviations and no inc in pain in order to be able to fully access community. LTG Duration 05/20/2019 activity Short Term Goal (STG) Pt will be able to attend a yoga class without inc pain. 03/12/19: pt has been unable to attend d/t recent of father and being out of town STG Duration 03/12/19 [employer] Goal (LTG) Pt will be able to get up/down from the ground without reported difficulty. 03/12/19: progressing. able to get up easily with use of external support. slight dec stability w/o external support LTG Duration 04/23/19 ROM Mcc Goal (LTG) Pt will have full neck ROM allowing her to drive without difficutly. 03/12/19: ROM has nearly doubled in all planes, but pt is still limited in rotation bilaterally LTG Duration 04/23/19 strength Short Term Goal (STG) Pt will be indep with HEP. STG Duration goal met Mcc Goal (LTG) Pt will have 5/5 LE, UE strength, LPM, EFT & VCT to show improved core stability, postural alignment and allow her to do her recreational and daily activities without pain . 03/12/19: strength and postural improvements with all tests, but pt still has dec postural activations in some positions LTG Duration 04/23/19 Assessment Summary Assessment Pt required cueing with squatting for good kne eposition. Improved formw ith going up/down stairs with less cuieng. She has B ITB tightness and was insturcted to try rolling out with rolling pin at home. HEP stretches given. Physical Therapy Plan Frequency and Duration Frequency of Treatment 1-2x/wk Duration of Treatment 6 weeks Plan of Care Start Date 03/20/19 Plan of Care End Date 05/20/19 Next Visit Focus/Plan Next Note Type Treatment Note Next Visit Plan cont to work on hip stability strength
--- NOTE | 2019-04-30 10:59 | PT.OTN ---
Current Diagnoses Pain in right knee (04/30/19) Pain in left knee (04/30/19) Cervicalgia (04/30/19) Low back pain (04/30/19) Abnormal posture (04/30/19) Weakness (04/30/19) Physical Therapy Treatment Note PT-OP-A Visit Information Start: 12/23/18 11:09 Freq: Status: Active Protocol: Document 04/30/19 10:38 [facility] (Rec: 04/30/19 10:59 [facility] [id number]) Out-Patient Physical Therapy Visit Information Visit Information Visit Type Treatment Note Visit Start Time 09:45 Visit Stop Time 10:30 Total Visit Minutes 45 Visit Number 20 Number of UNEMPLOYMENT INSPECTOR Visits 0 PT-OP-B Current Condition Start: 12/23/18 11:09 Freq: Status: Active Protocol: Document 12/24/18 14:37 [facility] (Rec: 12/24/18 15:20 [facility] [id number]) Current Condition History of Current Condition Current Complaints LBP, neck pain, B knees History of Current Condition Pt reports about 2 months ago she was moving and was moving a box and her back started hurting. REports she has learned to compensate for it but she has difficulty with ADLs like bending over to put on socks. Pt reports d/t neck pain she has difficulty with turning her neck when driving. Pt reprots getting out of bed has been difficult on her back. Pt has been working on losing weight and has lost 35 lbs so far. She goes for a 45 min walk every morning and wants to start yoga class but is scared d/t back, neck and knee pain. She cannot kneel d/ t knee pain. Pt has history of knee pain B for 10 years. Pt reports neck doesn't hurt as much but is really stiff. Pt reports she has reduced kidney function (50 GFR), which limits her ability to take pain killers. Prior Treatments and Tests Xrays showing mild degeneragtion Treatment Goals Patient/Caregiver Goals Learn how to hold her body, strengthen back and knees to be able to go to yoga class PT-OP-C Subjective Start: 12/23/18 11:09 Freq: Status: Active Protocol: Document 04/30/19 10:38 [facility] (Rec: 04/30/19 10:59 [facility] [id number]) OP-PT Subjective Patient Comments Patient Comments Pt reports she is curious of neck ROM. Still feels stiff but back rarely gives her trouble. Has not noticed difficulty with up/down from ground PT-OP-F Manual Assessment Start: 12/23/18 11:09 Freq: Status: Active Protocol: Document 12/24/18 14:37 [facility] (Rec: 12/24/18 15:20 [facility] [id number]) Manual Assessments Joint Mobility Assessment Joint Mobility Assessment R ant elevated innominate PT-OP-G Mobility & Gait Start: 12/23/18 11:09 Freq: Status: Active Protocol: Document 12/24/18 14:37 [facility] (Rec: 12/24/18 18:20 [facility] [id number]) OP Gait Assessment Comments Gait Comments Pt is primarily a leg walker with some transverse plane rotation but no appropriate pelvic patterns. PT-OP-J Posture/Palpation/Skin Start: 12/23/18 11:09 Freq: Status: Active Protocol: Document 03/12/19 14:30 [facility] (Rec: 03/12/19 14:47 [facility] [id number]) Posture Evaluation Aquiles Postural Classification System Elbow Flexion Test 3 Lumbar Protective Mechanism Left AP 2 Lumbar Protective Mechanism Right AP 2 Lumbar Protective Mechanism Left PA 1 Lumbar Protective Mechanism Right PA 1 PT-OP-K Range of Motion Start: 12/23/18 11:09 Freq: Status: Active Protocol: Document 03/20/19 15:15 [facility] (Rec: 03/20/19 15:29 [facility] [id number]) Knee Goniometric Range of Motion Knee Right Patient Position Supine Flexion Active (degrees) 135 Extension Active (degrees) 0 Left Patient Position Supine Flexion Active (degrees) 135 Extension Active (degrees) 0 PT-OP-L Special Tests Start: 12/23/18 11:09 Freq: Status: Active Protocol: Document 03/20/19 15:15 [facility] (Rec: 03/20/19 15:39 [facility] [id number]) Special Tests Knee Special Tests Eges Test Results possiblly positive for medial meniscus tear d/t pain in ER position w/squat Thessaly Test 5 Degrees Test Results neg B Varus- 25 Degrees Test Results neg B Valgus- 25 Degrees Test Results neg B Posterior Draw Test Results neg B Anterior Draw Test Results neg B PT-OP-M Strength Start: 12/23/18 11:09 Freq: Status: Active Protocol: Document 03/12/19 14:30 [facility] (Rec: 03/12/19 14:47 [facility] [id number]) Hip Strength Hip Manual Muscle Testing Left Flexion (L2) 4 Good Extension (S1) 4- Good- Abduction 4- Good- Adduction 5 Normal External Rotation 4+ Good+ Internal Rotation 4+ Good+ Right Flexion (L2) 4+ Good+ Extension (S1) 4 Good Abduction 4 Good Adduction 5 Normal External Rotation 4+ Good+ Internal Rotation 4+ Good+ Knee Strength Knee Manual Muscle Testing Left Extension (L3) 5 Normal Right Extension (L3) 5 Normal Ankle/Foot Strength Ankle and Foot Manual Muscle Testing Right Plantarflexion (S1) 5 Normal Left Plantarflexion (S1) 5 Normal PT-OP-Q Treatments Start: 12/23/18 11:09 Freq: Status: Active Protocol: Document 04/30/19 10:38 [facility] (Rec: 04/30/19 10:59 [facility] [id number]) Therapeutic Activity Therapeutic Activity posture Name seated & standing Manual Therapy Treatment Soft Tissue Mobilization 1 Body Location L cervical paraspinals Mobilization Type Rolling,Strumming Intensity/Depth Moderate Joint Mobilizations cervical Joint C3 Direction transverse R FM thoracic Joint T1-2 Direction transverse R FM PT-OP-R Modalities Start: 12/23/18 11:09 Freq: Status: Active Protocol: Document 12/26/18 10:20 [facility] (Rec: 12/26/18 12:02 [facility] [id number]) Hot Pack/Cold Pack Treatment Hot Pack Location lumbar & cervical Patient Position Hooklying Treatment Duration (minutes) 15 PT-OP-T Assessment and Plan Start: 12/23/18 11:09 Freq: Status: Active Protocol: Document 04/30/19 10:38 [facility] (Rec: 04/30/19 10:59 [facility] [id number]) Physical Therapy Assessment Goals stairs Impairment knee pain with stairs Short Term Goal (STG) Pt will be able to ascend and descend stairs with no inc in knee pain. STG Duration 04/19/2019 Alf Goal (LTG) Pt will ascend and descend stairs with minimal gait deviations and no inc in pain in order to be able to fully access community. LTG Duration 05/20/2019 activity Short Term Goal (STG) Pt will be able to attend a yoga class without inc pain. 03/12/19: pt has been unable to attend d/t recent of father and being out of town STG Duration 03/12/19 Alf Goal (LTG) Pt will be able to get up/down from the ground without reported difficulty. 03/12/19: progressing. able to get up easily with use of external support. slight dec stability w/o external support LTG Duration 04/23/19 ROM Shellfish Harvester Goal (LTG) Pt will have full neck ROM allowing her to drive without difficutly. 03/12/19: ROM has nearly doubled in all planes, but pt is still limited in rotation bilaterally LTG Duration 04/23/19 strength Short Term Goal (STG) Pt will be indep with HEP. STG Duration goal met Shellfish Harvester Goal (LTG) Pt will have 5/5 LE, UE strength, LPM, EFT & VCT to show improved core stability, postural alignment and allow her to do her recreational and daily activities without pain . 03/12/19: strength and postural improvements with all tests, but pt still has dec postural activations in some positions LTG Duration 04/23/19 Assessment Summary Assessment Cervical ROM was basically unchanged since last measurement at start of session but it improved about 8 deg B when pt instructed on posture and 10 deg more to L after mobilizations. Pt had good PROM with R cervical rot but hard end feel which improved with mobilziations. Pt understood postural adjustment and noticed differences in her typical posture vs corrected. Physical Therapy Plan Frequency and Duration Frequency of Treatment 1-2x/wk Duration of Treatment 6 weeks Plan of Care Start Date 03/20/19 Plan of Care End Date 05/20/19 Next Visit Focus/Plan Next Note Type Treatment Note Next Visit Plan cont to work on hip stability strength & postural stability
--- NOTE | 2019-05-06 10:39 | PT.OTN ---
Current Diagnoses Pain in right knee (05/06/19) Pain in left knee (05/06/19) Cervicalgia (05/06/19) Low back pain (05/06/19) Abnormal posture (05/06/19) Weakness (05/06/19) Physical Therapy Treatment Note PT-OP-A Visit Information Start: 12/23/18 11:09 Freq: Status: Active Protocol: Document 05/06/19 09:42 [facility] (Rec: 05/06/19 10:39 [facility] [id number]) Out-Patient Physical Therapy Visit Information Visit Information Visit Type Treatment Note Visit Start Time 09:47 Visit Stop Time 10:30 Total Visit Minutes 43 Visit Number 21 PT-OP-B Current Condition Start: 12/23/18 11:09 Freq: Status: Active Protocol: Document 12/24/18 14:37 [facility] (Rec: 12/24/18 15:20 [facility] [id number]) Current Condition History of Current Condition Current Complaints LBP, neck pain, B knees History of Current Condition Pt reports about 2 months ago she was moving and was moving a box and her back started hurting. REports she has learned to compensate for it but she has difficulty with ADLs like bending over to put on socks. Pt reports d/t neck pain she has difficulty with turning her neck when driving. Pt reprots getting out of bed has been difficult on her back. Pt has been working on losing weight and has lost 35 lbs so far. She goes for a 45 min walk every morning and wants to start yoga class but is scared d/t back, neck and knee pain. She cannot kneel d/ t knee pain. Pt has history of knee pain B for 10 years. Pt reports neck doesn't hurt as much but is really stiff. Pt reports she has reduced kidney function (50 GFR), which limits her ability to take pain killers. Prior Treatments and Tests Xrays showing mild degeneragtion Treatment Goals Patient/Caregiver Goals Learn how to hold her body, strengthen back and knees to be able to go to yoga class PT-OP-C Subjective Start: 12/23/18 11:09 Freq: Status: Active Protocol: Document 05/06/19 09:42 [facility] (Rec: 05/06/19 10:39 [facility] [id number]) OP-PT Subjective Patient Comments Patient Comments Pt reports she has been busy and reports getting in exercises in only 2x since last session. PT-OP-F Manual Assessment Start: 12/23/18 11:09 Freq: Status: Active Protocol: Document 12/24/18 14:37 [facility] (Rec: 12/24/18 15:20 [facility] [id number]) Manual Assessments Joint Mobility Assessment Joint Mobility Assessment R ant elevated innominate PT-OP-G Mobility & Gait Start: 12/23/18 11:09 Freq: Status: Active Protocol: Document 12/24/18 14:37 [facility] (Rec: 12/24/18 18:20 [facility] [id number]) OP Gait Assessment Comments Gait Comments Pt is primarily a leg walker with some transverse plane rotation but no appropriate pelvic patterns. PT-OP-J Posture/Palpation/Skin Start: 12/23/18 11:09 Freq: Status: Active Protocol: Document 03/12/19 14:30 [facility] (Rec: 03/12/19 14:47 [facility] [id number]) Posture Evaluation Aquiles Postural Classification System Elbow Flexion Test 3 Lumbar Protective Mechanism Left AP 2 Lumbar Protective Mechanism Right AP 2 Lumbar Protective Mechanism Left PA 1 Lumbar Protective Mechanism Right PA 1 PT-OP-K Range of Motion Start: 12/23/18 11:09 Freq: Status: Active Protocol: Document 03/20/19 15:15 [facility] (Rec: 03/20/19 15:29 [facility] [id number]) Knee Goniometric Range of Motion Knee Right Patient Position Supine Flexion Active (degrees) 135 Extension Active (degrees) 0 Left Patient Position Supine Flexion Active (degrees) 135 Extension Active (degrees) 0 PT-OP-L Special Tests Start: 12/23/18 11:09 Freq: Status: Active Protocol: Document 03/20/19 15:15 [facility] (Rec: 03/20/19 15:39 [facility] [id number]) Special Tests Knee Special Tests Eges Test Results possiblly positive for medial meniscus tear d/t pain in ER position w/squat Thessaly Test 5 Degrees Test Results neg B Varus- 25 Degrees Test Results neg B Valgus- 25 Degrees Test Results neg B Posterior Draw Test Results neg B Anterior Draw Test Results neg B PT-OP-M Strength Start: 12/23/18 11:09 Freq: Status: Active Protocol: Document 03/12/19 14:30 [facility] (Rec: 03/12/19 14:47 [facility] [id number]) Hip Strength Hip Manual Muscle Testing Left Flexion (L2) 4 Good Extension (S1) 4- Good- Abduction 4- Good- Adduction 5 Normal External Rotation 4+ Good+ Internal Rotation 4+ Good+ Right Flexion (L2) 4+ Good+ Extension (S1) 4 Good Abduction 4 Good Adduction 5 Normal External Rotation 4+ Good+ Internal Rotation 4+ Good+ Knee Strength Knee Manual Muscle Testing Left Extension (L3) 5 Normal Right Extension (L3) 5 Normal Ankle/Foot Strength Ankle and Foot Manual Muscle Testing Right Plantarflexion (S1) 5 Normal Left Plantarflexion (S1) 5 Normal PT-OP-Q Treatments Start: 12/23/18 11:09 Freq: Status: Active Protocol: Document 05/06/19 09:42 [facility] (Rec: 05/06/19 10:39 [facility] [id number]) Gym Equipment Sport Cord step ups Exercise Details 5in Cord/Resistance red Reps/Duration fwd & side B 15 ea Therapeutic Exercises Supine Exercises figure 4 Supine Exercise Name opposite leg straight Side bilateral Reps/Minutes 30 sec Standing Exercises stretch Standing Exercise Name adductor & HS/calf stair stretch Side bilateral Reps/Minutes 30 sec squat with lateral stepping Standing Exercise Name lat stepping 2x then side step w/squat 1x Side bilateral Reps/Minutes 20ft each direction hip flexor Standing Exercise Name stretch Side bilateral Reps/Minutes 30 sec Gait Training Gait Activity step up Description up 6in down 6 in steps reciprocally Distance/Duration 3x Comments focus on wt shift Manual Therapy Treatment Soft Tissue Mobilization ITB Body Location ITB Mobilization Type Rolling,Strumming Intensity/Depth Moderate Body Position Supine Comments B 1 Body Location Lat border R lat quad Mobilization Type Rolling,Strumming Intensity/Depth Moderate PT-OP-R Modalities Start: 12/23/18 11:09 Freq: Status: Active Protocol: Document 12/26/18 10:20 [facility] (Rec: 12/26/18 12:02 [facility] [id number]) Hot Pack/Cold Pack Treatment Hot Pack Location lumbar & cervical Patient Position Hooklying Treatment Duration (minutes) 15 PT-OP-T Assessment and Plan Start: 12/23/18 11:09 Freq: Status: Active Protocol: Document 05/06/19 09:42 [facility] (Rec: 05/06/19 10:39 [facility] [id number]) Physical Therapy Assessment Goals stairs Impairment knee pain with stairs Short Term Goal (STG) Pt will be able to ascend and descend stairs with no inc in knee pain. STG Duration 04/19/2019 Machine Set Up Technician Goal (LTG) Pt will ascend and descend stairs with minimal gait deviations and no inc in pain in order to be able to fully access community. LTG Duration 05/20/2019 activity Short Term Goal (STG) Pt will be able to attend a yoga class without inc pain. 03/12/19: pt has been unable to attend d/t recent of father and being out of town STG Duration 03/12/19 Assisted Goal (LTG) Pt will be able to get up/down from the ground without reported difficulty. 03/12/19: progressing. able to get up easily with use of external support. slight dec stability w/o external support LTG Duration 04/23/19 ROM Assisted Goal (LTG) Pt will have full neck ROM allowing her to drive without difficutly. 03/12/19: ROM has nearly doubled in all planes, but pt is still limited in rotation bilaterally LTG Duration 04/23/19 strength Short Term Goal (STG) Pt will be indep with HEP. STG Duration goal met Machine Set Up Technician Goal (LTG) Pt will have 5/5 LE, UE strength, LPM, EFT & VCT to show improved core stability, postural alignment and allow her to do her recreational and daily activities without pain . 03/12/19: strength and postural improvements with all tests, but pt still has dec postural activations in some positions LTG Duration 04/23/19 Assessment Summary Assessment Pt able to improve stair form with cuieng for wt shift to wt acceptance. She is having greater ease with stairs at this time. Reviewed stretches for pt to cont to manage back, hip and knee pain. Physical Therapy Plan Frequency and Duration Frequency of Treatment 1-2x/wk Duration of Treatment 6 weeks Plan of Care Start Date 03/20/19 Plan of Care End Date 05/20/19 Next Visit Focus/Plan Next Note Type Treatment Note Next Visit Plan cont to work on hip stability strength & postural stability
--- NOTE | 2019-05-08 16:24 | PT.OTN ---
Current Diagnoses Pain in right knee (05/08/19) Pain in left knee (05/08/19) Cervicalgia (05/08/19) Low back pain (05/08/19) Abnormal posture (05/08/19) Weakness (05/08/19) Physical Therapy Treatment Note PT-OP-A Visit Information Start: 12/23/18 11:09 Freq: Status: Active Protocol: Document 05/08/19 16:19 [facility] (Rec: 05/08/19 16:24 [facility] [id number]) Out-Patient Physical Therapy Visit Information Visit Information Visit Type Treatment Note Visit Start Time 09:45 Visit Stop Time 10:38 Total Visit Minutes 53 Visit Number 22 PT-OP-B Current Condition Start: 12/23/18 11:09 Freq: Status: Active Protocol: Document 12/24/18 14:37 [facility] (Rec: 12/24/18 15:20 [facility] [id number]) Current Condition History of Current Condition Current Complaints LBP, neck pain, B knees History of Current Condition Pt reports about 2 months ago she was moving and was moving a box and her back started hurting. REports she has learned to compensate for it but she has difficulty with ADLs like bending over to put on socks. Pt reports d/t neck pain she has difficulty with turning her neck when driving. Pt reprots getting out of bed has been difficult on her back. Pt has been working on losing weight and has lost 35 lbs so far. She goes for a 45 min walk every morning and wants to start yoga class but is scared d/t back, neck and knee pain. She cannot kneel d/ t knee pain. Pt has history of knee pain B for 10 years. Pt reports neck doesn't hurt as much but is really stiff. Pt reports she has reduced kidney function (50 GFR), which limits her ability to take pain killers. Prior Treatments and Tests Xrays showing mild degeneragtion Treatment Goals Patient/Caregiver Goals Learn how to hold her body, strengthen back and knees to be able to go to yoga class PT-OP-C Subjective Start: 12/23/18 11:09 Freq: Status: Active Protocol: Document 05/08/19 16:19 [facility] (Rec: 05/08/19 16:24 [facility] [id number]) OP-PT Subjective Patient Comments Patient Comments Pt reports she would like to cont working on hips and knees . Notes inside of knee and groin area on R have been painful. PT-OP-F Manual Assessment Start: 12/23/18 11:09 Freq: Status: Active Protocol: Document 12/24/18 14:37 [facility] (Rec: 12/24/18 15:20 [facility] [id number]) Manual Assessments Joint Mobility Assessment Joint Mobility Assessment R ant elevated innominate PT-OP-G Mobility & Gait Start: 12/23/18 11:09 Freq: Status: Active Protocol: Document 12/24/18 14:37 [facility] (Rec: 12/24/18 18:20 [facility] [id number]) OP Gait Assessment Comments Gait Comments Pt is primarily a leg walker with some transverse plane rotation but no appropriate pelvic patterns. PT-OP-J Posture/Palpation/Skin Start: 12/23/18 11:09 Freq: Status: Active Protocol: Document 03/12/19 14:30 [facility] (Rec: 03/12/19 14:47 [facility] [id number]) Posture Evaluation Aquiles Postural Classification System Elbow Flexion Test 3 Lumbar Protective Mechanism Left AP 2 Lumbar Protective Mechanism Right AP 2 Lumbar Protective Mechanism Left PA 1 Lumbar Protective Mechanism Right PA 1 PT-OP-K Range of Motion Start: 12/23/18 11:09 Freq: Status: Active Protocol: Document 03/20/19 15:15 [facility] (Rec: 03/20/19 15:29 [facility] [id number]) Knee Goniometric Range of Motion Knee Right Patient Position Supine Flexion Active (degrees) 135 Extension Active (degrees) 0 Left Patient Position Supine Flexion Active (degrees) 135 Extension Active (degrees) 0 PT-OP-L Special Tests Start: 12/23/18 11:09 Freq: Status: Active Protocol: Document 03/20/19 15:15 [facility] (Rec: 03/20/19 15:39 [facility] [id number]) Special Tests Knee Special Tests Eges Test Results possiblly positive for medial meniscus tear d/t pain in ER position w/squat Thessaly Test 5 Degrees Test Results neg B Varus- 25 Degrees Test Results neg B Valgus- 25 Degrees Test Results neg B Posterior Draw Test Results neg B Anterior Draw Test Results neg B PT-OP-M Strength Start: 12/23/18 11:09 Freq: Status: Active Protocol: Document 03/12/19 14:30 [facility] (Rec: 03/12/19 14:47 [facility] [id number]) Hip Strength Hip Manual Muscle Testing Left Flexion (L2) 4 Good Extension (S1) 4- Good- Abduction 4- Good- Adduction 5 Normal External Rotation 4+ Good+ Internal Rotation 4+ Good+ Right Flexion (L2) 4+ Good+ Extension (S1) 4 Good Abduction 4 Good Adduction 5 Normal External Rotation 4+ Good+ Internal Rotation 4+ Good+ Knee Strength Knee Manual Muscle Testing Left Extension (L3) 5 Normal Right Extension (L3) 5 Normal Ankle/Foot Strength Ankle and Foot Manual Muscle Testing Right Plantarflexion (S1) 5 Normal Left Plantarflexion (S1) 5 Normal PT-OP-Q Treatments Start: 12/23/18 11:09 Freq: Status: Active Protocol: Document 05/08/19 16:19 [facility] (Rec: 05/08/19 16:24 [facility] [id number]) Therapeutic Exercises Standing Exercises squat with lateral stepping Standing Exercise Name lat stepping 1x then side step in squat 1x Side bilateral Reps/Minutes 20ft each direction Manual Therapy Treatment Soft Tissue Mobilization ITB Body Location ITB Mobilization Type Rolling,Strumming Intensity/Depth Moderate Body Position Supine Comments L 1 Body Location adductor R Mobilization Type Rolling,Strumming Intensity/Depth Moderate Joint Mobilizations TF Joint tib fem B Direction AP on tibia FM with slight IR patella Joint PF b Direction inf, sup, med hip Joint r Direction inf FM biased in IR PT-OP-R Modalities Start: 12/23/18 11:09 Freq: Status: Active Protocol: Document 12/26/18 10:20 [facility] (Rec: 12/26/18 12:02 [facility] [id number]) Hot Pack/Cold Pack Treatment Hot Pack Location lumbar & cervical Patient Position Hooklying Treatment Duration (minutes) 15 PT-OP-T Assessment and Plan Start: 12/23/18 11:09 Freq: Status: Active Protocol: Document 05/08/19 16:19 [facility] (Rec: 05/08/19 16:24 [facility] [id number]) Physical Therapy Assessment Goals stairs Impairment knee pain with stairs Short Term Goal (STG) Pt will be able to ascend and descend stairs with no inc in knee pain. STG Duration 04/19/2019 [facility] Goal (LTG) Pt will ascend and descend stairs with minimal gait deviations and no inc in pain in order to be able to fully access community. LTG Duration 05/20/2019 activity Short Term Goal (STG) Pt will be able to attend a yoga class without inc pain. 03/12/19: pt has been unable to attend d/t recent of father and being out of town STG Duration 03/12/19 Agricultural Commodities Inspector Goal (LTG) Pt will be able to get up/down from the ground without reported difficulty. 03/12/19: progressing. able to get up easily with use of external support. slight dec stability w/o external support LTG Duration 04/23/19 ROM [facility] Goal (LTG) Pt will have full neck ROM allowing her to drive without difficutly. 03/12/19: ROM has nearly doubled in all planes, but pt is still limited in rotation bilaterally LTG Duration 04/23/19 strength Short Term Goal (STG) Pt will be indep with HEP. STG Duration goal met [facility] Goal (LTG) Pt will have 5/5 LE, UE strength, LPM, EFT & VCT to show improved core stability, postural alignment and allow her to do her recreational and daily activities without pain . 03/12/19: strength and postural improvements with all tests, but pt still has dec postural activations in some positions LTG Duration 04/23/19 Assessment Summary Assessment Pt reported dec pain in R knee with treatment. Likely adductor tightness is creating some pain in both R hip and knee with mobility. side stepping cont to be difficult for pt but improved form today . Physical Therapy Plan Frequency and Duration Frequency of Treatment 1-2x/wk Duration of Treatment 6 weeks Plan of Care Start Date 03/20/19 Plan of Care End Date 05/20/19 Next Visit Focus/Plan Next Note Type Treatment Note Next Visit Plan cont to work on hip stability strength & postural stability
--- NOTE | 2019-05-15 10:32 | PT.OTN ---
Current Diagnoses Pain in right knee (05/15/19) Pain in left knee (05/15/19) Cervicalgia (05/15/19) Low back pain (05/15/19) Abnormal posture (05/15/19) Weakness (05/15/19) Physical Therapy Treatment Note PT-OP-A Visit Information Start: 12/23/18 11:09 Freq: Status: Active Protocol: Document 05/15/19 07:40 [facility] (Rec: 05/15/19 10:32 [facility] [id number]) Out-Patient Physical Therapy Visit Information Visit Information Visit Type Treatment Note Visit Start Time 07:30 Visit Stop Time 08:12 Total Visit Minutes 42 Visit Number 23 PT-OP-B Current Condition Start: 12/23/18 11:09 Freq: Status: Active Protocol: Document 12/24/18 14:37 [facility] (Rec: 12/24/18 15:20 [facility] [id number]) Current Condition History of Current Condition Current Complaints LBP, neck pain, B knees History of Current Condition Pt reports about 2 months ago she was moving and was moving a box and her back started hurting. REports she has learned to compensate for it but she has difficulty with ADLs like bending over to put on socks. Pt reports d/t neck pain she has difficulty with turning her neck when driving. Pt reprots getting out of bed has been difficult on her back. Pt has been working on losing weight and has lost 35 lbs so far. She goes for a 45 min walk every morning and wants to start yoga class but is scared d/t back, neck and knee pain. She cannot kneel d/ t knee pain. Pt has history of knee pain B for 10 years. Pt reports neck doesn't hurt as much but is really stiff. Pt reports she has reduced kidney function (50 GFR), which limits her ability to take pain killers. Prior Treatments and Tests Xrays showing mild degeneragtion Treatment Goals Patient/Caregiver Goals Learn how to hold her body, strengthen back and knees to be able to go to yoga class PT-OP-C Subjective Start: 12/23/18 11:09 Freq: Status: Active Protocol: Document 05/15/19 07:40 [facility] (Rec: 05/15/19 10:32 [facility] [id number]) OP-PT Subjective Patient Comments Patient Comments Pt reports going to yoga and accidently did flow yoga but did ok. Difficulty sitting crosslegged and with arm strength exercises. Pt reports she also accidently walked 10 miles yesterday. Notes knees were sore a little after PT-OP-F Manual Assessment Start: 12/23/18 11:09 Freq: Status: Active Protocol: Document 12/24/18 14:37 [facility] (Rec: 12/24/18 15:20 [facility] [id number]) Manual Assessments Joint Mobility Assessment Joint Mobility Assessment R ant elevated innominate PT-OP-G Mobility & Gait Start: 12/23/18 11:09 Freq: Status: Active Protocol: Document 12/24/18 14:37 [facility] (Rec: 12/24/18 18:20 [facility] [id number]) OP Gait Assessment Comments Gait Comments Pt is primarily a leg walker with some transverse plane rotation but no appropriate pelvic patterns. PT-OP-J Posture/Palpation/Skin Start: 12/23/18 11:09 Freq: Status: Active Protocol: Document 03/12/19 14:30 [facility] (Rec: 03/12/19 14:47 [facility] [id number]) Posture Evaluation Aquiles Postural Classification System Elbow Flexion Test 3 Lumbar Protective Mechanism Left AP 2 Lumbar Protective Mechanism Right AP 2 Lumbar Protective Mechanism Left PA 1 Lumbar Protective Mechanism Right PA 1 PT-OP-K Range of Motion Start: 12/23/18 11:09 Freq: Status: Active Protocol: Document 03/20/19 15:15 [facility] (Rec: 03/20/19 15:29 [facility] [id number]) Knee Goniometric Range of Motion Knee Right Patient Position Supine Flexion Active (degrees) 135 Extension Active (degrees) 0 Left Patient Position Supine Flexion Active (degrees) 135 Extension Active (degrees) 0 PT-OP-L Special Tests Start: 12/23/18 11:09 Freq: Status: Active Protocol: Document 03/20/19 15:15 [facility] (Rec: 03/20/19 15:39 [facility] [id number]) Special Tests Knee Special Tests Eges Test Results possiblly positive for medial meniscus tear d/t pain in ER position w/squat Thessaly Test 5 Degrees Test Results neg B Varus- 25 Degrees Test Results neg B Valgus- 25 Degrees Test Results neg B Posterior Draw Test Results neg B Anterior Draw Test Results neg B PT-OP-M Strength Start: 12/23/18 11:09 Freq: Status: Active Protocol: Document 03/12/19 14:30 [facility] (Rec: 03/12/19 14:47 [facility] [id number]) Hip Strength Hip Manual Muscle Testing Left Flexion (L2) 4 Good Extension (S1) 4- Good- Abduction 4- Good- Adduction 5 Normal External Rotation 4+ Good+ Internal Rotation 4+ Good+ Right Flexion (L2) 4+ Good+ Extension (S1) 4 Good Abduction 4 Good Adduction 5 Normal External Rotation 4+ Good+ Internal Rotation 4+ Good+ Knee Strength Knee Manual Muscle Testing Left Extension (L3) 5 Normal Right Extension (L3) 5 Normal Ankle/Foot Strength Ankle and Foot Manual Muscle Testing Right Plantarflexion (S1) 5 Normal Left Plantarflexion (S1) 5 Normal PT-OP-Q Treatments Start: 12/23/18 11:09 Freq: Status: Active Protocol: Document 05/15/19 07:40 [facility] (Rec: 05/15/19 10:32 [facility] [id number]) Therapeutic Exercises Supine Exercises figure 4 Supine Exercise Name opposite leg straight Side bilateral Reps/Minutes 30 sec SKTC Supine Exercise Name tried piriformis stretch but painful in ant hip Prone Exercises hip ER Side right Equipment Used L1 Reps/Minutes 10 Sitting Exercises figure 4 Side right Reps/Minutes 30 sec Standing Exercises hip flexor Standing Exercise Name stretch Side right Reps/Minutes 30 sec Manual Therapy Treatment Joint Mobilizations SI Joint R innominate Direction flex FM hip Joint r Direction inf FM biased in er, hip on axis ER FM Self-Care/Home Management Treatment Education Other Education rolling on tennis ball, discussed how movement before going down stairs in AM may help to dec knee pain. PT-OP-R Modalities Start: 12/23/18 11:09 Freq: Status: Active Protocol: Document 12/26/18 10:20 [facility] (Rec: 12/26/18 12:02 [facility] [id number]) Hot Pack/Cold Pack Treatment Hot Pack Location lumbar & cervical Patient Position Hooklying Treatment Duration (minutes) 15 PT-OP-T Assessment and Plan Start: 12/23/18 11:09 Freq: Status: Active Protocol: Document 05/15/19 07:40 [facility] (Rec: 05/15/19 10:32 [facility] [id number]) Physical Therapy Assessment Goals stairs Impairment knee pain with stairs Short Term Goal (STG) Pt will be able to ascend and descend stairs with no inc in knee pain. STG Duration 04/19/2019 Joy Operator Helper Goal (LTG) Pt will ascend and descend stairs with minimal gait deviations and no inc in pain in order to be able to fully access community. LTG Duration 05/20/2019 activity Short Term Goal (STG) Pt will be able to attend a yoga class without inc pain. 03/12/19: pt has been unable to attend d/t recent of father and being out of town STG Duration 03/12/19 Joy Operator Helper Goal (LTG) Pt will be able to get up/down from the ground without reported difficulty. 03/12/19: progressing. able to get up easily with use of external support. slight dec stability w/o external support LTG Duration 04/23/19 ROM Joy Operator Helper Goal (LTG) Pt will have full neck ROM allowing her to drive without difficutly. 03/12/19: ROM has nearly doubled in all planes, but pt is still limited in rotation bilaterally LTG Duration 04/23/19 strength Short Term Goal (STG) Pt will be indep with HEP. STG Duration goal met Joy Operator Helper Goal (LTG) Pt will have 5/5 LE, UE strength, LPM, EFT & VCT to show improved core stability, postural alignment and allow her to do her recreational and daily activities without pain . 03/12/19: strength and postural improvements with all tests, but pt still has dec postural activations in some positions LTG Duration 04/23/19 Assessment Summary Assessment Pt's lack of hip mobility was affecting knee pressure in gloria cross position and is likely affecting pt's femoral position in standing also. After manual work, pt had dec pain and improved ability to sit in gloria cross position. She was given exercises to cont tow ork on this. Physical Therapy Plan Frequency and Duration Frequency of Treatment 1-2x/wk Duration of Treatment 6 weeks Plan of Care Start Date 03/20/19 Plan of Care End Date 05/20/19 Next Visit Focus/Plan Next Note Type Treatment Note Next Visit Plan cont to work on hip stability strength & postural stability and ability to participate in yoga and stairs
--- NOTE | 2019-06-02 13:58 | PT.OTN ---
Current Diagnoses Pain in right knee (06/02/19) Pain in left knee (06/02/19) Cervicalgia (06/02/19) Low back pain (06/02/19) Abnormal posture (06/02/19) Weakness (06/02/19) Physical Therapy Treatment Note PT-OP-A Visit Information Start: 12/23/18 11:09 Freq: Status: Active Protocol: Document 06/02/19 10:46 [facility] (Rec: 06/02/19 13:35 [facility] [id number]) Out-Patient Physical Therapy Visit Information Visit Information Visit Type Progress Note Visit Start Time 10:46 Visit Stop Time 11:16 Total Visit Minutes 30 Visit Number 24 Number of SUPERVISOR [employer]SFERRING [employer]OXING Visits 0 PT-OP-B Current Condition Start: 12/23/18 11:09 Freq: Status: Active Protocol: Document 12/24/18 14:37 [facility] (Rec: 12/24/18 15:20 [facility] [id number]) Current Condition History of Current Condition Current Complaints LBP, neck pain, B knees History of Current Condition Pt reports about 2 months ago she was moving and was moving a box and her back started hurting. REports she has learned to compensate for it but she has difficulty with ADLs like bending over to put on socks. Pt reports d/t neck pain she has difficulty with turning her neck when driving. Pt reprots getting out of bed has been difficult on her back. Pt has been working on losing weight and has lost 35 lbs so far. She goes for a 45 min walk every morning and wants to start yoga class but is scared d/t back, neck and knee pain. She cannot kneel d/ t knee pain. Pt has history of knee pain B for 10 years. Pt reports neck doesn't hurt as much but is really stiff. Pt reports she has reduced kidney function (50 GFR), which limits her ability to take pain killers. Prior Treatments and Tests Xrays showing mild degeneragtion Treatment Goals Patient/Caregiver Goals Learn how to hold her body, strengthen back and knees to be able to go to yoga class PT-OP-C Subjective Start: 12/23/18 11:09 Freq: Status: Active Protocol: Document 06/02/19 10:46 [facility] (Rec: 06/02/19 13:35 [facility] [email or web address]) OP-PT Subjective Patient Comments Patient Comments Pt reports that she is still having trouble with sitting with her legs crossed in yoga. She has had an easier time with going up/down stairs and she is able to get up from the floor much better PT-OP-F Manual Assessment Start: 12/23/18 11:09 Freq: Status: Active Protocol: Document 12/24/18 14:37 [facility] (Rec: 12/24/18 15:20 [facility] [id number]) Manual Assessments Joint Mobility Assessment Joint Mobility Assessment R ant elevated innominate PT-OP-G Mobility & Gait Start: 12/23/18 11:09 Freq: Status: Active Protocol: Document 12/24/18 14:37 [facility] (Rec: 12/24/18 18:20 [facility] [id number]) OP Gait Assessment Comments Gait Comments Pt is primarily a leg walker with some transverse plane rotation but no appropriate pelvic patterns. PT-OP-J Posture/Palpation/Skin Start: 12/23/18 11:09 Freq: Status: Active Protocol: Document 06/02/19 10:46 [facility] (Rec: 06/02/19 13:35 [facility] [email or web address]) Posture Evaluation Aquiles Postural Classification System Elbow Flexion Test 1 Lumbar Protective Mechanism Left AP 3 Lumbar Protective Mechanism Right AP 1 Lumbar Protective Mechanism Left PA 1 Lumbar Protective Mechanism Right PA 3 PT-OP-K Range of Motion Start: 12/23/18 11:09 Freq: Status: Active Protocol: Document 06/02/19 10:46 [facility] (Rec: 06/02/19 13:36 [facility] [email or web address]) Cervical Spine Range of Motion Cervical Spine Active Degrees Testing Position Sitting Flexion 47 Extension 52 Rotation Left 48 Rotation Right 49 Lateral Flexion Left 27 Lateral Flexion Right 29 PT-OP-L Special Tests Start: 12/23/18 11:09 Freq: Status: Active Protocol: Document 03/20/19 15:15 [facility] (Rec: 03/20/19 15:39 [facility] [id number]) Special Tests Knee Special Tests Eges Test Results possiblly positive for medial meniscus tear d/t pain in ER position w/squat Thessaly Test 5 Degrees Test Results neg B Varus- 25 Degrees Test Results neg B Valgus- 25 Degrees Test Results neg B Posterior Draw Test Results neg B Anterior Draw Test Results neg B PT-OP-M Strength Start: 12/23/18 11:09 Freq: Status: Active Protocol: Document 06/02/19 10:46 [facility] (Rec: 06/02/19 13:35 [facility] [email or web address]) Hip Strength Hip Manual Muscle Testing Left Flexion (L2) 4 Good Extension (S1) 4 Good Abduction 3+ Fair+ External Rotation 4 Good Internal Rotation 4 Good Right Flexion (L2) 5 Normal Extension (S1) 3+ Fair+ Abduction 4+ Good+ External Rotation 4+ Good+ Internal Rotation 4 Good PT-OP-Q Treatments Start: 12/23/18 11:09 Freq: Status: Active Protocol: Document 06/02/19 10:46 [facility] (Rec: 06/02/19 13:35 [facility] [email or web address]) Manual Therapy Treatment Soft Tissue Mobilization 1 Body Location R hip flexors Mobilization Type Rolling,Strumming,Sustained Pressure Intensity/Depth Moderate Body Position supine in figure 4 Comments with contract relax of internal rotators PT-OP-R Modalities Start: 12/23/18 11:09 Freq: Status: Active Protocol: Document 12/26/18 10:20 [facility] (Rec: 12/26/18 12:02 [facility] [id number]) Hot Pack/Cold Pack Treatment Hot Pack Location lumbar & cervical Patient Position Hooklying Treatment Duration (minutes) 15 PT-OP-T Assessment and Plan Start: 12/23/18 11:09 Freq: Status: Active Protocol: Document 06/02/19 10:46 [facility] (Rec: 06/02/19 13:35 [facility] [email or web address]) Physical Therapy Assessment Goals stairs Impairment knee pain with stairs Short Term Goal (STG) Pt will be able to ascend and descend stairs with no inc in knee pain. STG Duration achieved Library Media Technician Goal (LTG) Pt will ascend and descend stairs with minimal gait deviations and no inc in pain in order to be able to fully access community. LTG Duration achieved activity Short Term Goal (STG) Pt will be able to attend a yoga class without inc pain. 03/12/19: pt has been unable to attend d/t recent of father and being out of town STG Duration achieved Library Media Technician Goal (LTG) Pt will be able to get up/down from the ground without reported difficulty. 03/12/19: progressing. able to get up easily with use of external support. slight dec stability w/o external support LTG Duration achieved ROM [facility] Goal (LTG) Pt will have full neck ROM allowing her to drive without difficutly. 03/12/19: ROM has nearly doubled in all planes, but pt is still limited in rotation bilaterally 06/02/19: neck ROM continues to progress but is still limited bilaterally LTG Duration 07/02/19 strength Short Term Goal (STG) Pt will be indep with HEP. STG Duration goal met [facility] Goal (LTG) Pt will have 5/5 LE, UE strength, LPM, EFT & VCT to show improved core stability, postural alignment and allow her to do her recreational and daily activities without pain . 03/12/19: strength and postural improvements with all tests, but pt still has dec postural activations in some positions 06/02/19: pt has some improvement with certain postural tests, but continues to be limited in activation and postural stability LTG Duration 07/02/19 Progress Towards Goals Progress Towards Goals Progressing Toward Goals Progress Comments Pt is cnotinuing to progress with her goals. She has mostly met her functional goals of stairs and getting up from the floor without aggravating her symptoms. She has not yet met her goals for neck ROM or for hip strength yet, but is making gains towards those goals Assessment Summary Assessment Reviewed pt's porgress toward goals. She is progressing in her functional goals of stair climbing and getting up from floor without increase in pain . She continues to be limited in hip strength, postureal strength, and neck ROM. Discussed with pt about discharge from PT to continue to work on these deficits with an HEP. Pt was agreeable to this. Pt was able to sit with her legs crossed after STM of her hip flexors. Physical Therapy Plan Frequency and Duration Frequency of Treatment 1-2x/wk Duration of Treatment 1 month Plan of Care Start Date 06/02/19 Plan of Care End Date 07/02/19 Next Visit Focus/Plan Next Note Type Discharge Summary Next Visit Plan review HEP wt emphasis on progressing core exercises
--- NOTE | 2019-06-12 13:00 | PT.OTN ---
Current Diagnoses Pain in right knee (06/12/19) Pain in left knee (06/12/19) Cervicalgia (06/12/19) Low back pain (06/12/19) Abnormal posture (06/12/19) Weakness (06/12/19) Physical Therapy Treatment Note PT-OP-A Visit Information Start: 12/23/18 11:09 Freq: Status: Active Protocol: Document 06/12/19 09:40 [facility] (Rec: 06/12/19 12:59 [facility] [id number]) Out-Patient Physical Therapy Visit Information Visit Information Visit Type Discharge Summary Visit Start Time 10:30 Visit Stop Time 11:10 Total Visit Minutes 40 Visit Number 25 Number of RETORT OPERATOR Visits 0 PT-OP-B Current Condition Start: 12/23/18 11:09 Freq: Status: Active Protocol: Document 12/24/18 14:37 [facility] (Rec: 12/24/18 15:20 [facility] [id number]) Current Condition History of Current Condition Current Complaints LBP, neck pain, B knees History of Current Condition Pt reports about 2 months ago she was moving and was moving a box and her back started hurting. REports she has learned to compensate for it but she has difficulty with ADLs like bending over to put on socks. Pt reports d/t neck pain she has difficulty with turning her neck when driving. Pt reprots getting out of bed has been difficult on her back. Pt has been working on losing weight and has lost 35 lbs so far. She goes for a 45 min walk every morning and wants to start yoga class but is scared d/t back, neck and knee pain. She cannot kneel d/ t knee pain. Pt has history of knee pain B for 10 years. Pt reports neck doesn't hurt as much but is really stiff. Pt reports she has reduced kidney function (50 GFR), which limits her ability to take pain killers. Prior Treatments and Tests Xrays showing mild degeneragtion Treatment Goals Patient/Caregiver Goals Learn how to hold her body, strengthen back and knees to be able to go to yoga class PT-OP-C Subjective Start: 12/23/18 11:09 Freq: Status: Active Protocol: Document 06/12/19 09:40 [facility] (Rec: 06/12/19 12:59 [facility] [id number]) OP-PT Subjective Patient Comments Patient Comments compliance w/hep Patient Reported Progress Improving PT-OP-F Manual Assessment Start: 12/23/18 11:09 Freq: Status: Active Protocol: Document 12/24/18 14:37 [facility] (Rec: 12/24/18 15:20 [facility] [id number]) Manual Assessments Joint Mobility Assessment Joint Mobility Assessment R ant elevated innominate PT-OP-G Mobility & Gait Start: 12/23/18 11:09 Freq: Status: Active Protocol: Document 12/24/18 14:37 [facility] (Rec: 12/24/18 18:20 [facility] [id number]) OP Gait Assessment Comments Gait Comments Pt is primarily a leg walker with some transverse plane rotation but no appropriate pelvic patterns. PT-OP-J Posture/Palpation/Skin Start: 12/23/18 11:09 Freq: Status: Active Protocol: Document 06/12/19 09:40 [facility] (Rec: 06/12/19 12:59 [facility] [id number]) Posture Evaluation Aquiles Postural Classification System Vertebral Compression Test 4 Elbow Flexion Test 5 Lumbar Protective Mechanism Left AP 4 Lumbar Protective Mechanism Right AP 4 Lumbar Protective Mechanism Left PA 5 Lumbar Protective Mechanism Right PA 5 PT-OP-K Range of Motion Start: 12/23/18 11:09 Freq: Status: Active Protocol: Document 06/02/19 10:46 [facility] (Rec: 06/02/19 13:36 [facility] [id number]) Cervical Spine Range of Motion Cervical Spine Active Degrees Testing Position Sitting Flexion 47 Extension 52 Rotation Left 48 Rotation Right 49 Lateral Flexion Left 27 Lateral Flexion Right 29 PT-OP-L Special Tests Start: 12/23/18 11:09 Freq: Status: Active Protocol: Document 03/20/19 15:15 [facility] (Rec: 03/20/19 15:39 [facility] [id number]) Special Tests Knee Special Tests Eges Test Results possiblly positive for medial meniscus tear d/t pain in ER position w/squat Thessaly Test 5 Degrees Test Results neg B Varus- 25 Degrees Test Results neg B Valgus- 25 Degrees Test Results neg B Posterior Draw Test Results neg B Anterior Draw Test Results neg B PT-OP-M Strength Start: 12/23/18 11:09 Freq: Status: Active Protocol: Document 06/02/19 10:46 [facility] (Rec: 06/02/19 13:35 [facility] [id number]) Hip Strength Hip Manual Muscle Testing Left Flexion (L2) 4 Good Extension (S1) 4 Good Abduction 3+ Fair+ External Rotation 4 Good Internal Rotation 4 Good Right Flexion (L2) 5 Normal Extension (S1) 3+ Fair+ Abduction 4+ Good+ External Rotation 4+ Good+ Internal Rotation 4 Good PT-OP-Q Treatments Start: 12/23/18 11:09 Freq: Status: Active Protocol: Document 06/12/19 09:40 [facility] (Rec: 06/12/19 12:59 [facility] [id number]) Therapeutic Exercises Supine Exercises cristine test Supine Exercise Name stretch Side bilateral Reps/Minutes 30 sec Standing Exercises stretch Standing Exercise Name hip flexor & HS stretch Side bilateral Reps/Minutes 30 sec lunges Standing Exercise Name mini lunges Side bilateral Equipment Used hand on table for balance Reps/Minutes 8 ea Comments focus on hip posiiton wall posture Standing Exercise Name w/90/90 ER Side bilateral Reps/Minutes 15 Manual Therapy Treatment Soft Tissue Mobilization 1 Body Location R adductors Mobilization Type Rolling,Strumming,Sustained Pressure Intensity/Depth Moderate Body Position supine in figure 4 Joint Mobilizations hip Joint R Direction inf & ant glides PT-OP-R Modalities Start: 12/23/18 11:09 Freq: Status: Active Protocol: Document 12/26/18 10:20 [facility] (Rec: 12/26/18 12:02 [facility] [id number]) Hot Pack/Cold Pack Treatment Hot Pack Location lumbar & cervical Patient Position Hooklying Treatment Duration (minutes) 15 PT-OP-T Assessment and Plan Start: 12/23/18 11:09 Freq: Status: Active Protocol: Document 06/12/19 09:40 [facility] (Rec: 06/12/19 12:59 [facility] [id number]) Physical Therapy Assessment Goals stairs Impairment knee pain with stairs Short Term Goal (STG) Pt will be able to ascend and descend stairs with no inc in knee pain. STG Duration achieved Staffing Coordinator Goal (LTG) Pt will ascend and descend stairs with minimal gait deviations and no inc in pain in order to be able to fully access community. LTG Duration achieved activity Short Term Goal (STG) Pt will be able to attend a yoga class without inc pain. 03/12/19: pt has been unable to attend d/t recent of father and being out of town STG Duration achieved Halfway Goal (LTG) Pt will be able to get up/down from the ground without reported difficulty. 03/12/19: progressing. able to get up easily with use of external support. slight dec stability w/o external support LTG Duration achieved ROM Staffing Coordinator Goal (LTG) Pt will have full neck ROM allowing her to drive without difficutly. 03/12/19: ROM has nearly doubled in all planes, but pt is still limited in rotation bilaterally 06/02/19: neck ROM continues to progress but is still limited bilaterally LTG Duration WFL for driving per pt strength Short Term Goal (STG) Pt will be indep with HEP. STG Duration goal met Staffing Coordinator Goal (LTG) Pt will have 5/5 LE, UE strength, LPM, EFT & VCT to show improved core stability, postural alignment and allow her to do her recreational and daily activities without pain . 03/12/19: strength and postural improvements with all tests, but pt still has dec postural activations in some positions 06/02/19: pt has some improvement with certain postural tests, but continues to be limited in activation and postural stability LTG Duration 07/02/19 Assessment Summary Assessment Pt has progressed well with therapy and is to continue with HEP to continue to strengthen and improve ROM. She is now able to do stairs, get up/down from the ground without difficulty. She had improved abilityt o sit in gloria cross positiona fter treatment today. Pt indep with HEP and released to [facility] to work on indep. Physical Therapy Plan Discharge Physical Therapy Discharge Reasons Goals Met
== END 2019-08-21 13:26 ==
LOC: PHYS 10:30
PROVIDERS: PCP Family Medicine; Visit Provider Family Medicine
DX: M54.2 Cervicalgia (principal); M54.5 Low back pain; R53.1 Weakness; R29.3 Abnormal posture; M25.561 Pain in right knee; M25.562 Pain in left knee
CPT/HCPCS: 97010; 97110; 97112; 97116; 97140; 97162; 97164; 97530; 97535

== ENCOUNTER → 2019-06-23 16:05 | Outpatient (CLI) | payer OTHER, SELFPAY ==
[2019-06-23 16:38] LABS: Add Manual Diff / Slide Review NO; Basophils Absolute Auto 0 /uL (0-100); Basophils Percent Auto 0.7 % (0-2); Eosinophils Absolute Auto 100 /uL (0-450); Eosinophils Percent Auto 1.8 % (2-4); Hematocrit 39.4 % (36-46); Hemoglobin 13.5 g/dL (12.0-16.0); Lymphocytes Absolute Auto 1700 /uL (1100-4500); Lymphocytes Percent Auto 29.7 % (25-40); Mean Corpuscular HGB Conc 34.2 % (30-36); Mean Corpuscular Hemoglobin 30.6 PG (26-34); Mean Corpuscular Volume 89.4 fL (80-100); Monocytes Absolute Auto 400 /uL (0-900); Monocytes Percent Auto 6.2 % (3-14); Neutrophils Absolute Auto 3500 /uL (1500-7000); Neutrophils Percent Auto 61.6 % (50-75); Platelet Count 238 X10^3/uL (150-400); Red Blood Cell Count 4.41 X10^6/uL (4.0-5.2); White Blood Cell Count 5.7 X10^3/uL (4.5-11.0)
[2019-06-23 17:11] LABS: Alanine Aminotransferase 34 IU/L (<35); Albumin 4.7 g/dL (3.5-5.0); Alkaline Phosphatase 75 U/L (38-126); Aspartate Aminotransferase 31 IU/L (14-36); BUN Creatinine Ratio 13.1 (6-22); Bilirubin Total 0.8 mg/dL (0.2-1.3); Blood Urea Nitrogen 17 mg/dL (7-17); Calcium 10.3 mg/dL (8.4-10.2); Carbon Dioxide 28 mmol/L (22-32); Chloride 101 mmol/L (98-107); Estimated Glomerular Filt Rate 41.2 mL/min (>60); Globulin 2.3 g/dL (1.7-4.1); Glucose 106 mg/dL (80-110); HEMOLYSIS < 15 (0-50); Lipase 143 U/L (23-300); Potassium 3.9 mmol/L (3.4-5.1); Sodium 140 mmol/L (137-145)
[2019-06-23 17:13] LABS: C-Reactive Protein Quant < 0.5 mg/dL (<1.0)
[2019-06-23 17:17] LABS: Bacteria Urine None Seen; RBC Urine None Seen (0-5/HPF)
[2019-06-23 17:56] LABS: Appearance Urine UA CLEAR; Bilirubin Urine UA NEGATIVE (NEGATIVE); Color Urine UA YELLOW; Glucose Urine UA NEGATIVE (Negative); Ketones Urine UA NEGATIVE (NEGATIVE); Leukocyte Esterase Urine UA NEGATIVE (NEGATIVE); Nitrite Urine UA NEGATIVE (Negative); Occult Blood Urine UA NEGATIVE (Negative); Protein Urine UA NEGATIVE (Negative); Specific Gravity Urine UA <=1.005 (1.000-1.035); Urobilinogen Urine UA 0.2 E.U./dL (0.2)
[2019-06-23 18:05] LABS: Culture Indicated Urine Cult Not Indicated; Squamous Epithelial Cell Urine 0-1 /HPF (0-5/HPF); WBC Urine 0-1/HPF (0-5/HPF)
== END ==
PROVIDERS: Family Provider Family Medicine; PCP Family Medicine; Visit Provider Internal Medicine
DX: R10.32 Left lower quadrant pain (principal); R10.9 Unspecified abdominal pain
CPT/HCPCS: 36415; 80053; 81001; 83690; 85025; 86140

== ENCOUNTER → 2019-08-18 07:31 | Outpatient (CLI) | payer OTHER, SELFPAY ==
[2019-08-18 08:48] LABS: Alanine Aminotransferase 26 IU/L (<35); Albumin 4.7 g/dL (3.5-5.0); Albumin Globulin Ratio 1.7 (1.0-2.8); Alkaline Phosphatase 66 U/L (38-126); Aspartate Aminotransferase 25 IU/L (14-36); BUN Creatinine Ratio 15.4 (6-22); Bilirubin Total 0.5 mg/dL (0.2-1.3); Blood Urea Nitrogen 20 mg/dL (7-17); Calcium 10.4 mg/dL (8.4-10.2); Carbon Dioxide 27 mmol/L (22-32); Chloride 103 mmol/L (98-107); Cholesterol 154 mg/dL (140-199); Estimated Glomerular Filt Rate 41.2 mL/min (>60); Globulin 2.8 g/dL (1.7-4.1); Glucose 96 mg/dL (80-110); HDL Cholesterol 43 mg/dL (40-60); HEMOLYSIS < 15 (0-50); LDL Cholesterol Calculated 86 mg/dL (<100); Potassium 4.2 mmol/L (3.4-5.1); Sodium 141 mmol/L (137-145); Total Protein 7.5 g/dL (6.3-8.2); Triglycerides 126 mg/dL (35-150)
[2019-08-18 08:53] LABS: Hemoglobin A1C% w Est Avg Glu 5.3 % (4.0-6.0)
== END ==
PROVIDERS: Family Provider Family Medicine; PCP Internal Medicine; Referring Provider Internal Medicine; Visit Provider Internal Medicine
DX: E03.9 Hypothyroidism, unspecified (principal); E11.65 Type 2 diabetes mellitus with hyperglycemia; E78.2 Mixed hyperlipidemia; N18.2 Chronic kidney disease, stage 2 (mild)
CPT/HCPCS: 36415; 80053; 80061; 83036

== ENCOUNTER → 2019-10-25 08:09 | Outpatient (CLI) | payer OTHER, SELFPAY ==
[2019-10-25 09:00] LABS: Alanine Aminotransferase 24 IU/L (<35); Albumin 4.3 g/dL (3.5-5.0); Albumin Globulin Ratio 1.5 (1.0-2.8); Alkaline Phosphatase 70 U/L (38-126); Aspartate Aminotransferase 27 IU/L (14-36); BUN Creatinine Ratio 18.2 (6-22); Bilirubin Total 0.6 mg/dL (0.2-1.3); Blood Urea Nitrogen 20 mg/dL (7-17); Calcium 9.6 mg/dL (8.4-10.2); Carbon Dioxide 26 mmol/L (22-32); Chloride 108 mmol/L (98-107); Cholesterol 292 mg/dL (140-199); Globulin 2.8 g/dL (1.7-4.1); Glucose 90 mg/dL (80-110); HDL Cholesterol 60 mg/dL (40-60); HEMOLYSIS 20 (0-50); LDL Cholesterol Calculated 197 mg/dL (<100); Potassium 4.4 mmol/L (3.4-5.1); Sodium 139 mmol/L (137-145); Total Protein 7.1 g/dL (6.3-8.2); Triglycerides 175 mg/dL (35-150)
[2019-10-25 09:16] LABS: Free T4, Direct Thyroxine 0.82 ng/dL (0.78-2.19)
[2019-10-25 09:30] LABS: Thyroid Stimulating Hormone 3.31 uIU/mL (0.47-4.68)
== END ==
PROVIDERS: PCP Internal Medicine; Referring Provider Internal Medicine; Visit Provider Internal Medicine
DX: E03.9 Hypothyroidism, unspecified (principal); E78.2 Mixed hyperlipidemia; N18.2 Chronic kidney disease, stage 2 (mild)
CPT/HCPCS: 36415; 80053; 80061; 84439; 84443

== ENCOUNTER → 2020-04-08 08:04 | Outpatient (CLI) | payer MEDICARE, SELFPAY ==
[2020-04-08 08:28] LABS: RBC Urine None Seen (0-5/HPF)
[2020-04-08 09:05] LABS: Add Manual Diff / Slide Review NO; Basophils Absolute Auto 100 /uL (0-100); Eosinophils Absolute Auto 200 /uL (0-450); Eosinophils Percent Auto 4.5 % (2-4); Hematocrit 39.9 % (36-46); Hemoglobin 13.5 g/dL (12.0-16.0); Lymphocytes Absolute Auto 1400 /uL (1100-4500); Lymphocytes Percent Auto 26.7 % (25-40); Mean Corpuscular HGB Conc 33.8 % (30-36); Mean Corpuscular Hemoglobin 30.1 PG (26-34); Monocytes Absolute Auto 400 /uL (0-900); Neutrophils Absolute Auto 3200 /uL (1500-7000); Neutrophils Percent Auto 60.8 % (50-75); Platelet Count 216 X10^3/uL (150-400); Red Blood Cell Count 4.48 X10^6/uL (4.0-5.2); Red Cell Distribution Width 13.3 % (11.6-14.8); White Blood Cell Count 5.3 X10^3/uL (4.5-11.0)
[2020-04-08 09:07] LABS: Hemoglobin A1C% w Est Avg Glu 6.1 % (4.0-6.0)
[2020-04-08 09:10] LABS: Appearance Urine UA CLEAR; Bilirubin Urine UA NEGATIVE (NEGATIVE); Color Urine UA YELLOW; Glucose Urine UA NEGATIVE (Negative); Ketones Urine UA NEGATIVE (NEGATIVE); Leukocyte Esterase Urine UA 2+ (NEGATIVE); Nitrite Urine UA NEGATIVE (Negative); Occult Blood Urine UA NEGATIVE (Negative); Protein Urine UA NEGATIVE (Negative); Urobilinogen Urine UA 0.2 E.U./dL (0.2)
[2020-04-08 09:32] LABS: Amorphous Sediment Urine 1+; Bacteria Urine Moderate (10-30); Culture Indicated Urine Specimen Cultured; WBC Urine 10-30/HPF (0-5/HPF)
[2020-04-08 09:36] LABS: Alanine Aminotransferase 31 IU/L (<35); Albumin 4.1 g/dL (3.5-5.0); Albumin Globulin Ratio 1.6 (1.0-2.8); Alkaline Phosphatase 88 U/L (38-126); Aspartate Aminotransferase 24 IU/L (14-36); BUN Creatinine Ratio 21.7 (6-22); Bilirubin Total 0.5 mg/dL (0.2-1.3); Blood Urea Nitrogen 25 mg/dL (7-17); Calcium 9.8 mg/dL (8.4-10.2); Carbon Dioxide 28 mmol/L (22-32); Chloride 106 mmol/L (98-107); Cholesterol 206 mg/dL (140-199); Estimated Glomerular Filt Rate 47.4 mL/min (>60); Globulin 2.6 g/dL (1.7-4.1); Glucose 106 mg/dL (80-110); HDL Cholesterol 58 mg/dL (40-60); HEMOLYSIS < 15 (0-50); LDL Cholesterol Calculated 120 mg/dL (<100); Phosphorous 3.7 mg/dL (2.8-4.1); Potassium 4.6 mmol/L (3.4-5.1); Sodium 141 mmol/L (137-145); Total Protein 6.7 g/dL (6.3-8.2); Triglycerides 138 mg/dL (35-150)
[2020-04-08 09:41] LABS: Creatinine Urine Random 117.7 mg/dL
[2020-04-08 09:45] LABS: Microalbumi Creatinin Ratio Ur 6.7 ug/mg CR (<30); Microalbumin Urine Random 0.8 mg/dL (0-1.6)
[2020-04-08 09:47] LABS: LDL Cholesterol Direct 129 mg/dL (<100)
[2020-04-08 09:54] LABS: Vitamin D 25 Hydroxy (D3) 23.9 ng/mL (30.0-100.0)
[2020-04-08 09:55] LABS: Free T4, Direct Thyroxine 0.81 ng/dL (0.78-2.19)
[2020-04-08 10:09] LABS: Thyroid Stimulating Hormone 2.19 uIU/mL (0.47-4.68)
== END ==
PROVIDERS: PCP Internal Medicine; Referring Provider Internal Medicine; Visit Provider Family Medicine
DX: I12.9 Hypertensive chronic kidney disease with stage 1 through stage 4 chronic kidney disease, or unspecified chronic kidney disease (principal); N18.30 Chronic kidney disease, stage 3 unspecified; R80.9 Proteinuria, unspecified; E78.2 Mixed hyperlipidemia; N25.0 Renal osteodystrophy; E55.9 Vitamin D deficiency, unspecified; E03.9 Hypothyroidism, unspecified; N18.2 Chronic kidney disease, stage 2 (mild)
CPT/HCPCS: 36415; 80053; 80061; 81001; 82043; 82306; 82570; 83036; 83721; 84100; 84439; 84443; 85025; 87086

== ENCOUNTER → 2020-06-16 15:39 | Outpatient (CLI) | payer MEDICARE, SELFPAY ==
--- NOTE | 2020-06-16 15:42 | DI.MG.S_ITS ---
BILATERAL DIGITAL SCREENING MAMMOGRAM 3D/2D WITH CAD: 06/16/2020 Comparison is made to exams dated: 08/09/2018 mammogram - [facility], 09/13/2016 mammogram, and 03/17/2014 mammogram - [facility]. There are scattered fibroglandular elements in both breasts. Current study was also evaluated with a Computer Aided Detection (CAD) system. There are benign post operative findings in the left breast. No significant masses, calcifications, or other findings are seen in either breast. There has been no significant interval change. IMPRESSION: BENIGN There is no mammographic evidence of malignancy. A 1 year screening mammogram is recommended. This exam was interpreted at Station ID: [id number]. NOTE: For mammograms, a report in lay terms will be sent to the patient. Approximately 15% of breast malignancies will not be visualized mammographically. In the management of a palpable breast mass, a negative mammogram must not discourage biopsy of a clinically suspicious lesion. Electronically Signed By: James james/anirudh:06/16/2020 16:49:34 letter sent: Normal Exam ACR BI-RADS Category 2: Benign Finding(s) 3342F
== END ==
PROVIDERS: PCP Internal Medicine; Referring Provider Internal Medicine; Visit Provider Internal Medicine
DX: Z12.31 Encounter for screening mammogram for malignant neoplasm of breast (principal)
CPT/HCPCS: 77063; 77067

== ENCOUNTER → 2021-05-26 07:37 | Outpatient (CLI) | payer MEDICARE, SELFPAY ==
--- NOTE | 2021-05-26 07:45 | DI.RAD.S_ITS ---
PROCEDURE: XR HIP W PEL IF DONE LT 2V INDICATIONS: left hip pain TECHNIQUE: AP pelvis with lateral view(s) of the left and right hip(s). COMPARISON: None. FINDINGS: Bones: No acute fracture. Lower lumbar spondylosis and facet disease. Mild bilateral hip joint degeneration. Soft tissues: The visualized bowel gas pattern is normal. No suspicious soft tissue calcifications. IMPRESSION: Mild bilateral hip joint degeneration. Dictated by: Tung Zapata M.D. on 05/26/2021 at 11:58 Approved by: Tung Zapata M.D. on 05/26/2021 at 12:00
[2021-05-26 08:21] LABS: Appearance Urine UA CLEAR; Bilirubin Urine UA NEGATIVE (NEGATIVE); Color Urine UA YELLOW; Glucose Urine UA NEGATIVE (Negative); Ketones Urine UA NEGATIVE (NEGATIVE); Leukocyte Esterase Urine UA 2+ (NEGATIVE); Nitrite Urine UA NEGATIVE (Negative); Occult Blood Urine UA TRACE-LYSED (Negative); Protein Urine UA NEGATIVE (Negative); Urobilinogen Urine UA 0.2 E.U./dL (0.2)
[2021-05-26 08:30] LABS: Alanine Aminotransferase 31 IU/L (<35); Albumin 4.3 g/dL (3.5-5.0); Albumin Globulin Ratio 1.7 (1.0-2.8); Alkaline Phosphatase 60 U/L (38-126); Aspartate Aminotransferase 26 IU/L (14-36); Bilirubin Total 0.5 mg/dL (0.2-1.3); Blood Urea Nitrogen 23 mg/dL (7-17); Calcium 9.5 mg/dL (8.4-10.2); Carbon Dioxide 25 mmol/L (22-32); Chloride 107 mmol/L (98-107); Cholesterol 204 mg/dL (140-199); Estimated Glomerular Filt Rate 41.7 mL/min (>60); Globulin 2.6 g/dL (1.7-4.1); Glucose 101 mg/dL (80-110); HDL Cholesterol 58 mg/dL (40-60); HEMOLYSIS < 15 (0-50); LDL Cholesterol Calculated 123 mg/dL (<100); Potassium 4.2 mmol/L (3.4-5.1); Sodium 141 mmol/L (137-145); Total Protein 6.9 g/dL (6.3-8.2); Triglycerides 116 mg/dL (35-150)
[2021-05-26 08:32] LABS: RBC Urine 1-5/HPF (0-5/HPF); Squamous Epithelial Cell Urine 1-5 /HPF (0-5/HPF); WBC Urine 10-30/HPF (0-5/HPF)
[2021-05-26 08:33] LABS: Bacteria Urine Moderate (10-30); Culture Indicated Urine Specimen Cultured
[2021-05-26 08:37] LABS: Hemoglobin A1C% w Est Avg Glu 5.6 % (4.0-6.0)
[2021-05-26 08:57] LABS: Microalbumin Urine Random 0.8 mg/dL (0-1.6)
[2021-05-26 09:00] LABS: Microalbumi Creatinin Ratio Ur 18.1 ug/mg CR (<30)
[2021-05-26 09:16] LABS: Free T4, Direct Thyroxine 0.78 ng/dL (0.78-2.19)
[2021-05-26 09:30] LABS: Thyroid Stimulating Hormone 4.27 uIU/mL (0.47-4.68)
== END ==
LOC: LAB 07:38 → RAD 07:44
PROVIDERS: PCP Internal Medicine; Referring Provider Specialist; Visit Provider Specialist
DX: M25.552 Pain in left hip (principal); I12.9 Hypertensive chronic kidney disease with stage 1 through stage 4 chronic kidney disease, or unspecified chronic kidney disease; N18.31 Chronic kidney disease, stage 3a; R73.03 Prediabetes; E03.9 Hypothyroidism, unspecified; E78.2 Mixed hyperlipidemia; M16.0 Bilateral primary osteoarthritis of hip; R80.9 Proteinuria, unspecified
CPT/HCPCS: 36415; 73502; 80053; 80061; 81001; 82043; 82570; 83036; 84439; 84443; 87086

== ENCOUNTER → 2021-06-29 12:06 | Outpatient (CLI) | payer MEDICARE, SELFPAY ==
--- NOTE | 2021-06-29 12:07 | DI.MRI.S_ITS ---
PROCEDURE: MR HIP LT WO CON INDICATIONS: Pain in left hip TECHNIQUE: Noncontrast coronal T1 spin echo and STIR through the bony pelvis. Coronal and axial T2 fast spin echo with fat saturation, sagittal T1 spin echo, and oblique axial T2 fast spin echo with fat saturation through the hip. COMPARISON: None. FINDINGS: Image quality: Some images are slightly degraded by motion artifact. Bones and joints: Bone marrow of the pelvic ring and proximal femurs show normal signal throughout. No intraosseous lesions or fractures. No avascular necrosis of the femoral heads. Tendons and ligaments: The gluteus medius and minimus tendons appear intact, without associated muscle atrophy. Small focus of T2 hyperintense signal overlying the greater trochanter (4-24), which may reflect mild bursitis. The nearby proximal iliotibial band also appears intact. The iliopsoas tendon appears intact, without adjacent bursal fluid collections or evidence for impingement syndrome. The origin of the hamstring tendon is intact at the ischial tuberosity, as well as the associated sacrotuberous ligament. The ligamentum teres appears intact where visualized. Labrum and cartilage: The acetabular labrum appears intact in the absence of intra-articular contrast. Cartilage surface of the femoral head appears of normal thickness. The alpha angle of the femur is within normal limits at less than 55 degrees. Soft tissues: Visualized muscles demonstrate normal bulk and internal signal. The proximal sciatic neurovascular bundle appears normal adjacent to the hamstring tendons. No free pelvic fluid. Bladder wall thickness is normal. Genitourinary structures and bowel loops appear normal where visualized. IMPRESSION: 1. Mild trochanteric bursitis. Dictated by: Galen Tan M.D. on 06/29/2021 at 13:07 Approved by: Galen Tan M.D. on 06/29/2021 at 13:11
== END ==
PROVIDERS: PCP Internal Medicine; Referring Provider Orthopaedic Surgery; Visit Provider Orthopaedic Surgery
DX: M70.62 Trochanteric bursitis, left hip (principal); M25.552 Pain in left hip
CPT/HCPCS: 73721

== ENCOUNTER → 2021-06-30 14:40 | Outpatient (CLI) | payer MEDICARE, SELFPAY ==
--- NOTE | 2021-06-30 14:41 | DI.MG.S_ITS ---
BILATERAL DIGITAL SCREENING MAMMOGRAM 3D/2D WITH CAD: 06/30/2021 CLINICAL: Routine screening. Comparison is made to exams dated: 06/16/2020 mammogram, 08/09/2018 mammogram - [facility], and [facility] There are scattered fibroglandular elements in both breasts. Current study was also evaluated with a Computer Aided Detection (CAD) system. There are benign post operative findings in the left breast. No significant masses, calcifications, or other findings are seen in either breast. There has been no significant interval change. IMPRESSION: BENIGN There is no mammographic evidence of malignancy. A 1 year screening mammogram is recommended. This exam was interpreted at Station ID: [id number]. NOTE: For mammograms, a report in lay terms will be sent to the patient. Approximately 15% of breast malignancies will not be visualized mammographically. In the management of a palpable breast mass, a negative mammogram must not discourage biopsy of a clinically suspicious lesion. Electronically Signed By: Gregor Snell M.D., jr/anirudh:06/30/2021 15:08:42 letter sent: Normal Exam ACR BI-RADS Category 2: Benign Finding(s) 3342F
== END ==
PROVIDERS: PCP Internal Medicine; Referring Provider Internal Medicine; Visit Provider Internal Medicine
DX: Z12.31 Encounter for screening mammogram for malignant neoplasm of breast (principal)
CPT/HCPCS: 77063; 77067

== ENCOUNTER → 2021-08-25 12:43 | Outpatient (CLI) | payer MEDICARE, SELFPAY ==
--- NOTE | 2021-08-25 12:45 | DI.RAD.S_ITS ---
PROCEDURE: XR DEXA AXIAL SKELETON INDICATIONS: Screening for bony density COMPARISON: None. FINDINGS: This blank DEXA report has been sent in error by the PACS system. The correct and complete report will be forthcoming in 1-2 days. Thank you for your patience and understanding. Dictated by: Jordana Serna MD, PhD on 08/25/2021 at 15:14 Approved by: Jordana Serna MD, PhD on 08/25/2021 at 15:14
== END ==
PROVIDERS: PCP Internal Medicine; Referring Provider Internal Medicine; Visit Provider Internal Medicine
DX: M85.852 Other specified disorders of bone density and structure, left thigh (principal); Z78.0 Asymptomatic menopausal state; M19.90 Unspecified osteoarthritis, unspecified site; Z82.62 Family history of osteoporosis
CPT/HCPCS: 77080

== ENCOUNTER → 2022-01-30 07:32 | Outpatient (CLI) | payer MEDICARE, SELFPAY ==
[2022-01-30 08:17] LABS: Alanine Aminotransferase 24 IU/L (<35); Albumin 4.3 g/dL (3.5-5.0); Albumin Globulin Ratio 1.7 (1.0-2.8); Alkaline Phosphatase 72 U/L (38-126); Aspartate Aminotransferase 26 IU/L (14-36); BUN Creatinine Ratio 16.2 (6-22); Bilirubin Total 0.4 mg/dL (0.2-1.3); Blood Urea Nitrogen 18 mg/dL (7-17); Calcium 9.2 mg/dL (8.4-10.2); Carbon Dioxide 23 mmol/L (22-32); Chloride 108 mmol/L (98-107); Cholesterol 198 mg/dL (140-199); Estimated Glomerular Filt Rate 55 mL/min (>60); Globulin 2.5 g/dL (1.7-4.1); Glucose 103 mg/dL (80-110); HDL Cholesterol 50 mg/dL (40-60); HEMOLYSIS < 15 (0-50); LDL Cholesterol Calculated 125 mg/dL (<100); Potassium 4.1 mmol/L (3.4-5.1); Sodium 139 mmol/L (137-145); Total Protein 6.8 g/dL (6.3-8.2); Triglycerides 116 mg/dL (35-150)
[2022-01-30 08:30] LABS: Vitamin D 25 Hydroxy (D3) 64.7 ng/mL (30.0-100.0)
[2022-01-30 08:40] LABS: Free T4, Direct Thyroxine 0.94 ng/dL (0.78-2.19)
== END ==
PROVIDERS: PCP Internal Medicine; Referring Provider Internal Medicine; Visit Provider Internal Medicine
DX: E03.9 Hypothyroidism, unspecified (principal); E78.2 Mixed hyperlipidemia; E55.9 Vitamin D deficiency, unspecified; N18.31 Chronic kidney disease, stage 3a; I12.9 Hypertensive chronic kidney disease with stage 1 through stage 4 chronic kidney disease, or unspecified chronic kidney disease
CPT/HCPCS: 36415; 80053; 80061; 82306; 84439; 84443

== ENCOUNTER → 2022-05-04 10:24 | Outpatient (CLI) | payer MEDICARE, SELFPAY ==
[2022-05-04 11:17] LABS: COVID19 -Nasal RAPID Negative (Negative)
== END ==
PROVIDERS: PCP Internal Medicine; Referring Provider Internal Medicine; Visit Provider Internal Medicine
DX: Z20.822 Contact with and (suspected) exposure to COVID-19 (principal)
CPT/HCPCS: 87635; C9803

== ENCOUNTER → 2022-05-05 08:21 | Outpatient (CLI) | payer MEDICARE, SELFPAY ==
--- NOTE | 2022-05-10 10:54 | PM.PFT.1 ---
Pulmonary Function Test Referral & Results Date Patient Seen: 05/05/22 Requesting provider: Valente Zaldivar Results: The spirometry demonstrates an FVC of 2.56 L which is 76% of predicted. The FEV1 was measured at 1.99 L which is 78% of predicted. The FEV1/FVC ratio was 78 which is 100% of predicted. Following the administration of bronchodilator there was no notable improvement. Lung volumes show an SVC of 2.77 L which is 88% of predicted. The diffusing capacity was measured at 19.68 which is 73% of predicted. No hemoglobin value was provided, so no correction for potential anemia could be made, if appropriate. The maximum voluntary ventilation was reduced Interpretation: This study demonstrates possibly mild obstructive lung disease based on minimal reduction FEV1 although FEV1/FVC ratio is preserved. There really is no notable benefit following bronchodilator and shape a flow volume loop also does not really support the presence of any notable obstructive lung disease Lung volumes are probably normal There is a mild reduction in diffusing capacity suggests the possibility of disease at the capillary alveolar level In the absence of any notable spirometric abnormalities the reduction in maximum voluntary ventilation raises the possibility of neuromuscular disease being present Clinical correlation suggested
== END ==
PROVIDERS: PCP Internal Medicine; Referring Provider Internal Medicine; Visit Provider Internal Medicine
DX: J45.30 Mild persistent asthma, uncomplicated (principal)
CPT/HCPCS: 94060; 94726; 94729

== ENCOUNTER → 2022-06-05 07:02 | Outpatient (CLI) | payer MEDICARE, SELFPAY ==
[2022-06-05 08:33] LABS: Add Manual Diff / Slide Review NO; Basophils Absolute Auto 0 /uL (0-100); Basophils Percent Auto 0.9 % (0-2); Eosinophils Absolute Auto 200 /uL (0-450); Eosinophils Percent Auto 3.5 % (2-4); Hematocrit 38.7 % (36-46); Lymphocytes Absolute Auto 1500 /uL (1100-4500); Lymphocytes Percent Auto 28.1 % (25-40); Mean Corpuscular HGB Conc 33.6 % (30-36); Mean Corpuscular Hemoglobin 29.8 PG (26-34); Mean Corpuscular Volume 88.7 fL (80-100); Monocytes Absolute Auto 400 /uL (0-900); Monocytes Percent Auto 7.7 % (3-14); Neutrophils Absolute Auto 3300 /uL (1500-7000); Neutrophils Percent Auto 59.8 % (50-75); Platelet Count 223 X10^3/uL (150-400); Red Blood Cell Count 4.36 X10^6/uL (4.0-5.2); Red Cell Distribution Width 13.9 % (11.6-14.8); White Blood Cell Count 5.4 X10^3/uL (4.5-11.0)
[2022-06-05 09:07] LABS: Appearance Urine UA SL CLOUDY; Bilirubin Urine UA NEGATIVE (NEGATIVE); Color Urine UA YELLOW; Glucose Urine UA NEGATIVE (Negative); Ketones Urine UA NEGATIVE (NEGATIVE); Leukocyte Esterase Urine UA 1+ (NEGATIVE); Nitrite Urine UA NEGATIVE (Negative); Occult Blood Urine UA NEGATIVE (Negative); Protein Urine UA TRACE (Negative); Specific Gravity Urine UA >=1.030 (1.000-1.035); Urobilinogen Urine UA 0.2 E.U./dL (0.2)
[2022-06-05 09:49] LABS: Creatinine Urine Random 295.2 mg/dL
[2022-06-05 09:51] LABS: Alanine Aminotransferase 47 IU/L (<35); Albumin 4.2 g/dL (3.5-5.0); Albumin Globulin Ratio 1.8 (1.0-2.8); Alkaline Phosphatase 74 U/L (38-126); Aspartate Aminotransferase 28 IU/L (14-36); BUN Creatinine Ratio 15.3 (6-22); Bilirubin Total 0.7 mg/dL (0.2-1.3); Blood Urea Nitrogen 20 mg/dL (7-17); Calcium 9.6 mg/dL (8.4-10.2); Carbon Dioxide 25 mmol/L (22-32); Chloride 107 mmol/L (98-107); Estimated Glomerular Filt Rate 45 mL/min (>60); Globulin 2.3 g/dL (1.7-4.1); Glucose 111 mg/dL (80-110); HEMOLYSIS < 15 (0-50); Sodium 142 mmol/L (137-145); Total Protein 6.5 g/dL (6.3-8.2)
[2022-06-05 09:52] LABS: Bacteria Urine None Seen; Culture Indicated Urine Specimen Cultured; Hyaline Casts Urine 1-5/LPF; RBC Urine None Seen (0-5/HPF); Squamous Epithelial Cell Urine 1-5 /HPF (0-5/HPF); WBC Urine 10-30/HPF (0-5/HPF)
[2022-06-05 10:32] LABS: Protein (Total) Urine Random < 5 mg/dL (0-12); Protein Creatinine Ratio Urine < 0.01 GRAM/24H
== END ==
PROVIDERS: PCP Internal Medicine; Referring Provider Specialist; Visit Provider Specialist
DX: I10 Essential (primary) hypertension (principal); N18.32 Chronic kidney disease, stage 3b; I12.9 Hypertensive chronic kidney disease with stage 1 through stage 4 chronic kidney disease, or unspecified chronic kidney disease; N39.0 Urinary tract infection, site not specified
CPT/HCPCS: 36415; 80053; 81001; 82570; 84156; 85025; 87086

== ENCOUNTER → 2023-03-28 07:49 | Outpatient (CLI) | payer MEDICARE, SELFPAY ==
[2023-03-28 09:12] LABS: Hemoglobin A1C% w Est Avg Glu 5.8 % (4.0-6.0)
[2023-03-28 09:26] LABS: Alanine Aminotransferase 37 IU/L (<35); Albumin 4.1 g/dL (3.5-5.0); Albumin Globulin Ratio 1.6 (1.0-2.8); Alkaline Phosphatase 63 U/L (38-126); Aspartate Aminotransferase 25 IU/L (14-36); BUN Creatinine Ratio 17.1 (6-22); Bilirubin Total 0.5 mg/dL (0.2-1.3); Blood Urea Nitrogen 21 mg/dL (7-17); Calcium 9.4 mg/dL (8.4-10.2); Carbon Dioxide 25 mmol/L (22-32); Chloride 107 mmol/L (98-107); Cholesterol 203 mg/dL (140-199); Estimated Glomerular Filt Rate 48 mL/min (>60); Globulin 2.5 g/dL (1.7-4.1); Glucose 93 mg/dL (80-110); HDL Cholesterol 45 mg/dL (40-60); HEMOLYSIS < 15 (0-50); LDL Cholesterol Calculated 131 mg/dL (<100); Potassium 4.2 mmol/L (3.4-5.1); Sodium 139 mmol/L (137-145); Total Protein 6.6 g/dL (6.3-8.2); Triglycerides 137 mg/dL (35-150)
[2023-03-28 09:39] LABS: Free T4, Direct Thyroxine 0.95 ng/dL (0.78-2.19)
[2023-03-28 09:52] LABS: Thyroid Stimulating Hormone 2.52 uIU/mL (0.47-4.68)
== END ==
PROVIDERS: PCP Internal Medicine; Referring Provider Internal Medicine; Visit Provider Internal Medicine
DX: R73.03 Prediabetes (principal); E03.9 Hypothyroidism, unspecified; I10 Essential (primary) hypertension; N18.31 Chronic kidney disease, stage 3a; E78.2 Mixed hyperlipidemia
CPT/HCPCS: 36415; 80053; 80061; 83036; 84439; 84443

== ENCOUNTER → 2023-08-20 08:16 | Outpatient (CLI) | payer OTHER, SELFPAY ==
[2023-08-20 09:05] LABS: Appearance Urine UA CLEAR; Bilirubin Urine UA NEGATIVE (NEGATIVE); Color Urine UA YELLOW; Glucose Urine UA NEGATIVE (Negative); Ketones Urine UA NEGATIVE (NEGATIVE); Leukocyte Esterase Urine UA 1+ (NEGATIVE); Nitrite Urine UA NEGATIVE (Negative); Occult Blood Urine UA NEGATIVE (Negative); Protein Urine UA NEGATIVE (Negative); Specific Gravity Urine UA <=1.005 (1.000-1.035); Urobilinogen Urine UA 0.2 E.U./dL (0.2)
[2023-08-20 09:10] LABS: Bacteria Urine Occasional (0-1); RBC Urine None Seen (0-5/HPF); Squamous Epithelial Cell Urine 0-1 /HPF (0-5/HPF); Urine Volume 10mL (spun); WBC Urine 1-5/HPF (0-5/HPF)
[2023-08-20 09:11] LABS: Culture Indicated Urine Specimen Cultured
[2023-08-20 09:17] LABS: Add Manual Diff / Slide Review NO; Basophils Absolute Auto 100 /uL (0-100); Eosinophils Absolute Auto 200 /uL (0-450); Eosinophils Percent Auto 3.9 % (2-4); Hemoglobin 13.4 g/dL (12.0-16.0); Lymphocytes Absolute Auto 1700 /uL (1100-4500); Lymphocytes Percent Auto 33.9 % (25-40); Mean Corpuscular HGB Conc 34.3 % (30-36); Mean Corpuscular Hemoglobin 30.4 PG (26-34); Mean Corpuscular Volume 88.6 fL (80-100); Monocytes Absolute Auto 400 /uL (0-900); Neutrophils Absolute Auto 2800 /uL (1500-7000); Neutrophils Percent Auto 54.2 % (50-75); Platelet Count 222 X10^3/uL (150-400); Red Cell Distribution Width 13.9 % (11.6-14.8); White Blood Cell Count 5.1 X10^3/uL (4.5-11.0)
[2023-08-20 10:06] LABS: Alanine Aminotransferase 42 IU/L (<35); Albumin 4.2 g/dL (3.5-5.0); Albumin Globulin Ratio 1.8 (1.0-2.8); Alkaline Phosphatase 69 U/L (38-126); Aspartate Aminotransferase 30 IU/L (14-36); BUN Creatinine Ratio 15.3 (6-22); Bilirubin Total 0.6 mg/dL (0.2-1.3); Blood Urea Nitrogen 19 mg/dL (7-17); Calcium 9.8 mg/dL (8.4-10.2); Carbon Dioxide 25 mmol/L (22-32); Chloride 105 mmol/L (98-107); Estimated Glomerular Filt Rate 47 mL/min (>60); Globulin 2.4 g/dL (1.7-4.1); Glucose 99 mg/dL (80-110); HEMOLYSIS < 15 (0-50); Potassium 4.4 mmol/L (3.4-5.1); Sodium 138 mmol/L (137-145); Total Protein 6.6 g/dL (6.3-8.2)
[2023-08-20 10:24] LABS: Creatinine Urine Random 50.7 mg/dL
[2023-08-20 10:29] LABS: Microalbumin Urine Random < 0.6 mg/dL (0-1.6)
== END ==
PROVIDERS: PCP Internal Medicine; Referring Provider Specialist; Visit Provider Specialist
DX: I12.9 Hypertensive chronic kidney disease with stage 1 through stage 4 chronic kidney disease, or unspecified chronic kidney disease (principal); N18.31 Chronic kidney disease, stage 3a; I10 Essential (primary) hypertension; N15.9 Renal tubulo-interstitial disease, unspecified
CPT/HCPCS: 36415; 80053; 81001; 82043; 82570; 85025; 87086

== ENCOUNTER → 2023-10-04 11:52 | Outpatient (CLI) | payer MEDICARE, SELFPAY ==
--- NOTE | 2023-10-04 11:56 | DI.MG.S_ITS ---
BILATERAL DIGITAL SCREENING MAMMOGRAM 3D/2D WITH CAD: 10/04/2023 CLINICAL: Routine screening. Comparison is made to exams dated: 06/30/2021 mammogram, 06/16/2020 mammogram, and 08/09/2018 mammogram - [facility]. There are scattered areas of fibroglandular density in both breasts (category b / 25%-50% glandular tissue). Current study was also evaluated with a Computer Aided Detection (CAD) system. There are benign post operative findings in the left breast. No significant masses, calcifications, or other findings are seen in either breast. There has been no significant interval change. IMPRESSION: BENIGN There is no mammographic evidence of malignancy. A 1 year screening mammogram is recommended. Based on the Tyrer Cuzick model (a risk assessment model) the patient's lifetime risk is 6.2% and her 10 year risk is 3.4%. According to the ACR, ACS, and NCCN guidelines, an annual breast MRI exam along with mammogram is recommended if the patient's lifetime risk is 20% or greater. This exam was interpreted at Station ID: [id number]. NOTE: For mammograms, a report in lay terms will be sent to the patient. Approximately 15% of breast malignancies will not be visualized mammographically. In the management of a palpable breast mass, a negative mammogram must not discourage biopsy of a clinically suspicious lesion. Electronically Signed By: Margarita garcia/anirudh:10/05/2023 17:33:08 letter sent: Normal Exam ACR BI-RADS Category 2: Benign Finding(s) 3342F
== END ==
PROVIDERS: PCP Internal Medicine; Referring Provider Internal Medicine; Visit Provider Internal Medicine
DX: Z12.31 Encounter for screening mammogram for malignant neoplasm of breast (principal); R92.323 Mammographic fibroglandular density, bilateral breasts
CPT/HCPCS: 77063; 77067

== ENCOUNTER → 2023-12-20 10:12 | Outpatient (CLI) | payer MEDICARE, SELFPAY ==
--- NOTE | 2023-12-20 10:13 | DI.RAD.S_ITS ---
PROCEDURE: [place] HIP INJECTION MR/CT LT INDICATIONS: Sprain of Left hip TECHNIQUE: The indications, alternatives, benefits, risks, and complications of the procedure were explained to the patient. Written informed consent was obtained and placed in the chart. The hip was examined fluoroscopically with the legs fixed in slight internal rotation, and a site for needle placement chosen for entry into the hip joint from an anterior approach. Care was taken to locate the common femoral artery and vein beforehand. The skin was prepped and draped in a sterile fashion, and 1% Lidocaine infiltrated from skin down to joint capsule. A spinal needle was inserted into the joint, and a small amount of iodinated contrast media injected to confirm intra-articular placement of the needle tip. This was followed by approximately 10 mL dilute solution of a gadolinium containing MR contrast agent. The needle was removed and a dressing was applied. The patient was given postprocedural instructions and sent to the MR suite for imaging. COMPARISON: [facility], MR, MR HIP LT W CON, 12/20/2023, 11:12. FINDINGS: A single fluoroscopic spot image demonstrates intra-articular location of injected iodinated contrast. IMPRESSION: Successful fluoroscopically guided administration of dilute Gadolinium solution into the hip joint for MR arthrogram. Dictated by: James San M.D. on 12/20/2023 at 13:30 Approved by: James San M.D. on 12/20/2023 at 13:30
--- NOTE | 2023-12-20 10:13 | DI.MRI.S_ITS ---
PROCEDURE: MR HIP LT W CON INDICATIONS: Sprain of Left hip TECHNIQUE: After the administration of 10 mL of dilute intra-articular Gadolinium contrast, coronal T1 spin echo and STIR of the bony pelvis; coronal and oblique axial T2 fast spin echo with fat saturation, axial T2 fast spin echo with fat saturation, sagittal T1 spin echo of the involved hip. COMPARISON: [facility], MR, MR HIP LEFT WITHOUT CONTRAST, 06/29/2021, 12:16. [facility] [place], CR, XR PELVIS WITH LATERAL HIP LEFT, 08/29/2023, 13:23. [facility], , [place] HIP INJECTION MR/CT LT, 12/20/2023, 9:46. FINDINGS: Image quality: Excellent. Bones and joints: Bone marrow of the pelvic ring and proximal femurs show normal signal throughout. No intraosseous lesions or fractures. No avascular necrosis of the femoral head. Moderate degenerative changes are seen in the contralateral right hip on large field of view coronal images. There is a small right hip effusion. Mild degenerative changes at the pubic symphysis, sacroiliac joints, and included spine. Tendons and ligaments: The gluteus medius and minimus tendons demonstrate mild tendinosis at their distal insertions. The proximal iliotibial band appears intact. The iliopsoas tendon appears intact, without adjacent bursal fluid collections. The origin of the hamstring tendon is intact at the ischial tuberosity. The tendons for the direct and indirect heads of the rectus femoris muscle appear intact. Labrum and cartilage: There is nondisplaced tearing at the anterior superior labrum, which is likely chronic med is not well seen on the prior MRI due to lack of intra-articular contrast material on the prior exam. Mild partial-thickness cartilage irregularity in the superior hip with mild degenerative spurring at the acetabular rim. No intra-articular loose body is seen. Soft tissues: Visualized muscles demonstrate normal bulk and internal signal. There is mild fatty infiltration of the quadratus femoris muscle. No significant narrowing of the ischiofemoral distance as positioned on this exam. The proximal sciatic neurovascular bundle appears normal adjacent to the hamstring tendons. Pelvic soft tissues demonstrate no acute abnormality. IMPRESSION: 1. Nondisplaced tearing at the anterior superior acetabular labrum, which is likely chronic. 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 2. 3. Mild distal left gluteus medius and minimus tendinosis. 4. Mild fatty infiltration of the quadratus femoris muscle can be seen in the setting of ischiofemoral impingement. However, the ischiofemoral distance is within normal limits as positioned on this exam. 5. Moderate degenerative changes in the contralateral right hip on large [id number] images. Degenerative changes also seen in the pubic symphysis, sacroiliac joints, and included spine. Approved by: Ezekiel Castillo M.D. on 12/21/2023 at 9:24
[2023-12-20] MEDS: SODIUM CHLORIDE 0.9 % 20 ML VIAL IV (12:15)
[2023-12-20] MEDS: LIDOCAINE 1% 20 ML INJ (12:15)
== END ==
PROVIDERS: PCP Internal Medicine; Referring Provider Orthopaedic Surgery; Visit Provider Orthopaedic Surgery
DX: S73.192A Other sprain of left hip, initial encounter (principal); M94.252 Chondromalacia, left hip; X58.XXXA Exposure to other specified factors, initial encounter
CPT/HCPCS: 27093; 73525; 73722; A9579; Q9967

== ENCOUNTER → 2024-01-17 07:01 | Outpatient (CLI) | payer MEDICARE, SELFPAY ==
[2024-01-17 08:07] LABS: Add Manual Diff / Slide Review NO; Basophils Absolute Auto 0 /uL (0-100); Basophils Percent Auto 0.8 % (0-2); Eosinophils Absolute Auto 200 /uL (0-450); Eosinophils Percent Auto 3.2 % (2-4); Hematocrit 37.6 % (36-46); Lymphocytes Absolute Auto 1500 /uL (1100-4500); Lymphocytes Percent Auto 31.8 % (25-40); Mean Corpuscular HGB Conc 34.6 % (30-36); Mean Corpuscular Hemoglobin 31.1 PG (26-34); Mean Corpuscular Volume 89.8 fL (80-100); Monocytes Absolute Auto 300 /uL (0-900); Monocytes Percent Auto 6.3 % (3-14); Neutrophils Absolute Auto 2700 /uL (1500-7000); Neutrophils Percent Auto 57.9 % (50-75); Platelet Count 213 X10^3/uL (150-400); Red Blood Cell Count 4.18 X10^6/uL (4.0-5.2); Red Cell Distribution Width 12.9 % (11.6-14.8); White Blood Cell Count 4.7 X10^3/uL (4.5-11.0)
[2024-01-17 08:50] LABS: Magnesium 2.2 mg/dL (1.6-2.3)
[2024-01-17 08:56] LABS: Alanine Aminotransferase 30 IU/L (<35); Albumin Globulin Ratio 1.9 (1.0-2.8); Alkaline Phosphatase 83 U/L (38-126); Aspartate Aminotransferase 26 IU/L (14-36); BUN Creatinine Ratio 16.3 (6-22); Bilirubin Total 0.5 mg/dL (0.2-1.3); Blood Urea Nitrogen 20 mg/dL (7-17); Calcium 8.9 mg/dL (8.4-10.2); Carbon Dioxide 24 mmol/L (22-32); Chloride 109 mmol/L (98-107); Cholesterol 145 mg/dL (140-199); Estimated Glomerular Filt Rate 48 mL/min (>60); Globulin 2.1 g/dL (1.7-4.1); Glucose 90 mg/dL (80-110); HDL Cholesterol 46 mg/dL (40-60); HEMOLYSIS < 15 (0-50); LDL Cholesterol Calculated 74 mg/dL (<100); Potassium 4.3 mmol/L (3.4-5.1); Sodium 138 mmol/L (137-145); Total Protein 6.1 g/dL (6.3-8.2); Triglycerides 125 mg/dL (35-150)
[2024-01-17 08:58] LABS: Appearance Urine UA CLEAR; Bilirubin Urine UA NEGATIVE (NEGATIVE); Color Urine UA YELLOW; Glucose Urine UA NEGATIVE (Negative); Ketones Urine UA NEGATIVE (NEGATIVE); Leukocyte Esterase Urine UA NEGATIVE (NEGATIVE); Nitrite Urine UA NEGATIVE (Negative); Occult Blood Urine UA NEGATIVE (Negative); Protein Urine UA NEGATIVE (Negative); Specific Gravity Urine UA <=1.005 (1.000-1.035); Urobilinogen Urine UA 0.2 E.U./dL (0.2)
[2024-01-17 09:02] LABS: Free T4, Direct Thyroxine 1.04 ng/dL (0.78-2.19)
[2024-01-17 09:14] LABS: pH Urine UA 5.5 (4.5-8.0)
[2024-01-17 09:17] LABS: Thyroid Stimulating Hormone 2.52 uIU/mL (0.47-4.68)
[2024-01-17 09:21] LABS: Bacteria Urine Few (2-10); RBC Urine None Seen (0-5/HPF); Squamous Epithelial Cell Urine 0-1 /HPF (0-5/HPF); Urine Volume 10mL (spun); WBC Urine 0-1/HPF (0-5/HPF)
[2024-01-17 09:22] LABS: Culture Indicated Urine Cult Not Indicated
[2024-01-17 09:58] LABS: Creatinine Urine Random 69.49 mg/dL
[2024-01-17 10:09] LABS: Microalbumin Urine Random < 0.6 mg/dL (0-1.6)
[2024-01-17 12:44] LABS: Hemoglobin A1C% w Est Avg Glu 5.1 % (4.0-6.0)
== END ==
PROVIDERS: PCP Internal Medicine; Referring Provider Specialist; Visit Provider Specialist
DX: I12.9 Hypertensive chronic kidney disease with stage 1 through stage 4 chronic kidney disease, or unspecified chronic kidney disease (principal); N18.31 Chronic kidney disease, stage 3a; R73.03 Prediabetes; E78.2 Mixed hyperlipidemia; E03.9 Hypothyroidism, unspecified
CPT/HCPCS: 36415; 80053; 80061; 81001; 82043; 82310; 82570; 83036; 83735; 83970; 84439; 84443; 85025

== ENCOUNTER → 2024-04-30 11:27 | Outpatient (CLI) | payer MEDICARE, SELFPAY ==
[2024-04-30 13:12] LABS: BUN Creatinine Ratio 15.2 (6-22); Blood Urea Nitrogen 21 mg/dL (7-17); Estimated Glomerular Filt Rate 41 mL/min (>60)
== END ==
PROVIDERS: PCP Internal Medicine; Referring Provider Internal Medicine; Visit Provider Internal Medicine
DX: Z01.812 Encounter for preprocedural laboratory examination (principal); R10.2 Pelvic and perineal pain; G89.29 Other chronic pain
CPT/HCPCS: 36415; 82565; 84520

== ENCOUNTER → 2024-05-01 10:51 | Outpatient (CLI) | payer MEDICARE, SELFPAY ==
--- NOTE | 2024-05-01 10:52 | DI.CT.S_ITS ---
PROCEDURE: CT ABDOMEN PELVIS W CON INDICATIONS: right hip/pelvic pain TECHNIQUE: After the administration of intravenous contrast, axial sections acquired from the lung bases to the pubic symphysis. Coronal and sagittal reformats were performed. For radiation dose reduction, the following was used: automated exposure control, adjustment of mA and/or kV according to patient size. COMPARISON: [facility], CT, CT ABDOMEN PELVIS W CON, 06/04/2019, 12:53. FINDINGS: Image quality: Diagnostic. Lower Chest: Tiny hiatal hernia. Trace pericardial fluid. ABDOMEN: Liver: Small hemangioma in the right liver measuring 1.3 cm, (2/31), similar. Probable additional small hemangioma or cyst. Gallbladder: No radiopaque gallstones or wall thickening. Biliary ducts: No biliary dilation. Pancreas: No ductal dilation. Spleen: Size is within normal limits. Adrenal Glands: No adrenal nodules. Kidneys and Ureters: No hydronephrosis. No solid mass. No complex renal cystic lesion which requires follow up. Stomach and Bowel: Normal colonic caliber, without significant wall thickening. Diverticulosis. Normal appendix. Peritoneum: No abnormal intraperitoneal fluid. No free air. Ventral Wall: Tiny umbilical hernia. Abdominal Nodes: No retroperitoneal or mesenteric adenopathy by size criteria. Vessels: Aorta and inferior vena cava are normal in size. PELVIS: Pelvic Organs: Retroflexed uterus. Bladder: No bladder wall thickening, accounting for underdistention. Pelvic Nodes: No enlarged lymph nodes. Miscellaneous: No inguinal hernias are seen. Bones: No aggressive osseous abnormality. [id number] right hip DJD. Mild left hip DJD. Findings not significantly changed. IMPRESSION: 1. Mild to moderate right hip DJD. Not significantly changed. 2. No acute abnormality identified in the abdomen or pelvis. No free fluid. Normal appendix. 3. Diverticulosis. Dictated by: Aaron Calvert M.D. on 05/01/2024 at 16:05 Approved by: Aaron Calvert M.D. on 05/01/2024 at 16:16
== END ==
PROVIDERS: PCP Internal Medicine; Referring Provider Internal Medicine; Visit Provider Internal Medicine
DX: K57.90 Diverticulosis of intestine, part unspecified, without perforation or abscess without bleeding (principal); M16.0 Bilateral primary osteoarthritis of hip; R10.2 Pelvic and perineal pain; G89.29 Other chronic pain
CPT/HCPCS: 74177; Q9967

== ENCOUNTER → 2024-09-16 08:05 | Outpatient (CLI) | payer MEDICARE, OTHER, SELFPAY ==
[2024-09-16 09:25] LABS: Alanine Aminotransferase 34 IU/L (<35); Albumin 4.1 g/dL (3.5-5.0); Albumin Globulin Ratio 1.9 (1.0-2.8); Alkaline Phosphatase 66 U/L (38-126); Aspartate Aminotransferase 31 IU/L (14-36); BUN Creatinine Ratio 18.2 (6-22); Bilirubin Total 0.6 mg/dL (0.2-1.3); Blood Urea Nitrogen 22 mg/dL (7-17); Calcium 10.2 mg/dL (8.4-10.2); Carbon Dioxide 28 mmol/L (22-32); Chloride 104 mmol/L (98-107); Cholesterol 211 mg/dL (140-199); Estimated Glomerular Filt Rate 49 mL/min (>60); Globulin 2.2 g/dL (1.7-4.1); Glucose 89 mg/dL (80-110); HDL Cholesterol 66 mg/dL (40-60); HEMOLYSIS < 15 (0-50); LDL Cholesterol Calculated 128 mg/dL (<100); Potassium 4.2 mmol/L (3.4-5.1); Total Protein 6.3 g/dL (6.3-8.2); Triglycerides 87 mg/dL (35-150)
[2024-09-16 09:36] LABS: Free T3, Triiodothyronine Free 3.36 pg/mL (2.77-5.27)
[2024-09-16 09:49] LABS: Thyroid Stimulating Hormone 3.27 uIU/mL (0.47-4.68)
[2024-09-16 10:18] LABS: Sodium 138 mmol/L (137-145)
== END ==
PROVIDERS: PCP Internal Medicine; Referring Provider Internal Medicine; Visit Provider Internal Medicine
DX: E78.2 Mixed hyperlipidemia (principal); E03.9 Hypothyroidism, unspecified; N18.31 Chronic kidney disease, stage 3a; I12.9 Hypertensive chronic kidney disease with stage 1 through stage 4 chronic kidney disease, or unspecified chronic kidney disease
CPT/HCPCS: 36415; 80053; 80061; 84443; 84481

== ENCOUNTER → 2024-10-03 11:04 | Outpatient (CLI) | payer MEDICARE, OTHER, SELFPAY ==
--- NOTE | 2024-10-03 11:09 | DI.MRI.S_ITS ---
PROCEDURE: MR LUMBAR SPINE WO CON INDICATIONS: LEG NUMBNESS TECHNIQUE: Noncontrast sagittal T1 spin echo and T2 fast echo, sagittal STIR, and T2 fast spin echo through the lumbar spine. In cases with scoliosis, additional coronal T2 fast spin echo may be performed. COMPARISON: CR, XR LUMBAR SPINE 2-3V, 12/16/2018, 13:46. FINDINGS: Image quality: Excellent. Alignment and Curvature: There is trace retrolisthesis of L3 on L4. Bone Marrow: Marrow is of normal overall signal. No acute vertebral body compression fractures. Spinal Cord: Conus medullaris terminates at the L1 level. Visualized cord demonstrates normal signal and size. Paraspinous Soft Tissues: No paravertebral masses. T12-L1: No disc bulge, spinal stenosis or foraminal narrowing. L1-L2: Minimal disc bulge without spinal stenosis or foraminal narrowing. L2-L3: Mild disc bulge with minimal canal narrowing. No spinal stenosis. L3-L4: Mild disc bulge with mild spinal stenosis. Mild bilateral foraminal narrowing. Facet and ligamentum flavum hypertrophy. L4-L5: Mild disc bulge with mild spinal stenosis. Minimal to mild bilateral foraminal narrowing. Facet and ligamentum flavum hypertrophy. L5-S1: Mild disc bulge without spinal stenosis. Mild bilateral foraminal narrowing left greater than right with facet and ligamentum flavum hypertrophy. IMPRESSION: Multilevel disc bulges. Multilevel overall mild spinal stenosis secondary to disc bulge with contributing effect of facet/ligamentum flavum arthropathy. Minimal to mild bilateral foraminal narrowing secondary to facet/ligamentum flavum arthropathy. Dictated by: Frida Dotson M.D. on 10/03/2024 at 15:56 Approved by: Frida Dotson M.D. on 10/03/2024 at 15:58
== END ==
LOC: MRI 11:05
PROVIDERS: PCP Internal Medicine; Referring Provider Physical Medicine & Rehabilitation Pain Medicine; Visit Provider Physical Medicine & Rehabilitation Pain Medicine
DX: M51.369 Other intervertebral disc degeneration, lumbar region without mention of lumbar back pain or lower extremity pain (principal); M51.379 Other intervertebral disc degeneration, lumbosacral region without mention of lumbar back pain or lower extremity pain; M48.061 Spinal stenosis, lumbar region without neurogenic claudication; M48.07 Spinal stenosis, lumbosacral region; M47.816 Spondylosis without myelopathy or radiculopathy, lumbar region; M47.817 Spondylosis without myelopathy or radiculopathy, lumbosacral region; R20.0 Anesthesia of skin; M76.892 Other specified enthesopathies of left lower limb, excluding foot
CPT/HCPCS: 72148

== ENCOUNTER → 2025-05-13 14:58 | Outpatient (CLI) | payer MEDICARE, OTHER, SELFPAY ==
--- NOTE | 2025-05-13 14:59 | DI.MG.S_ITS ---
MM screening mammo BI: 05/13/2025. BI-RADS: 2 CLINICAL: 70-year old female for bilateral screening mammogram. Tyrer-Cuzick lifetime risk of 5.4%. No personal or first-degree family history of breast cancer. The patient had a prior left breast biopsy. PRIOR EXAMS 10/04/2023, 06/30/2021, 06/16/2020, 08/09/2018. MAMMOGRAPHY TECHNIQUE: 2D and 3D (tomosynthesis) digital mammographic views obtained, with additional images as needed for full coverage. Current study was also evaluated with a Computer Aided Detection (CAD) system. DENSITY B. There are scattered areas of fibroglandular density. MAMMOGRAPHY FINDINGS Right: No suspicious mass, asymmetry, microcalcification, or other abnormality seen. No significant change from comparison. Left: Surgical clips present on the left. Benign-appearing post-surgical changes noted on the left. There are no suspicious masses, calcifications, or other findings in the breast. No significant change from comparison. IMPRESSION: Right * No evidence of malignancy. Left * No evidence of malignancy with benign findings. RECOMMENDATIONS Bilateral * Annual screening mammography. OVERALL ASSESSMENT CATEGORY BI-RADS-2: Benign. [employer] recommends annual screening mammography beginning at age 40 for women with average risk of breast cancer. ELECTRONICALLY SIGNED: Margarita Cameron M.D. on 05/14/2025 at 12:02:32 PM PT Interpreting Station ID: [id number]
== END ==
LOC: MAMMO 14:59
PROVIDERS: PCP Internal Medicine; Referring Provider Internal Medicine; Visit Provider Internal Medicine
DX: Z12.31 Encounter for screening mammogram for malignant neoplasm of breast (principal)
CPT/HCPCS: 77063; 77067

== ENCOUNTER → 2025-06-09 08:25 | Outpatient (CLI) | payer MEDICARE, OTHER, SELFPAY ==
[2025-06-09 08:58] LABS: Appearance Urine UA CLEAR; Bilirubin Urine UA NEGATIVE (NEGATIVE); Color Urine UA YELLOW; Glucose Urine UA NEGATIVE (Negative); Ketones Urine UA NEGATIVE (NEGATIVE); Leukocyte Esterase Urine UA TRACE (NEGATIVE); Nitrite Urine UA NEGATIVE (Negative); Occult Blood Urine UA NEGATIVE (Negative); Protein Urine UA NEGATIVE (Negative); Specific Gravity Urine UA 1.010 (1.000-1.035); Urobilinogen Urine UA 0.2 E.U./dL (0.2)
[2025-06-09 09:00] LABS: pH Urine UA 5.5 (4.5-8.0)
[2025-06-09 09:08] LABS: Culture Indicated Urine Cult Not Indicated
[2025-06-09 09:13] LABS: Add Manual Diff / Slide Review NO; Hematocrit 37.9 % (36-46); Hemoglobin 13.2 g/dL (12.0-16.0); Lymphocytes Absolute Auto 1500 /uL (1100-4500); Mean Corpuscular HGB Conc 34.7 % (30-36); Mean Corpuscular Hemoglobin 30.7 PG (26-34); Mean Corpuscular Volume 88.4 fL (80-100); Platelet Count 206 X10^3/uL (150-400)
[2025-06-09 09:27] LABS: Alanine Aminotransferase 33 IU/L (<35); Albumin 4.3 g/dL (3.5-5.0); Albumin Globulin Ratio 1.8 (1.0-2.8); Alkaline Phosphatase 61 U/L (38-126); Blood Urea Nitrogen 28 mg/dL (7-17); Calcium 9.9 mg/dL (8.4-10.2); Carbon Dioxide 24 mmol/L (22-32); Chloride 105 mmol/L (98-107); Estimated Glomerular Filt Rate 52 mL/min (>60); Globulin 2.4 g/dL (1.7-4.1); Glucose 77 mg/dL (70-99); HEMOLYSIS 16 (0-50); Magnesium 1.9 mg/dL (1.6-2.3); Phosphorous 3.6 mg/dL (2.8-4.1); Potassium 4.3 mmol/L (3.4-5.1); Sodium 137 mmol/L (137-145); Total Protein 6.7 g/dL (6.3-8.2)
[2025-06-09 09:31] LABS: Microalbumi Creatinin Ratio Ur 8.0 ug/mg CR (<30)
== END ==
PROVIDERS: PCP Internal Medicine; Referring Provider Internal Medicine; Visit Provider Specialist
DX: I12.9 Hypertensive chronic kidney disease with stage 1 through stage 4 chronic kidney disease, or unspecified chronic kidney disease (principal); N18.31 Chronic kidney disease, stage 3a
CPT/HCPCS: 36415; 80053; 81001; 82043; 82570; 83735; 84100; 85025